=== PATIENT | male | born 1960 | race Caucasian/White ===

== ENCOUNTER 2018-11-06 15:22 | Inpatient (IN) | payer MEDICAID ==
[~2018-11-06] VITALS: Ht 188 cm; Wt 106.6 kg
--- NOTE | ~2018-11-06 | TEE ---
PATIENT:ZENOBIA TREJO MEDICAL RECORD: [id number] LOCATION:[place] [address] AGE OF PATIENT: 58 ADMISSION DATE: 11/06/18 SEX: M REFERRING PHYSICIAN: INTERPRETING PHYSICIAN: BLAINE BAUGH MD TRANSESOPHAGEAL ECHOCARDIOGRAM Date: 11/08/18 VIN CHARGE INDICATIONS: PREMEDICATIONS: PATIENT'S RESPONSE PROCEDURE DOPPLER MEASUREMENTS: LVIT LA PA 119 RA LVOT 113 RVOT 101 Asc. Ao 146 AV Gradient Peak 8.49 AV Mean 4.31 AV Area 2.9 MV Gradient Peak 4.23 MV Mean 1.96 MV Area INTERPRETATION: Doppler: 2-D: COLOR FLOW DOPPLER NORMAL SALINE STUDY: MISCELLANOUS: DIAGNOSIS: PLAN: Javascript Front End Developer:1 Dr. Baugh Hydrant Setter: Socorro MUJICA COMMENTS: DATE OF SERVICE: 11/12/2018 PROCEDURE: Attempted transesophageal echo. IV conscious sedation was per anesthesia. Transesophageal echo was attempted. The probe would pass to the proximal esophagus and then the probe would go no further. Most likely, there is esophageal stricture. Anesthesia tried as well and could not pass the probe. This would have to be done under general anesthesia if transesophageal echo is desired. TRANSESOPHAGEAL ECHOCARDIOGRAM REPORT [id number] ZENOBIA TREJO TRANSINT:[id number] Voice Confirmation ID: [id number] DOCUMENT ID: [id number] BLAINE BAUGH MD CC: [id number] DICTATION DATE: 11/12/18 1202 DOLL MAKER: 11/12/[address] [facility] [address] [place] [address]
--- NOTE | ~2018-11-06 | CN ---
PATIENT NAME:ZENOBIA TREJO MEDICAL RECORD: [id number] : 64 LOCATION:[facility] D.1210 ADMIT DATE: 11/06/18 ACCOUNT: [id number] CONSULTING PHYSICIAN: BLAINE FERNANDEZ MD REFERRING PHYSICIAN: ALENA ADORNO MD DATE OF CONSULTATION: 11/11/2018 CARDIOLOGY CONSULT DIAGNOSES: 1. Endocarditis. 2. Pancreatitis. 3. ETOH abuse. 4. Hypertension. 5. Tachycardia. 6. GERD. HISTORY: This is a gentleman who presented to the hospital with pancreatitis, withdrawal, and ETOH symptoms. 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 PHYSICAL EXAMINATION: GENERAL APPEARANCE: Well-nourished, well-developed, appears stated age. Level of distress, comfortable. PSYCHIATRIC: Mental status, alert, normal affect. Orientation, oriented to time, place and person. EYES: Lids and conjunctiva, noninjected. No discharge, no pallor. ENT: Lips, teeth, gums, normal dentition. Oropharynx, no cyanosis, no pallor. NECK: Carotid arteries, bilateral normal upstroke, no bruits, no thrills. JUGULAR VEINS: No jugular venous pressure or distention. CERVICAL LYMPH NODES: Nontender, nonenlarged. THYROID: Not enlarged. Nontender. No nodules. LUNGS: Respiratory effort, unlabored. CHEST: Normal curvature. No thoracic deformity. No chest wall tenderness. Percussion, resonant. Auscultation, clear. No wheezes, no rales, no rhonchi. CARDIOVASCULAR: Precordial exam, nondisplaced. No heaves or pericardial thrills. Rate and rhythm, regular. Heart sounds, normal S1, normal S2. No S3, no gallop, no rub. Systolic murmur, not heard. Diastolic murmur, not heard. EXTREMITIES: No cyanosis, no edema. Peripheral pulses, full and equal in all extremities, except as noted. No bruits appreciated. ABDOMEN: Soft, nondistended. Normal aorta. No bruit. Nontender. No masses. Liver, nontender, no hepatomegaly. Spleen, nontender, no splenomegaly. MUSCULOSKELETAL: No joint tenderness. No joint swelling. No erythema. NEUROLOGICAL: Normal gait, normal strength, normal tone. SKIN: Warm and dry. OVERALL IMPRESSION: Abnormal echo. We will proceed with transesophageal echo. TRANSINT:[id number] Voice Confirmation ID: [id number] DOCUMENT ID: [id number] CONSULT REPORT [id number] ZENOBIA TREJO JEFFREY MD CC: [id number] DICTATION DATE: 11/11/18 1009 MILK OF LIME SLAKER: 11/11/18 1332 ADM IN [facility] [address] [place] [id number]
--- NOTE | ~2018-11-06 | HEMODYNAMI ---
PATIENT:ZENOBIA TREJO MEDICAL RECORD: [id number] : 64 LOCATION:[address] ADMISSION DATE: 11/06/18 Generatedon:11/12/201812:14 Patient name: ZENOBIA TREJO Patient #: [id number] SSN: : 1960 Date of study: 11/12/2018 Page: Of Hemodynamic Procedure Report Patient Data Patient Demographics Procedure consent was obtained First Name: ZENOBIA Gender: Male Last Name: MAYA : 1960 Patient #: [id number] Age: 58 year(s) Race: Additional ID: [id number] Contact details [address]: [address] [place] [address] State: [place] City: [place] Zip code: [address] Past Medical History Allergies: No known allergies Admission Admission Data Admission Date: 11/06/2018 Admission Time: 18:21 Room #: [facility] Procedure Procedure Types Cath Procedure Diagnostic Procedure VIN Procedure Description Procedure Date Procedure Date: 11/12/2018 Procedure Start Time: 11:48 Procedure End Time: 12:08 Procedure Staff Name Function Anand Baugh MD Performing Physician Malcolm Leon RT Monitor Oracio Wong RN Nurse Procedure Medications Medication Administration Route Dosage Oxygen NC 6 l/min 0.9% NaCl I.V. 100 ml/hr Refer to Anesthesia Notes for Sedation Medications Hemodynamics Rest Heart Rate: 0 (bpm) Snapshots Pre Cath Intra NCS Post Cath Vital Signs Time Heart Resp SPO2 etCO2 NIBP (mmHg) Rhythm Pain Sedation Rate (ipm) (%) (mmHg) Status Level (bpm) 11:33:42 90 16 68 0 125/72(92) NSR 0 (11) 10(A) , No pain 11:37:54 86 16 97 0 118/76(93) NSR 0 (11) 10(A) , No pain 11:42:06 84 16 96 0 125/74(95) NSR 0 (11) 10(A) , No pain 11:46:14 91 17 95 0 122/85(102) NSR 0 (11) 10(A) , No pain 11:50:26 84 14 96 0 114/69(88) NSR 0 (11) 10(A) , No pain 11:55:25 87 25 92 0 Measuring NSR 0 (11) 10(A) , No pain 11:56:32 93 29 91 0 117/73(94) NSR 0 (11) 10(A) , No pain 12:00:44 91 18 92 0 122/75(91) NSR 0 (11) 10(A) , No pain 12:04:58 82 18 90 0 108/66(81) NSR 0 (11) 10(A) , No pain 12:08:21 85 19 89 0 115/69(92) NSR 0 (11) 10(A) , No pain 12:12:35 89 16 89 0 117/73(98) NSR 0 (11) 10(A) , No pain Medications Time Medication Route Dose Verified Delivered Reason Notes Effectiven ess by by 11:47:16 Oxygen NC 6 Anand Narayanan Per l/min Lupis Wong RN physician 11:47:24 0.9% NaCl I.V. 100 Anand Narayanan Per ml/hr Lupis Wong RN physician 11:47:29 Refer to Anand Narayanan Anesthesia Lupis Wong RN Notes for Sedation Medications Procedure Log Time Note 11:00:06 Informed consent obtained and on chart 11:00:11 Diagnostic Cath Status : Elective 11:02:46 Time tracking: Regular hours (M-F 7:00 - 5:00) 11:02:52 Plan of Care:Hemodynamics will remain stable., Cardiac rhythm will remain stable., Comfort level will be maintained., Respiratory function will remain adequate., Patient/ family verbilizes understanding of procedure., Procedure tolerated without complication., Recovers from procedure without complications.. 11:31:13 Patient received from Other to CCL 3 Alert and oriented. Tansferred to table in Supine position. 11:32:32 Warm blankets applied, and renetta hugger turned on for patient comfort. 11:32:33 Correct patient and procedure confirmed by team. 11:32:35 ECG and BP/O2 sat monitors applied to patient. 11:32:36 Vital chart was started 11:32:54 Baseline sample Acquired. 11:32:58 Rhythm: sinus rhythm 11:33:00 Full Disclosure recording started 11:35:59 H&P Date Dictated: 11/07/2018 Within 30 days and on chart.. 11:36:33 Pre-op teaching completed and patient verbalized understanding. 11:36:36 Family in patients room. 11:37:00 Patient NPO since Midnight. 11:37:10 Patient allergic to No known allergies 11:37:14 Patient diabetic? No. 11:37:19 Previous problem with sedation/anesthesia? No ? 11:37:21 Snore? Yes 11:37:23 Sleep apnea? No 11:37:24 Deviated septum? No 11:37:25 Opens mouth fully? Yes 11:37:27 Sticks out tongue? Yes 11:37:29 Airway obstruction? No ? 11:38:20 Dentures? Yes PARTIAL IN 11:38:33 IV patent on arrival in right forearm with 0.9% NaCl at O. 11:38:39 Alarms reviewed by Inga cK 11:39:49 Baseline sample Acquired. 11:42:47 ECHO IS PRESENT 11:43:12 FELIPE OTT WITH ANESTHESIA IS PRESENT 11:44:06 Physician arrived 11:44:07 --------ALL STOP TIME OUT------ 11:44:08 Final Timeout: patient, procedure, and site verified with staff and physician. All members of the team are in agreement. 11:44:42 Fire Safety Assessment: C--Open oxygen or nitrous oxide is being used. 11:44:47 Physical assessment completed. ASA score P 2 - A patient with mild systemic disease as per Anand Baugh MD. 11:44:53 Sedation plan: IV Moderate Sedation Medication:Propofol 11:47:16 Oxygen 6 l/min NC was administered by Oracio Wong RN; Per physician; 11:47:24 0.9% NaCl 100 ml/hr I.V. was administered by Oracio Wong RN; Per physician; 11:47:29 Refer to Anesthesia Notes for Sedation Medications was administered by Oracio Wong RN; ; 11:48:31 Procedure started. 11:50:23 VIN started. 11:59:39 UNABLE TO ADVANCE VIN PROBE , PROCEDURE ABORTED 12:00:14 Procedure ended.(Physican Out) 12:08:58 Procedure ended. 12:08:58 Full Disclosure recording stopped 12:13:51 End room use (Document Last) 12:14:35 Vital chart was stopped Signature Audit [place] Stage Time Signature Unsigned Intra-Procedure 11/12/2018 Malcolm Leon 12:14:20 PM RT(R) (CV) Signatures Monitor : Malcolm Leon RT Signature : Date : Time : [place] [id number] [place] [address]
[~2018-11-06 15:22] MED LIST: AMBIEN10 MG PO; HYDROCODONE-APA1 TAB PO; PEPCID20 MG PO; PRILOSEC20 MG PO; VALTREX500 MG PO
[2018-11-06 15:45] LABS: BASOPHILS 0.1 % (0-2); EOSINOPHILS 0.1 % (0-7); HEMATOCRIT 44.2 % (42.0-54.0); HEMOGLOBIN 15.7 g/dL (13.5-17.5); IMMATURE GRANULOCYTES 0.4 % (0-5); LYMPHOCYTES 8.1 % (15-50); MCH 33.4 pg (26.0-34.0); MCHC 35.5 g/dL (31.0-37.0); MEAN PLATELET VOLUME 9.5 fL (7.4-10.4); MONOCYTES 6.5 % (2-11); NEUTROPHILS 84.8 % (40-80); RDW 12.4 % (11.5-14.5); WBC 19.7 10x3/uL (4.8-10.8)
[2018-11-06 15:47] LABS: PLATELET COUNT 225 10x3/uL (130-400)
[2018-11-06 16:01] LABS: ALBUMIN 3.8 g/dL (3.4-5.0); BILIRUBIN - TOTAL 0.61 mg/dL (0.2-1.3); CARBON DIOXIDE 23.5 mmol/L (21.0-32.0); CREATININE - SERUM 1.1 mg/dL (0.6-1.3); POTASSIUM - SERUM 3.5 mmol/L (3.5-5.1); PROTEIN - SERUM 8.3 g/dL (6.4-8.2)
[2018-11-06 18:15] LABS: APPEARANCE CLEAR (CLEAR); BILIRUBIN NEGATIVE (NEGATIVE); COLOR YELLOW (YELLOW); GLUCOSE NEGATIVE (NEGATIVE); KETONE NEGATIVE (NEGATIVE); NITRITE NEGATIVE (NEGATIVE); PROTEIN NEGATIVE (NEGATIVE); SPECIFIC GRAVITY 1.015 (1.005-1.020); UROBILINOGEN NORMAL (NORMAL)
--- NOTE | 2018-11-06 19:15 | NUR ---
REPORT CALLED TO PT'S NURSE ON THE FLOOR BY LAURA CASTRO.
--- NOTE | 2018-11-06 19:50 | NUR ---
PT ARRIVED ON UNIT VIA WHEELCHAIR WITH MOTHER AND STAFF MEMBER. PT DENIES NEEDS OR PAIN AT THIS TIME. WILL CONTINUE TO MONITOR
--- NOTE | 2018-11-06 19:50 | NUR ---
PT ARRIVED ON UNIT VIA WHEELCHAIR WITH . PT DENIES NEEDS OR PAIN AT THIS TIME. WILL CONTINUE TO MONITOR.
[2018-11-06 20:00] VITALS: BP 155/96
[2018-11-07] VITALS: BP 124/73
--- NOTE | 2018-11-07 00:35 | NUR ---
PT TEMP WAS 103.1. CALLED [facility]. [facility] ORDERED BLOOD CULT X2, CHEST XRAY, UA, AND CHANGED MERREM FROM Q12H TO Q8H. TYLENOL WAS ALSO ORDER 650 Q6PRN FOR FEVER. WILL CONTINUE TO MONITOR.
--- NOTE | 2018-11-07 01:37 | NUR ---
MERREM NOT IN PYXIS. HOUSE SUP IS GETTING MED. WILL ADMINISTER WHEN AVAILABLE
--- NOTE | 2018-11-07 02:31 | NUR ---
TEMP IS NOW 99.3
[2018-11-07 04:30] VITALS: BP 125/75
[2018-11-07 05:15] VITALS: BP 155/96; BMI 30.2
[2018-11-07 07:12] LABS: BASOPHILS 0.1 % (0-2); EOSINOPHILS 0 % (0-7); HEMOGLOBIN 14.3 g/dL (13.5-17.5); IMMATURE GRANULOCYTES 0.2 % (0-5); LYMPHOCYTES 5.6 % (15-50); MCH 32.9 pg (26.0-34.0); MCHC 34.9 g/dL (31.0-37.0); MCV 94.3 fL (80.0-100.0); MEAN PLATELET VOLUME 9.9 fL (7.4-10.4); MONOCYTES 3.6 % (2-11); NEUTROPHILS 90.5 % (40-80); RBC 4.35 10x6/uL (4.20-6.10); RDW 12.6 % (11.5-14.5)
--- NOTE | 2018-11-07 07:20 | NUR ---
PT RESTING IN BED, EYES OPEN. C/O PAIN, PT GIVEN MORPHINE FOR PAIN. NO S/S OF ACUTE DISTRESS NOTED. PT NPO D/T PANCREATITIS. PT ALERT AND ORIENTED. UP AD JERMAINE. IV TO RIGHT WRIST, NS INFUSING @ 200ML/HR. SITE PATENT WITHOUT REDNESS OR SWELLING. POTASSIUM 3.1, GIVEN POTASSIUM TO COVER. PT DENIES ANYTHING FURTHER AT THIS TIME. CALL LIGHT IN REACH. FAMILY AT BEDSIDE. WILL CONTINUE TO MONITOR.
[2018-11-07 07:37] LABS: ALBUMIN 3.1 g/dL (3.4-5.0); ANION GAP 18.4 mmol/L (8-16); BILIRUBIN - TOTAL 1.45 mg/dL (0.2-1.3); CALCIUM 7.9 mg/dL (8.5-10.1); CARBON DIOXIDE 20.7 mmol/L (21.0-32.0); POTASSIUM - SERUM 3.1 mmol/L (3.5-5.1); PROTEIN - SERUM 6.8 g/dL (6.4-8.2)
[2018-11-07 07:38] LABS: PLATELET COUNT 148 10x3/uL (130-400); WBC 12.4 10x3/uL (4.8-10.8)
[2018-11-07 07:54] LABS: CREATININE - SERUM 1.4 mg/dL (0.6-1.3)
[2018-11-07 08:22] LABS: APPEARANCE CLEAR (CLEAR); COLOR YELLOW (YELLOW); SPECIFIC GRAVITY 1.015 (1.005-1.020)
[2018-11-07 08:23] LABS: NITRITE NEGATIVE (NEGATIVE); PROTEIN NEGATIVE (NEGATIVE)
[2018-11-07 08:24] LABS: BILIRUBIN NEGATIVE (NEGATIVE); GLUCOSE 100 mg/dL (NEGATIVE); KETONE NEGATIVE (NEGATIVE); UROBILINOGEN NORMAL (NORMAL)
[2018-11-07 08:25] LABS: BACTERIA FEW /hpf (NONE SEEN); EPITHELIAL CELLS NSEEN /hpf (0-5); RED CELLS - URINE 0-5 /hpf (0-5); WHITE CELLS - URINE 0-5 /hpf (0-5)
[2018-11-07 08:55] VITALS: BP 130/84
[2018-11-07 10:36] LABS: UDS - AMPHET NEGATIVE QUAL (NEGATIVE); UDS - BARB NEGATIVE QUAL (NEGATIVE); UDS - BENZO NEGATIVE QUAL (NEGATIVE); UDS - COCAINE NEGATIVE QUAL (NEGATIVE); UDS - OPIATE POSITIVE QUAL (NEGATIVE); UDS - PCP NEGATIVE QUAL (NEGATIVE); UDS - THC NEGATIVE QUAL (NEGATIVE)
[2018-11-07 11:41] VITALS: BP 116/57
[2018-11-07 14:13] VITALS: Ht 188 cm; Wt 106.6 kg
--- NOTE | 2018-11-07 19:00 | NUR ---
PT ALERT AND ORIENTED WHEN ENTERING THE ROOM. PT MOTHER AT BEDSIDE. PT PRESENTS WITH ABDOMINAL DISTENSION. STATES THIS IS "NOT NORMAL" RATES PAIN 04/23. STATES "I KNOW I CANT HAVE MY PAIN MEDICINE UNTIL AFTER 8:15." PT STATES PAIN RADIATES TO EITHER SIDE OF THE ABDOMEN. PT HAS RIGHT HAND IV THAT IS INFUSING NS AT 50/ML AN HOUR. CALL LIGHT IN REACH.
--- NOTE | 2018-11-07 19:19 | NUR ---
PT RESTING IN BED. NO C/O PAIN. NO S/S OF ACUTE DISTRESS NOTED. PT DENIES ANYTHING FURTHER AT THIS TIME. WILL CONTINUE TO MONITOR.
--- NOTE | 2018-11-07 19:32 | NUR ---
PT MOTHER CAME TO DESK AND STATED THAT SHE WILL BE LEAVING SOON AND ASKED THAT THIS NURSE GIVE PT PAIN MEDICINE EARLY. EXPLAINED TO PT AND TO MOTHER THAT I CAN NOT GIVE MEDS EARLY AND PT HAS TO ASK FOR PRN MEDICINE WHEN THEYRE NEEDED. PT AND MOTHER VERBALIZED UNDERSTANDING.
[2018-11-07 20:22] VITALS: BP 128/83
--- NOTE | 2018-11-07 20:30 | NUR ---
ASSESSED PT VITAL SIGNS. PT ASKED FOR PAIN MEDICINE. ADMINISTERED TO PT AND TOLERATED WELL WITH OTHER HS MEDICATIONS. RATED PAIN "HEAVY 9". PT STATED HE PLANS TO GO TO SLEEP NOW. CALL LIGHT IN REACH.
[2018-11-08] VITALS (7 sets, daily range): BP systolic 106–140; BP diastolic 62–84
--- NOTE | 2018-11-08 02:13 | NUR ---
I have reviewed this patient and I concur with the Shift Assessment completed by the Licensed Practical Nurse today this shift.
[2018-11-08 06:30] LABS: BASOPHILS 0.1 % (0-2); EOSINOPHILS 0 % (0-7); HEMATOCRIT 38.7 % (42.0-54.0); HEMOGLOBIN 13.4 g/dL (13.5-17.5); MCH 32.7 pg (26.0-34.0); MCHC 34.6 g/dL (31.0-37.0); MCV 94.4 fL (80.0-100.0); MEAN PLATELET VOLUME 10.2 fL (7.4-10.4); MONOCYTES 4.3 % (2-11); NEUTROPHILS 89.6 % (40-80); RDW 12.8 % (11.5-14.5); WBC 12.2 10x3/uL (4.8-10.8)
[2018-11-08 06:42] LABS: PLATELET COUNT 114 10x3/uL (130-400)
[2018-11-08 06:54] LABS: CREATININE - SERUM 1.2 mg/dL (0.6-1.3)
[2018-11-08 06:55] LABS: ALBUMIN 2.5 g/dL (3.4-5.0); ANION GAP 14.8 mmol/L (8-16); BILIRUBIN - TOTAL 3.77 mg/dL (0.2-1.3); CALCIUM 8.2 mg/dL (8.5-10.1); CARBON DIOXIDE 24.1 mmol/L (21.0-32.0); POTASSIUM - SERUM 3.9 mmol/L (3.5-5.1); PROTEIN - SERUM 6.8 g/dL (6.4-8.2)
--- NOTE | 2018-11-08 07:40 | NUR ---
ASSESSMENT COMPLETE. IV TO R HAND WITH REDNESS AND TENDERNESS NOTED. IV REMOVED. CATHETER TIP INTACT. IV RESITED TO R FA WITH 20 GAUGE X 1 ATTEMPT. PROCALAMINE INFUSING AT 75 CC/HR VIA PUMP. SCD'S IN USE TO BILAT LEGS. MOTHER AT BEDSIDE. DENIES ANY NEEDS AT THIS TIME.
--- NOTE | 2018-11-08 08:53 | NUR ---
DILAUDID GIVEN SLOW IVP FOR ABDOMINAL PAIN.
--- NOTE | 2018-11-08 13:01 | NUR ---
DILAUDID GIVEN SLOW IVP FOR COMPLAINT OF ABDOMINAL PAIN.
--- NOTE | 2018-11-08 17:11 | NUR ---
DILAUDID GIVEN SLOW IVP FOR ABDOMINAL PAIN. MOTHER AT BEDSIDE. DENIES ANY FURTHER NEEDS AT THIS TIME.
--- NOTE | 2018-11-08 22:55 | NUR ---
RECIEVED UP IN BED WITH EYES CLOSED. EASILY AROUSES WITH VERBAL STIMULI. C/O ABD PAIN. REPORTED PRESSURE. NOCO GIVEN AND EFFECTIVE. REQUESTED HYDRMORPHONE LATER. MED GIVEN AND EFFECTIVE. RESTING IN BED WITH EYES CLOSED AT THIS TIME AND MOTHER AT BEDSIDE. IV TO RIGHT FA WITH NS AT 50CC/HR AND PROCALAMINE AT 75CC/HR.
[2018-11-09 05:00] VITALS: BP 127/72
[2018-11-09 07:34] LABS: BASOPHILS 0.1 % (0-2); EOSINOPHILS 0.3 % (0-7); HEMATOCRIT 33.3 % (42.0-54.0); HEMOGLOBIN 11.5 g/dL (13.5-17.5); IMMATURE GRANULOCYTES 0.4 % (0-5); LYMPHOCYTES 8.5 % (15-50); MCH 32.2 pg (26.0-34.0); MCHC 34.5 g/dL (31.0-37.0); MCV 93.3 fL (80.0-100.0); MEAN PLATELET VOLUME 10.5 fL (7.4-10.4); MONOCYTES 5.9 % (2-11); NEUTROPHILS 84.8 % (40-80); PLATELET COUNT 101 10x3/uL (130-400); RBC 3.57 10x6/uL (4.20-6.10); RDW 12.5 % (11.5-14.5)
[2018-11-09 07:39] LABS: WBC 7.7 10x3/uL (4.8-10.8)
--- NOTE | 2018-11-09 07:45 | NUR ---
ASSESSMENT COMPLETE. IV TO R FA PATENT. PROCALAMINE INFUSING AT 75 CC/HR AND NS INFUSING AT 50 CC/HR VIA PUMP. SCD'S IN USE TO BILAT LEGS. NPO EXCEPT ICE CHIPS. FAMILY AT BEDSIDE.
--- NOTE | 2018-11-09 07:47 | NUR ---
RESTING QUIETLY WITH EYES CLOSED. RESP EVEN,NONLABORED. MOTHER AT BEDSIDE.
[2018-11-09 07:57] LABS: ALBUMIN 2.2 g/dL (3.4-5.0); ALKALINE PHOSPHATASE 61 U/L (46-116); ALT (SGPT) 88 U/L (10-68); BILIRUBIN - TOTAL 8.63 mg/dL (0.2-1.3); CALC OSMOLALITY 274 mosm/kg (275-300); CARBON DIOXIDE 23.7 mmol/L (21.0-32.0); CHLORIDE - SERUM 99 mmol/L (98-107); CREATININE - SERUM 0.9 mg/dL (0.6-1.3); GLUCOSE 242 mg/dL (74-106); LIPASE 261 U/L (73-393); POTASSIUM - SERUM 3.8 mmol/L (3.5-5.1); PROTEIN - SERUM 6.3 g/dL (6.4-8.2); SODIUM 132 mmol/L (136-145); UREA NITROGEN 19 mg/dL (7-18); eGFR NON AFRICAN AMERICAN > 90 mL/min (90-120)
[2018-11-09 07:58] LABS: AMYLASE - SERUM 20 U/L (25-115)
[2018-11-09 08:00] VITALS: BP 123/73
--- NOTE | 2018-11-09 10:30 | NUR ---
MRI OF ABDOMEN COMPLETED.
--- NOTE | 2018-11-09 12:15 | NUR ---
NOTIFIED BY FORM WORKER THAT O2 SAT WOULDN'T COME ABOVE 88% WHILE OBTAINING VITAL SIGNS. O2 SAT 88% ON RA. O2 2L NC APPLIED. O2 SAT SAT 89%. O2 INCREASED TO 3L NC. O2 SAT 91%. ENCOURAGED TO BREATH THROUGH NOSE. FAMILY AT BEDSIDE.
[2018-11-09 12:16] VITALS: BP 134/82
--- NOTE | 2018-11-09 15:03 | EC ---
PATIENT:ZENOBIA TREJO DATE OF SERVICE: 11/06/18 SEX: M MEDICAL RECORD: [id number] DATE OF : [birth year] LOCATION:[address] AGE OF PATIENT: 58 ADMISSION DATE: 11/06/18 REFERRING PHYSICIAN: INTERPRETING PHYSICIAN: BLAINE BAUGH MD ECHOCARDIOGRAM REPORT ECHO CHARGES 4 ECHO COMPLETE Date: 11/08/18 CLINICAL DIAGNOSIS: ASSESS FOR VEGATATION/ FEVER AND POSITIVIE BLOOD CULTURES ECHOCARDIOGRAPHIC MEASUREMENTS (adult normal given) AC root (d.<3.7cm) 3.3 cm LV Septum d (<1.2 cm> 1.3 cm Valve Excursion 1.5 cm LV Septum (systole) 1.6 cm Left Atria (s.<4.0cm> 3.4 cm LVPW d(<1.2cm) 1.4 cm RV (d.<2.3cm) 3.4 cm LVPW (sytole) 1.8 cm LV diastole(<5.6CM) 6.7 cm MV E-F(>70mm/sec) cm LV systole 5.4 cm LVOT Diameter 2.2 cm MV exc.(>10mm) 1.3 cm Est.ejection fraction (50-75%) % DOPPLER: LVIT cm/sec A 92.0 cm/sec E 80.0 cm/sec LA cm/sec RVSP 21 mmHg LVOT 113 cm/sec AOP1/2T m/s Asc. Ao 146 cm/sec RVOT 101 cm/sec RA cm/sec PA 119 cm/sec AV Gradient Peak 8.49 mmHg AV Mean 4.31 mmHg AV Area 2.9 cm MV Gradient Peak 4.23 mmHg MV Mean 1.96 mmHg MV Area cm COMMENTS: Risk Consulting Treasury Director: Socorro MUJICA Grinding Room Supervisor: Ashwini Baugh TAPE# PACS Pericardial Effusion N DATE OF SERVICE: 11/08/2018 FINDINGS: 1. Left ventricular chamber size is within normal limits. Left ventricular systolic function is normal. Overall ejection fraction estimated at 55%. 2. Left atrium, right atrium, and right ventricular chamber sizes are within normal limits. 3. 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 The mitral valve as well has a lesion compatible with endocarditis. The remaining valvular structures have normal structure and ECHOCARDIOGRAM REPORT [id number] ZENOBIA TREJO motion. 4. Doppler interrogation only reveals trace tricuspid regurgitation. No other valvular insufficiency or stenosis. 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 TRANSINT:[id number] Voice Confirmation ID: [id number] DOCUMENT ID: [id number] BLAINE BAUGH MD at 1503 CC: [id number] DICTATION DATE: 11/09/18904 PROFESSIONAL ORGANIZER: 11/09/18 1124 ADM IN [place] [id number] [place] [id number]
[2018-11-09 16:00] VITALS: BP 136/75
--- NOTE | 2018-11-09 17:58 | NUR ---
DILAUDID GIVEN SLOW IVP FOR C/O OF ABDOMINAL PAIN.
[2018-11-09 21:14] VITALS: BP 135/83
[2018-11-10] VITALS: BP 128/81
--- NOTE | 2018-11-10 03:22 | NUR ---
I have reviewed this patient and I concur with the Shift Assessment completed by the Licensed Practical Nurse today this shift.
[2018-11-10 04:00] VITALS: BP 138/86
[2018-11-10 07:28] LABS: BASOPHILS 0.2 % (0-2); EOSINOPHILS 0.8 % (0-7); HEMATOCRIT 31.7 % (42.0-54.0); IMMATURE GRANULOCYTES 0.3 % (0-5); LYMPHOCYTES 10.2 % (15-50); MCH 32.3 pg (26.0-34.0); MCHC 34.7 g/dL (31.0-37.0); MEAN PLATELET VOLUME 9.8 fL (7.4-10.4); NEUTROPHILS 80.5 % (40-80); PLATELET COUNT 101 10x3/uL (130-400); RBC 3.41 10x6/uL (4.20-6.10); RDW 12.5 % (11.5-14.5); WBC 6.6 10x3/uL (4.8-10.8)
[2018-11-10 07:52] LABS: ALKALINE PHOSPHATASE 80 U/L (46-116); ALT (SGPT) 91 U/L (10-68); AMYLASE - SERUM 16 U/L (25-115); BILIRUBIN - DIRECT 7.28 mg/dL (0.00-0.30); BILIRUBIN - TOTAL 9.18 mg/dL (0.2-1.3); CALC OSMOLALITY 272 mosm/kg (275-300); CALCIUM 8.1 mg/dL (8.5-10.1); CARBON DIOXIDE 23.1 mmol/L (21.0-32.0); CHLORIDE - SERUM 99 mmol/L (98-107); CREATININE - SERUM 0.9 mg/dL (0.6-1.3); GLUCOSE 231 mg/dL (74-106); LIPASE 205 U/L (73-393); POTASSIUM - SERUM 3.6 mmol/L (3.5-5.1); PROTEIN - SERUM 6.4 g/dL (6.4-8.2); SODIUM 132 mmol/L (136-145); UREA NITROGEN 15 mg/dL (7-18); eGFR NON AFRICAN AMERICAN > 90 mL/min (90-120)
[2018-11-10 07:53] VITALS: BP 129/82
--- NOTE | 2018-11-10 08:15 | NUR ---
PT AOX4 RESP EVEN AND NONLABORED PT DENIES NEEDS AT THIS TIME IV TO RIGHT FOREARM PATENT AND INTACT AT THIS TIME SRX2 BED AT LOWEST SETTING CALL LIGHT WITHIN REACH WILL CONTINUE TO MONITOR
--- NOTE | 2018-11-10 11:21 | NUR ---
Nutrition follow up: Procalamine continues at 75mL/hour Started on clear liquids-noted pt is tolerating clear liquid RD following
[2018-11-10 11:59] VITALS: BP 129/73
[2018-11-10 16:06] VITALS: BP 130/73
--- NOTE | 2018-11-10 19:29 | NUR ---
PT RESTING QUIETLY. SITTING UP IN BED. CALL LIGHT IN REACH. NO SIGNS OF DISTRESS OR PAIN. BED IN LOW SIDE RAILS X2. RESP EVEN AND UNLABORED. O2 ON 3.5L VIA NC. WILL CONTINUE TO MONITOR.
[2018-11-10 20:14] VITALS: BP 131/70
--- NOTE | 2018-11-11 02:00 | NUR ---
PT RESTING QUIETLY. EYES CLOSED. MOM IN ROOM IN RECLINER. RESP EVEN AND UNLABORED. NO SIGNS OF DISTRESS OR PAIN.
--- NOTE | 2018-11-11 02:06 | NUR ---
I have reviewed this patient and I concur with the Shift Assessment completed by the Licensed Practical Nurse today this shift.
[2018-11-11 05:17] VITALS: BP 129/79
--- NOTE | 2018-11-11 06:19 | NUR ---
PROCAL NOT IN PYXIS AND CALLED PHARMACY NO ONE ANSWERED. WILL RETRY IN A LITTLE WHILE.
[2018-11-11 06:46] LABS: BASOPHILS 0.3 % (0-2); EOSINOPHILS 0.7 % (0-7); HEMATOCRIT 30.9 % (42.0-54.0); HEMOGLOBIN 10.5 g/dL (13.5-17.5); IMMATURE GRANULOCYTES 0.7 % (0-5); LYMPHOCYTES 12.6 % (15-50); MCH 32.1 pg (26.0-34.0); MCV 94.5 fL (80.0-100.0); MEAN PLATELET VOLUME 10.2 fL (7.4-10.4); MONOCYTES 8.9 % (2-11); NEUTROPHILS 76.8 % (40-80); RBC 3.27 10x6/uL (4.20-6.10); RDW 12.7 % (11.5-14.5); WBC 7.3 10x3/uL (4.8-10.8)
[2018-11-11 06:49] LABS: PLATELET COUNT 143 10x3/uL (130-400)
[2018-11-11 07:10] LABS: ALBUMIN 1.9 g/dL (3.4-5.0); ALKALINE PHOSPHATASE 77 U/L (46-116); AMYLASE - SERUM 14 U/L (25-115); BILIRUBIN - TOTAL 3.73 mg/dL (0.2-1.3); CALC OSMOLALITY 273 mosm/kg (275-300); CARBON DIOXIDE 21.4 mmol/L (21.0-32.0); CHLORIDE - SERUM 99 mmol/L (98-107); GLUCOSE 241 mg/dL (74-106); LIPASE 175 U/L (73-393); POTASSIUM - SERUM 3.6 mmol/L (3.5-5.1); PROTEIN - SERUM 6.5 g/dL (6.4-8.2); SODIUM 132 mmol/L (136-145); UREA NITROGEN 16 mg/dL (7-18); eGFR NON AFRICAN AMERICAN 82 mL/min (90-120)
[2018-11-11 07:15] LABS: ALT (SGPT) 66 U/L (10-68)
[2018-11-11 07:39] VITALS: BP 129/80
--- NOTE | 2018-11-11 08:05 | NUR ---
PT AOX4 RESP EVEN AND NONLABORED PT DENIES NEEDS AT THIS TIME IV TO RIGHT FOREARM PATENT AND INTACT AT THIS TIME SRX2 BED AT LOWEST SETTING CALL LIGHT WITHIN REACH AT THIS TIME
[2018-11-11 11:36] VITALS: BP 128/72
--- NOTE | 2018-11-11 19:31 | NUR ---
INTRODUCED SELF TO PATIENT, PATIENT HAD MOTHER AT BEDSIDE. RESP EVEN AND UNLABORED. NO NEEDS AT THIS TIME.
[2018-11-11 20:00] VITALS: BP 113/37; BP 137/73
[2018-11-12 00:10] VITALS: BP 110/62
[2018-11-12 04:00] VITALS: BP 127/73
--- NOTE | 2018-11-12 05:47 | NUR ---
TYLENOL GIVEN AT 0430. TEMP DOWN TO 98.9 FROM 100.4
[2018-11-12 07:34] LABS: ALKALINE PHOSPHATASE 78 U/L (46-116); ALT (SGPT) 52 U/L (10-68); AMYLASE - SERUM 15 U/L (25-115); BILIRUBIN - TOTAL 2.45 mg/dL (0.2-1.3); CALC OSMOLALITY 272 mosm/kg (275-300); CALCIUM 7.9 mg/dL (8.5-10.1); CARBON DIOXIDE 24.3 mmol/L (21.0-32.0); CHLORIDE - SERUM 97 mmol/L (98-107); GLUCOSE 262 mg/dL (74-106); LIPASE 175 U/L (73-393); POTASSIUM - SERUM 3.7 mmol/L (3.5-5.1); PROTEIN - SERUM 6.7 g/dL (6.4-8.2); SODIUM 131 mmol/L (136-145); UREA NITROGEN 14 mg/dL (7-18); eGFR NON AFRICAN AMERICAN 82 mL/min (90-120)
[2018-11-12 07:41] LABS: BASOPHILS 1.1 % (0-2); EOSINOPHILS 1.1 % (0-7); HEMATOCRIT 31.3 % (42.0-54.0); HEMOGLOBIN 10.5 g/dL (13.5-17.5); IMMATURE GRANULOCYTES 0.5 % (0-5); MCH 31.8 pg (26.0-34.0); MCHC 33.5 g/dL (31.0-37.0); MCV 94.8 fL (80.0-100.0); MEAN PLATELET VOLUME 10.4 fL (7.4-10.4); MONOCYTES 7.1 % (2-11); NEUTROPHILS 69.2 % (40-80); RDW 12.9 % (11.5-14.5); WBC 6.2 10x3/uL (4.8-10.8)
[2018-11-12 07:46] LABS: PLATELET COUNT 185 10x3/uL (130-400)
--- NOTE | 2018-11-12 08:00 | NUR ---
PATIENT IS ALERT/ORIENT. MOTHER AT BEDSIDE. VOICES NO NEEDS AT THIS TIME. WILL CONTINUE WITH PLAN OF CARE
[2018-11-12 08:42] VITALS: BP 118/65
--- NOTE | 2018-11-12 09:53 | NUR ---
TROUGH WAS DRAWN INCORRECTLY. DOSE WAS HUNG AT 0400, TROUGH DRAWN AT 0630. LEVEL WAS ONLY 21, SINCE THIS IS MORE A PEAK THAN A TROUGH WILL INCREASE THE PATIENTS DOSE TO 1.5 GRAM Q 12H(~15MG/KG). WILL REDRAW A LEVEL AFTER 4 DOSES
--- NOTE | 2018-11-12 10:24 | NUR ---
DR FERNANDEZ CALLED IN REGARDS TO VIN. TRANESOPHGEAL ENCHOCAROTIOGRAPHY. DR FERNANDEZ STATED THAT PATIENT IS TO STAY NPO FOR PROCEEDURE. CONSENTS SIGNED FOR PROCEEDURE
--- NOTE | 2018-11-12 11:33 | NUR ---
PATIENT TAKEN DOWN TO CAR REPAIR SUPERVISOR BY STAFF FOR PROCEEDURE
--- NOTE | 2018-11-12 12:24 | NUR ---
FERMENTING CELLARS RECEIVER CALLED TO GIVE REPORT TO THIS NURSE. STATED THEY WERE NOT ABLE TO SCOPE PATIENT. STATED THAT DR FERNANDEZ WOULD BE DOWN TO TALK WITH FAMILY AND POSSIBLE TO PATIENT TO SURGERY.
--- NOTE | 2018-11-12 12:30 | NUR ---
V/S T 98.4, B/P 120/68, R 16, P 99 PO 94%
--- NOTE | 2018-11-12 12:59 | NUR ---
THIS NURSE CALLED TELEVISION AGENT IN REGARDS TO PARITAL THAT FAMILY SAID IS NOT IN MOUTH. FAMILY STATED THAT IT WAS IN HIS MOUTH WHEN HE WENT TO TELEVISION AGENT. EVELYN FROM TELEVISION AGENT TO COME AND TALK WITH FAMILY
[2018-11-12 17:19] VITALS: BP 140/76
--- NOTE | 2018-11-12 17:25 | NUR ---
PRN TYLENOL GIVEN FOR TEMP OF 102.0
--- NOTE | 2018-11-12 18:05 | NUR ---
TEMP RETAKEN 101.4
--- NOTE | 2018-11-12 18:24 | NUR ---
AGREE WITH LPNS ASSESSMENT.
--- NOTE | 2018-11-12 20:47 | NUR ---
THE PATIENT WAS LYING IN BED AND TALKING TO FAMILY WHEN STAFF ENTERED HIS ROOM. BED IS IN THE LOW POSITION WITH SIDERAILS X2 AND CALL LIGHT WITHIN REACH. THE PATIENT WAS EDUCATED ON, AND DEMONSTRATED APPROPRIATE USE OF A CALL LIGHT. THE PATIENT APPEARS COMFORTABLE WITH NO QUESTIONS OR CONCERNS AT THIS TIME.
[2018-11-12 21:02] VITALS: BP 117/67
[2018-11-13] VITALS: BP 135/79; BP 97/59
--- NOTE | 2018-11-13 02:44 | NUR ---
THE PATIENT APPEARS TO BE SLEEPING COMFORTABLY. BED IS IN THE LOW POSITION WITH SIDERAILS X2 AND CALL LIGHT WITHIN REACH.
[2018-11-13 03:08] LABS: HEPATITIS C ANTIBODY <0.1 S/CO RAT (0.0-0.9)
[2018-11-13 04:00] VITALS: BP 138/73
--- NOTE | 2018-11-13 07:30 | NUR ---
PT AAOX4 RESP EVEN AND NONLABORED, NO SIGNS OF DISTRESS NOTED MOM AT BEDSIDE, CL IN REACH
[2018-11-13 07:54] VITALS: BP 135/73
--- NOTE | 2018-11-13 10:12 | NUR ---
Nutrition Follow Up Reviewed chart and available labs and spoke with pt Remains on Procalamine Diet advanced to [facility] Pt reports eating a few bites and tolerating diet well Pt has no nutrition related questions at this time Will follow up
[2018-11-13 12:23] VITALS: BP 125/71
[2018-11-13 14:28] LABS: BILIRUBIN - DIRECT 1.25 mg/dL (0.00-0.30); BILIRUBIN - INDIRECT 0.39 mg/dL (0.00-1.00); BILIRUBIN - TOTAL 1.64 mg/dL (0.2-1.3)
[2018-11-13 17:09] LABS: ANA REFLEX - DIRECT Negative (Negative)
--- NOTE | 2018-11-13 19:46 | NUR ---
THE PATIENT WAS LYING IN BED AND TALKING TO FAMILY WHEN STAFF ENTERED HIS ROOM. BE DIS IN THE LOW POSITION WITH SIDERAILS X2 AND CALL LIGHT WITHIN REACH. THE PATIENT WAS EDUCATED ON THE NEED TO CALL STAFF FOR ANY ASSISTANCE NEEDED. THE PATIENT DEMONSTRATES UNDERSTANDING VIA TEACHBACK METHOD. THE PATIENT APPEARS COMFORTABLE WITH NO QUESTIONS OR CONCERNS AT THIS TIME.
[2018-11-13 20:00] VITALS: BP 122/73
[2018-11-14] VITALS: BP 117/70
--- NOTE | 2018-11-14 02:18 | NUR ---
THE PATIENT APPEARS TO BE SLEEPING. BED IS IN THE LOW POSITION WITH SIDERAILS X2 AND CALL LIGHT WITHIN REACH.
[2018-11-14 04:30] VITALS: BP 113/70
--- NOTE | 2018-11-14 08:15 | NUR ---
WENT INTO PATIENT'S ROOM. PATIENT ON FLOOR. LAURA GARCIA AND MICHAEL BOATENG BOTH PRESENT ATTEMPTING TO GET PATIENT UP. PATIENT'S MOTHER STATED, "HE HAD THOSE SOCKS ON BUT HIS LEGS JUST WENT APART." I ASKED IF PATIENT WAS TO BE GETTING UP BY HIMSELF I WAS TOLD YES, HE IS SUPPOSED TO BE GOING HOME TODAY. I WAS TOLD IN REPORT THAT PATIENT IS UP AD JERMAINE WITH FAMILY. PATIENT HAS NO LEG STRENGTH AT ALL AND IS UNABLE TO GET UP OR WALK ON OWN. REHAB EVAL OR PT CONSULT SHOULD BE DONE BEFORE DISCHARGE.
--- NOTE | 2018-11-14 08:30 | NUR ---
PT WAS GOING TO GET IN THE SHOWER AND ACCORDING TO PT'S MOTHER, HIS FEET WERE SLIDING UNDER HIM, SO SHE HELPED PT TO THE FLOOR, TOOK TWO NURSES AND OPERATIONAL COMMUNICATION CHIEF TO GET PT OFF FLOOR. OPERATIONAL COMMUNICATION CHIEF THINKS SHE HURT HER SHOULDER TRYING TO GET PT OFF FLOOR.
[2018-11-14 09:25] VITALS: BP 109/70
[2018-11-14 12:46] VITALS: BP 109/67
[2018-11-14 14:12] LABS: MITOCHONDRIAL ANTIBODY <20.0 Units (0.0-20.0); SMOOTH MUSCLE ABS (ACTIN) 11 Units (0-19)
--- NOTE | 2018-11-14 15:50 | NUR ---
AGREE WITH NANOTECHNOLOGY ENGINEERING TECHNOLOGIST'S ASSESMENT. PT RESTING COMFORTABLY IN BED, FAMILY AT BEDSIDE, NAD NOTED.
--- NOTE | 2018-11-14 15:56 | NUR ---
Rehab Prescreening Consult recieved and the chart has been reviewed. He is [place] Medicaid which does not cover inpatient rehab. Thank you for the referral. Carmelita Tamayo RN Clinical Liaison, Rehab
[2018-11-14 16:23] VITALS: BP 118/65
[2018-11-14 19:00] VITALS: BP 122/71
--- NOTE | 2018-11-14 19:39 | NUR ---
PT SITTING UP IN BED. CALL LIGHT IN REACH. PT DENIES NEEDS OR PAIN AT THIS TIME. BED IN LOW. SIDE RAILS X2. RESP EVEN AND UNLABORED. BED ALARM ON. YELLOW GOWN ON. NONSKID SOCKS ON. SISTER AND MOM AT BEDSIDE. WILL CONTINUE TO MONITOR.
[2018-11-15 00:34] VITALS: BP 127/70
--- NOTE | 2018-11-15 00:59 | NUR ---
PT SITTING UP IN BED. CALL LIGHT IN REACH. MOM IN ROOM. BED ALARM ON. PT DOES SEEM MORE CONFUSED TONIGHT THEN PREVIOUS NIGHTS. TOILETED PT TWICE BUT HAS NOT URINATED EVEN THOUGH HE STATES HE PEED ALOT. PT IS VERY WEAK WITH HIS LEGS. WILL CONTINUE TO MONITOR.
--- NOTE | 2018-11-15 02:16 | NUR ---
I have reviewed this patient and I concur with the Shift Assessment completed by the Licensed Practical Nurse today this shift.
[2018-11-15 04:38] VITALS: BP 113/68
--- NOTE | 2018-11-15 06:24 | NUR ---
PT DROPPED CUP OF WATER ON BED. ENTIRE BED CHANGED. NEW CLOTHES PUT ON PT. CALL LIGHT IN REACH.
--- NOTE | 2018-11-15 07:20 | NUR ---
RESTING QUIETLY IN BED WITH EYES CLOSED. RESP EVEN,NONLABORED. MOTHER AT BEDSIDE.
--- NOTE | 2018-11-15 07:45 | NUR ---
ASSESSMENT COMPLETE. NO IV ACCESS. NIK MAT IN USE. ABDOMEN DISTENDED. MOTHER AT BEDSIDE.
[2018-11-15 08:47] LABS: CALC OSMOLALITY 282 mosm/kg (275-300); CALCIUM 8.2 mg/dL (8.5-10.1); CARBON DIOXIDE 28.1 mmol/L (21.0-32.0); CHLORIDE - SERUM 101 mmol/L (98-107); GLUCOSE 316 mg/dL (74-106); SODIUM 136 mmol/L (136-145); UREA NITROGEN 11 mg/dL (7-18); eGFR NON AFRICAN AMERICAN 82 mL/min (90-120)
--- NOTE | 2018-11-15 10:00 | NUR ---
RIGHT PICC LINE PLACED BY CRYSTAL MARTE RN.
[2018-11-15 12:24] VITALS: BP 123/67
--- NOTE | 2018-11-15 17:29 | MORECARE ---
CASE MANAGEMENT DISCHARGE SUMMARY PATIENT: ZENOBIA TREJO UNIT: [id number] ADM DATE: 11/06/18 AGE: 58 : 64 SEX: M ROOM/BED: D.1210 AUTHOR: ROBERT WEST PHYSICIAN: REFERRING PHYSICIAN: ALENA ADORNO MD DATE OF SERVICE: 11/15/18 Discharge Plan Patient Name: ZENOBIA TREJO Facility: [facility]:[place] : 1960 Planned Disposition: Inpatient Rehab Anticipated Discharge Date: 11/16/18 Discharge Date: Expected LOS: 10 Initial Reviewer: [email or web address] Initial Review Date: 11/15/2018 Generated: 11/15/18 6:29 pm Comments DCP- Discharge Planning Updated by [email or web address]: Michelle Xiong on 11/15/18 4:[address] After obtaining verbal consent, CM met with patient and mother about discharge planning / needs. Patient is in agreement to go to rehab. CM confirmed that [facility] will accept Medicaid. CM spoke with Ameya about referral and faxed records as requested. Awaiting determination. CM will continue to follow and assist as needed with discharge planning / needs. External Providers External Provider: [facility] Next Contact Date: Service Request Date: Service Type: Resolution: Reviewer: Comments: Patient Name: ZENOBIA TREJO Page [phone] at 1729 All edits/amendments must be made on the electronic document DICTATION DATE: 11/15/181727 CRUISE COORDINATOR: ROBERTO 11/15/181727 RPT#: [id number] DC DATE: STATUS: ADM IN [facility] [address] [place] [address] END OF REPORT
--- NOTE | 2018-11-15 18:20 | NUR ---
RESTING QUIETLY IN BED. NIK MAT IN USE.
--- NOTE | 2018-11-15 20:06 | NUR ---
MOTHER AT BEDSIDE, CALL LIGHT IN REACH.
[2018-11-15 20:57] VITALS: BP 122/65
--- NOTE | 2018-11-15 22:45 | NUR ---
I have reviewed this patient and I concur with the Shift Assessment completed by the Licensed Practical Nurse today this shift.
[2018-11-16 00:14] VITALS: BP 124/75
--- NOTE | 2018-11-16 02:29 | NUR ---
REST QUIETLY IN BED, RESP EVEN, NO DISTRESS, CALL LIGHT IN REACH.
--- NOTE | 2018-11-16 05:02 | NUR ---
REFUSED 4AM VITAL SIGNS, CALL LIGHT IN REACH.
[2018-11-16 06:42] LABS: BASOPHILS 0.4 % (0-2); EOSINOPHILS 1.1 % (0-7); HEMOGLOBIN 10.4 g/dL (13.5-17.5); IMMATURE GRANULOCYTES 0.2 % (0-5); LYMPHOCYTES 20.5 % (15-50); MCHC 33.5 g/dL (31.0-37.0); MCV 95.4 fL (80.0-100.0); MEAN PLATELET VOLUME 9.7 fL (7.4-10.4); NEUTROPHILS 70.8 % (40-80); RBC 3.25 10x6/uL (4.20-6.10); RDW 13.1 % (11.5-14.5); WBC 5.6 10x3/uL (4.8-10.8)
[2018-11-16 06:53] LABS: PLATELET COUNT 326 10x3/uL (130-400)
[2018-11-16 06:58] LABS: ALBUMIN 2.1 g/dL (3.4-5.0); ALKALINE PHOSPHATASE 75 U/L (46-116); ALT (SGPT) 45 U/L (10-68); BILIRUBIN - TOTAL 1.06 mg/dL (0.2-1.3); CALC OSMOLALITY 280 mosm/kg (275-300); CALCIUM 8.2 mg/dL (8.5-10.1); CARBON DIOXIDE 25.4 mmol/L (21.0-32.0); CHLORIDE - SERUM 102 mmol/L (98-107); CREATININE - SERUM 0.8 mg/dL (0.6-1.3); GLUCOSE 291 mg/dL (74-106); PROTEIN - SERUM 6.8 g/dL (6.4-8.2); SODIUM 136 mmol/L (136-145); eGFR NON AFRICAN AMERICAN > 90 mL/min (90-120)
[2018-11-16 07:01] LABS: UREA NITROGEN 8 mg/dL (7-18)
[2018-11-16 07:04] VITALS: BP 100/60
--- NOTE | 2018-11-16 07:30 | NUR ---
PT SITTING ON SIDE OF BED, COMPLAINS OF BACK HURTING. PRN NORCO WILL BE GIVEN WITH AM MEDS. PT MOM AT BEDSIDE. SHIFT ASSESSMENT PERFORMED. VSS AND WNL. WILL CONT TO FOLLOW PLAN OF CARE
--- NOTE | 2018-11-16 10:34 | NUR ---
PHYSICAL THERAPY HERE WITH PT, PT IS UP ON WALKER AND WALKED IN CABAN WITH GAIT BELT
[2018-11-16 11:43] VITALS: BP 109/62
[2018-11-16] MEDS ORDERED: ROCEPHIN 1 GM/D51 G1 IV (12:31)
[2018-11-16] MEDS ORDERED: LOPRESSOR25 MG PO (12:32)
[2018-11-16] MEDS ORDERED: LIBRIUM25 MG PO (12:32)
[2018-11-16] MEDS ORDERED: VANCOMYCIN 1.5 GM/NS IV (12:32)
[2018-11-16] MEDS ORDERED: FLORAJEN3 CAPS460 MG PO (12:32)
[2018-11-16] MEDS ORDERED: PROTONIX40 MG PO (12:33)
--- NOTE | 2018-11-16 15:45 | MORECARE ---
CASE MANAGEMENT DISCHARGE SUMMARY PATIENT: ZENOBIA TREJO UNIT: [id number] ADM DATE: 11/06/18 AGE: 58 : 64 SEX: M ROOM/BED: D.1210 AUTHOR: ROBERT WEST PHYSICIAN: REFERRING PHYSICIAN: ALENA ADORNO MD DATE OF SERVICE: 11/16/18 Discharge Plan Patient Name: ZENOBIA TREJO Facility: [facility]:[place] : 1960 Planned Disposition: Inpatient Rehab Anticipated Discharge Date: 11/16/18 Discharge Date: Expected LOS: 10 Initial Reviewer: [email or web address] Initial Review Date: 11/15/2018 Generated: 11/16/18 4:45 pm Comments DCP- Discharge Planning Updated by [email or web address]: Michelle Xiong on 11/15/18 4:[address] After obtaining verbal consent, CM met with patient and mother about discharge planning / needs. Patient is in agreement to go to rehab. CM confirmed that [facility] will accept Medicaid. CM spoke with Ameya about referral and faxed records as requested. Awaiting determination. CM will continue to follow and assist as needed with discharge planning / needs. External Providers External Provider: [facility] Next Contact Date: Service Request Date: Service Type: Resolution: Reviewer: Comments: Last DP export: 11/15/18 4:29 pm Patient Name: ZENOBIA TREJO Page [phone] at 1545 All edits/amendments must be made on the electronic document DICTATION DATE: 11/16/181543 COMPOSITE ASSEMBLER: ROBERTO 11/16/18 1544 RPT#: [id number] DC DATE: STATUS: ADM IN [facility] [address] [place] [address] END OF REPORT
--- NOTE | 2018-11-16 17:44 | MORECARE ---
CASE MANAGEMENT DISCHARGE SUMMARY PATIENT: ZENBOIA TREJO UNIT: [id number] ADM DATE: 11/06/18 AGE: 58 : 64 SEX: M ROOM/BED: D.1210 AUTHOR: ROBERT WEST PHYSICIAN: REFERRING PHYSICIAN: ALENA ADORNO MD DATE OF SERVICE: 11/16/18 Discharge Plan Patient Name: ZENOBIA TREJO Facility: [facility]:[place] : 1960 Planned Disposition: Inpatient Rehab Anticipated Discharge Date: 11/16/18 Discharge Date: Expected LOS: 10 Initial Reviewer: [email or web address] Initial Review Date: 11/15/2018 Generated: 11/16/18 6:44 pm Comments DCP- Discharge Planning Updated by [email or web address]: Michelle Xiong on 11/15/18 4:[address] After obtaining verbal consent, CM met with patient and mother about discharge planning / needs. Patient is in agreement to go to rehab. CM confirmed that [facility] will accept Medicaid. CM spoke with Ameya about referral and faxed records as requested. Awaiting determination. CM will continue to follow and assist as needed with discharge planning / needs. Last DP export: 11/16/18 2:45 pm Patient Name: ZENOBIA TREJO Page [phone] at 1744 All edits/amendments must be made on the electronic document DICTATION DATE: 11/16/181742 PROPERTY CUSTODIAN: ROBERTO 11/16/181742 RPT#: [id number] DC DATE: STATUS: ADM IN [facility] [address] [place] [address] END OF REPORT
--- NOTE | 2018-11-16 17:53 | MORECARE ---
CASE MANAGEMENT DISCHARGE SUMMARY PATIENT: ZENOBIA TREJO UNIT: [id number] ADM DATE: 11/06/18 AGE: 58 : 64 SEX: M ROOM/BED: D.1210 AUTHOR: BRETT,DOC PHYSICIAN: REFERRING PHYSICIAN: ALENA ADORNO MD DATE OF SERVICE: 11/16/18 Discharge Plan Patient Name: ZENOBIA TREJO Facility: [facility]:[place] : 1960 Planned Disposition: Inpatient Rehab Anticipated Discharge Date: 11/16/18 Discharge Date: Expected LOS: 10 Initial Reviewer: [email or web address] Initial Review Date: 11/15/2018 Generated: 11/16/18 6:53 pm Comments DCP- Discharge Planning Updated by [id number]: Michelle Xiong on 11/16/18 4:[address] Late entry for 10:05 CM received call from [facility] at [facility] Facility has declined admission. CM placed call to patient's mother to discuss home health services. Was informed that patient's mother is at ER and would call CM when she is available. Late entry for 16:10 CM met with patient's mother about discharge plans. Mother selected [facility] and [facility] mother and sisters will all be staying with patent at this address to assist with his needs. Mother and sister are both willing to learn how to do home IV Antibiotics. CM called and spoke with Shabnam with [facility] about referral. Faxed records as requested. CM called and spoke with Nancy at [facility] about referral. Faxed records as requested. CM notified that patient's expense for IV Abx will be $6.00 / month. Infusion company will deliver antibiotics to hospital around 18:00 today. [facility] will manage IV's tonight and this weekend. [facility] will admit patient Monday. CM confirmed this with Nancy at [facility]. Notified mother and nurse. Both verbalized understanding. Mother verbalized satisfaction with discharge plans. CM will continue to follow and assist as needed with discharge planning. DCP- Discharge Planning Updated by [id number]: Michelle Xiong on 11/15/18 4:[address] After obtaining verbal consent, CM met with patient and mother about discharge planning / needs. Patient is in agreement to go to rehab. CM confirmed that [facility] will accept Medicaid. CM spoke with Ameya about referral and faxed records as requested. Awaiting determination. CM will continue to follow and assist as needed with discharge planning / needs. DCPIA - Discharge Planning Initial Assessment Updated by [email or web address]: Michelle Xiong on 11/16/18 5:45 pm * Is the patient Alert and Oriented? No * How many steps to enter\exit or inside your home? RAMP * PCP Dr Moy Hugo * Pharmacy [facility] * Preadmission Environment Home Alone * ADLs Independent * Equipment None * List name and contact numbers for known caregivers / representatives who currently or will assist patient after discharge: Randa Carrasco, mother, * Verbal permission to speak to the caregivers and representatives has been obtained from the patient. N/A * Community resources currently utilized None * Additional services required to return to the preadmission environment? Yes * Can the patient safely return to the preadmission environment? No * Has this patient been hospitalized within the prior 30 days at any hospital? No Coverage Notice Reviewer: [id number] - Michelle Xiong Notice Issued Date-Time: 11/16/2018 16:10 Notice Type: Patient Choice Letter Notice Delivered To: Family Member Relationship to Patient: Mother Real Estate Management Specialist Name: Juju Carrasco Delivery Method: HAND - Hand Delivered Courtney Days: Prior Verbal Notification: Recipient Understood Notice: Yes Recipient Signature: Yes Med Rec Note Co-signed by Attending: Coverage Notice Comment: [facility] Last DP export: 11/16/18 4:44 pm Patient Name: ZENOBIA TREJO Page [phone] at 1753 All edits/amendments must be made on the electronic document DICTATION DATE: 11/16/181751 ROUTE SALES PERSON: ROBERTO 11/16/181751 RPT#: [id number] DC DATE: STATUS: ADM IN [facility] [address] [place] [address] END OF REPORT
--- NOTE | 2018-11-16 21:03 | NUR ---
OT NOTE: PT COMPLETED SIT TO STAND WITH CGA. PT COMPLETED SIT BALANCE WTH SPV. PT COMPLETED BUE AROM EXS. PT COMPLETED SIMPLE GROOMING TASK UPRIGHT IN CHAIR WITH SET UP. THANK YOU, CHRISTINE GUAMAN
[2018-11-17 20:06] LABS: AEROBE ID Final report (()); RESULT 1 Enterococcus avium (())
== END 2018-11-16 19:12 | disposition home health service (06) | DRG 288 ==
LOC: D.ER 15:22 → D.EDHOLD 18:21 → D.M3 18:21
PROVIDERS: Family Medicine; Internal Medicine Gastroenterology; ADMIT Internal Medicine Nephrology; ATTEND Internal Medicine Nephrology
PROC: 05HY33Z Insertion of Infusion Device into Upper Vein, Percutaneous Approach (ICD-10-PCS; principal; 2018-11-15)
DX: I33.0 Acute and subacute infective endocarditis (principal); K85.20 Alcohol induced acute pancreatitis without necrosis or infection; J96.01 Acute respiratory failure with hypoxia; J69.0 Pneumonitis due to inhalation of food and vomit; N17.9 Acute kidney failure, unspecified; F17.213 Nicotine dependence, cigarettes, with withdrawal; E87.6 Hypokalemia; I10 Essential (primary) hypertension; K21.9 Gastro-esophageal reflux disease without esophagitis; F10.10 Alcohol abuse, uncomplicated; B95.2 Enterococcus as the cause of diseases classified elsewhere; B96.1 Klebsiella pneumoniae [K. pneumoniae] as the cause of diseases classified elsewhere

== ENCOUNTER → 2018-11-21 10:27 | Outpatient (CLI) | payer MEDICAID ==
[2018-11-07 14:13] VITALS: BMI 30.1
[~2018-11-21 10:27] MED LIST changes: +FLORAJEN3 CAPS460 MG PO; +LIBRIUM25 MG PO; +LOPRESSOR25 MG PO; +NORVASC10 MG PO; +PROTONIX40 MG PO; +ROCEPHIN 1 GM/D51 G1 IV; +VANCOMYCIN 1.5 GM/NS IV
[2018-11-21 11:48] LABS: CREATININE - SERUM 1.8 mg/dL (0.6-1.3); VANCOMYCIN - TROUGH 19.6 ug/mL (10.0-20.0)
== END | disposition home or self-care (01) ==
LOC: D.LABREF 10:27
PROVIDERS: ATTEND Student in an Organized Health Care Education/Training Program
DX: I38 Endocarditis, valve unspecified (principal)

== ENCOUNTER → 2018-11-26 11:48 | Outpatient (CLI) | payer MEDICAID ==
[2018-11-07 14:13] VITALS: BMI 30.1
[2018-11-26 16:42] LABS: CREATININE - SERUM 5.8 mg/dL (0.6-1.3)
[2018-11-26 17:08] LABS: VANCOMYCIN - TROUGH 82.6 ug/mL (10.0-20.0)
== END | disposition home or self-care (01) ==
LOC: D.LABREF 11:48
PROVIDERS: ATTEND Emergency Medicine
DX: I38 Endocarditis, valve unspecified (principal)

== ENCOUNTER 2018-11-26 18:51 | Inpatient (IN) | payer MEDICAID ==
[~2018-11-26] VITALS: Ht 188 cm; Wt 94.7 kg
[~2018-11-26 18:51] MED LIST changes: -NORVASC10 MG PO
[2018-11-26 22:34] LABS: BASOPHILS 0.3 % (0-2); EOSINOPHILS 0.6 % (0-7); HEMATOCRIT 29.6 % (42.0-54.0); HEMOGLOBIN 9.9 g/dL (13.5-17.5); IMMATURE GRANULOCYTES 0.1 % (0-5); LYMPHOCYTES 14.3 % (15-50); MCH 30.5 pg (26.0-34.0); MCHC 33.4 g/dL (31.0-37.0); MCV 91.1 fL (80.0-100.0); MEAN PLATELET VOLUME 9.3 fL (7.4-10.4); MONOCYTES 10.7 % (2-11); PLATELET COUNT 286 10x3/uL (130-400); RBC 3.25 10x6/uL (4.20-6.10); RDW 13.6 % (11.5-14.5)
[2018-11-26 22:40] LABS: ALBUMIN 2.5 g/dL (3.4-5.0); ANION GAP 18.1 mmol/L (8-16); BILIRUBIN - TOTAL 0.56 mg/dL (0.2-1.3); CALCIUM 8.3 mg/dL (8.5-10.1); CARBON DIOXIDE 22.1 mmol/L (21.0-32.0); CREATININE - SERUM 6.2 mg/dL (0.6-1.3); POTASSIUM - SERUM 5.2 mmol/L (3.5-5.1); PROTEIN - SERUM 7.6 g/dL (6.4-8.2)
[2018-11-27] VITALS (8 sets, daily range): BP systolic 84–122; BP diastolic 47–68; BMI 29.8
--- NOTE | 2018-11-27 03:10 | NUR ---
RECEIVED FROM ER VIA WC. AMBULATED WITH ASSISTANCE TO THE BED. ALERT/ORIENTED X4. HAS RT UA PICC WITH NS INFUSING STARTED IN ER AT 999ML/HR. DENIES PAIN. REQUESTED TEMP TURNED UP IN THE ROOM AND A WARM BLANKET. HIS IS PRESENT WITH HIM. AMBULATES WITH WALKER AND PARTIAL ASSISTANCE. ORIENTED TO ROOM AND THE CALL LIGHT. STATED HE WANTS TO GO TO SLEEP.
--- NOTE | 2018-11-27 03:26 | NUR ---
ADMIN THE D5 1/2NS WITH 100MEQ NA BICARB PER ORDER. CALLED RENAL: GAGE OTT APN TO CLARIFY ORDER PER ANNE'S INSTRUCTION. STATED TO GO AHEAD AND GIVE ORDER AND WILL ASSESS TOMORROW.
[2018-11-27] MEDS ORDERED: NORVASC10 MG PO (04:02)
--- NOTE | 2018-11-27 07:30 | NUR ---
RECEIVED PT IN BED AAOX4 RESP UNLABORED SKIN W/D DENIEA ANY NEEDS OR DISCOMFORT AT THIS TIME NAD NOTED MOTHER AT BEDSIDE
[2018-11-27 09:53] LABS: BASOPHILS 0.4 % (0-2); EOSINOPHILS 0.8 % (0-7); HEMATOCRIT 29.2 % (42.0-54.0); HEMOGLOBIN 9.8 g/dL (13.5-17.5); IMMATURE GRANULOCYTES 0.2 % (0-5); LYMPHOCYTES 14.7 % (15-50); MCH 30.5 pg (26.0-34.0); MCHC 33.6 g/dL (31.0-37.0); MEAN PLATELET VOLUME 9.3 fL (7.4-10.4); MONOCYTES 12.9 % (2-11); PLATELET COUNT 269 10x3/uL (130-400); RBC 3.21 10x6/uL (4.20-6.10); RDW 13.6 % (11.5-14.5); WBC 5.3 10x3/uL (4.8-10.8)
[2018-11-27 10:32] LABS: ANION GAP 14.9 mmol/L (8-16); POTASSIUM - SERUM 4.9 mmol/L (3.5-5.1)
[2018-11-27 10:51] LABS: VANCOMYCIN - RANDOM 64.5 ug/mL (10.0-20.0)
[2018-11-27 12:49] LABS: APPEARANCE CLEAR (CLEAR); BILIRUBIN NEGATIVE (NEGATIVE); COLOR STRAW (YELLOW); GLUCOSE 50 mg/dL (NEGATIVE); KETONE NEGATIVE (NEGATIVE); NITRITE NEGATIVE (NEGATIVE); PROTEIN NEGATIVE (NEGATIVE); UROBILINOGEN NORMAL (NORMAL)
--- NOTE | 2018-11-27 19:45 | NUR ---
ATTEMPTED TO DRAW BLOOD CLX FROM RIGHT ARM PICC. BOTH LINES FLUSHED WELL HOWEVER WASNT ABLE TO GET ANY BLOOD RETURN. WILL HAVE SECOND NURSE TRY.
--- NOTE | 2018-11-27 20:01 | NUR ---
CHARGE NURSE AT BED SIDE TO ATTEMPT LINE DRAW. JUST BEFORE, BOTH LINES FLUSH, BUT NEITHER WILL DRAW BACK BLOOD.
--- NOTE | 2018-11-27 20:04 | NUR ---
PAGE OUT TO DR JORGE TO NOTIFY THAT PICC LINE WILL NOT DRAW BACK.
[2018-11-28] VITALS (7 sets, daily range): BP systolic 86–128; BP diastolic 45–76; Ht 188 cm; Wt 94.7 kg
--- NOTE | 2018-11-28 00:24 | NUR ---
RESTING WITH EYES CLOSED, RESPERATIONS EVEN, NO S/S DISTRESS NOTED.
[2018-11-28 07:04] LABS: BASOPHILS 0.2 % (0-2); EOSINOPHILS 0.9 % (0-7); HEMATOCRIT 29.7 % (42.0-54.0); HEMOGLOBIN 10.1 g/dL (13.5-17.5); IMMATURE GRANULOCYTES 0.2 % (0-5); LYMPHOCYTES 10.7 % (15-50); MCV 91.1 fL (80.0-100.0); MEAN PLATELET VOLUME 9.4 fL (7.4-10.4); MONOCYTES 10.3 % (2-11); NEUTROPHILS 77.7 % (40-80); PLATELET COUNT 282 10x3/uL (130-400); RBC 3.26 10x6/uL (4.20-6.10); RDW 13.7 % (11.5-14.5); WBC 6.4 10x3/uL (4.8-10.8)
[2018-11-28 07:24] LABS: ANION GAP 16.8 mmol/L (8-16); CALCIUM 8.4 mg/dL (8.5-10.1); CARBON DIOXIDE 24.2 mmol/L (21.0-32.0)
--- NOTE | 2018-11-28 08:17 | NUR ---
ASSESSMENT DONE. DENIES NEEDS.
--- NOTE | 2018-11-28 17:22 | NUR ---
BLADDER SCAN SHOWES 4CC. WITHOUT CHANGES OR DISTRESS NOTED AT THIS TIME. DENIES NEEDS.
--- NOTE | 2018-11-28 20:34 | NUR ---
HS MEDS GIVEN WITH FRESH ICE WATER. NORCO 1 TAB GIVEN AT PT REQUEST FOR C/O PAIN. NO OTHER NEEDS EXPRESSED AT THIS TIME.
--- NOTE | 2018-11-29 03:11 | NUR ---
RESTING WITH EYES CLOSED, RESPERATIONS EVEN, NO S/S DISTRESS NOTED.
--- NOTE | 2018-11-29 03:37 | NUR ---
NORCO 1 TAB GIVEN AT PT REQUEST FOR C/O PAIN, RATES PAIN AT AN 8 ON PAIN SCALE.
--- NOTE | 2018-11-29 04:13 | NUR ---
I have reviewed this patient and I concur with the Shift Assessment completed by the Licensed Practical Nurse today this shift.
[2018-11-29 05:02] VITALS: BP 82/46
[2018-11-29 05:03] LABS: BASOPHILS 0.4 % (0-2); HEMATOCRIT 29.3 % (42.0-54.0); HEMOGLOBIN 9.8 g/dL (13.5-17.5); IMMATURE GRANULOCYTES 0.4 % (0-5); MCH 30.5 pg (26.0-34.0); MCHC 33.4 g/dL (31.0-37.0); MCV 91.3 fL (80.0-100.0); MEAN PLATELET VOLUME 9.5 fL (7.4-10.4); MONOCYTES 11.3 % (2-11); NEUTROPHILS 70.9 % (40-80); PLATELET COUNT 264 10x3/uL (130-400); RBC 3.21 10x6/uL (4.20-6.10); RDW 13.8 % (11.5-14.5); WBC 5.4 10x3/uL (4.8-10.8)
[2018-11-29 05:38] LABS: ANION GAP 18.3 mmol/L (8-16); CALCIUM 8.6 mg/dL (8.5-10.1); CARBON DIOXIDE 22.3 mmol/L (21.0-32.0); CREATININE - SERUM 6.1 mg/dL (0.6-1.3); POTASSIUM - SERUM 4.6 mmol/L (3.5-5.1); VANCOMYCIN - RANDOM 42.1 ug/mL (10.0-20.0)
--- NOTE | 2018-11-29 07:25 | NUR ---
ASSESSMENT DONE. DENIES NEEDS.
[2018-11-29 09:39] VITALS: BP 90/49
[2018-11-29 11:45] VITALS: BP 93/51
[2018-11-29 16:48] VITALS: BP 127/65
--- NOTE | 2018-11-29 19:21 | NUR ---
PT RESTING IN BED. NO S/S OF DISTRESS. DENIES ANY NEEDS. NAME AND DATE PLACED ON BOARD. [facility]
--- NOTE | 2018-11-29 20:53 | NUR ---
PT RESTING IN BED. AAO, DENIES ANY NEEDS. NO S/S OF DISTRESS. ROCEPHIN STARTED. PT VERBALIZED UNDERSTANDING. NORISHMENT PROVIDED. OTIS CPOC
[2018-11-29 21:14] VITALS: BP 94/52
--- NOTE | 2018-11-29 22:37 | NUR ---
NORCO GIVEN FOR LOWER BACK PAIN. DENIES ANY OTHER NEEDS. WILL CPOC
--- NOTE | 2018-11-30 01:50 | NUR ---
NORCO GIVEN FOR LOWER BACK PAIN
--- NOTE | 2018-11-30 02:22 | NUR ---
PT FAMILY MEMBER WORRIED ABOUT TEMP. CHECKED TEMP AND IT IS 98.3
[2018-11-30 03:53] VITALS: BP 98/54
[2018-11-30 05:45] LABS: BASOPHILS 0.2 % (0-2); EOSINOPHILS 4.1 % (0-7); HEMATOCRIT 30.5 % (42.0-54.0); HEMOGLOBIN 10.1 g/dL (13.5-17.5); IMMATURE GRANULOCYTES 0.2 % (0-5); LYMPHOCYTES 22.8 % (15-50); MCH 30.5 pg (26.0-34.0); MCHC 33.1 g/dL (31.0-37.0); MCV 92.1 fL (80.0-100.0); MEAN PLATELET VOLUME 9.7 fL (7.4-10.4); MONOCYTES 10.1 % (2-11); NEUTROPHILS 62.6 % (40-80); PLATELET COUNT 252 10x3/uL (130-400); RBC 3.31 10x6/uL (4.20-6.10); RDW 13.9 % (11.5-14.5); WBC 4.2 10x3/uL (4.8-10.8)
[2018-11-30 06:05] LABS: ANION GAP 16.8 mmol/L (8-16); CALCIUM 8.4 mg/dL (8.5-10.1); CREATININE - SERUM 5.7 mg/dL (0.6-1.3); POTASSIUM - SERUM 4.8 mmol/L (3.5-5.1)
--- NOTE | 2018-11-30 07:40 | NUR ---
ASSESSMENT DONE. DENIES NEEDS.
[2018-11-30 08:49] VITALS: BP 92/47
[2018-11-30 12:35] VITALS: BP 93/57
--- NOTE | 2018-11-30 13:17 | NUR ---
Nutrition Follow Up: Chart reviewed Diet: Renal ADA PO Intake: 38% meal avg BM: 11/26/18 Meds and labs reviewed Rec consider liberalizing diet to encourage po intake. Rec consider an appetite stimulant. RD following.
[2018-11-30 16:16] VITALS: BP 91/53
--- NOTE | 2018-11-30 17:58 | NUR ---
WITHOUT CHANGES OR DISTRESS NOTED AT THIS TIME. DENIES NEEDS.
--- NOTE | 2018-11-30 21:31 | NUR ---
INITIAL ROUNDS COMPLETED AT 1909 HRS. PT REQUESTING A PAIN PILL. NORCO 10/325 PO GIVEN AT 1920 HRS. ASSESSMENT COMPLETED AT 2039 HRS. VSS. IV TO [facility] PICC WITH NS AT 30CC/HR. IV PATENT. LUNGS DIMINISHED N BASES BILAT. PATEL. ALERT AND ORIENTED TO PERSON, PLACE AND TIME. PT CURENTLY RESTING WITH EYES CLOSED. RESP EVEN AND REGULAR. SR UP X2, CALL LIGHT WITHIN REACH.
--- NOTE | 2018-12-01 00:55 | NUR ---
NORCO 10/325 PO GIVEN FOR C/O CHRONIC BACK PAIN. SR PER CM HR 87. CALL LIGHT WITHIN REACH.
[2018-12-01 00:56] VITALS: BP 106/57
--- NOTE | 2018-12-01 02:32 | NUR ---
PT RESTING WITH EYES CLOSED. RESP EVEN AND REGULAR. SR UP X2, CALL LIGHT WITHIN REACH.
[2018-12-01 04:00] VITALS: BP 93/50
--- NOTE | 2018-12-01 04:18 | NUR ---
PT WATCHNG TV. NO DISTRESS NOTED. CALL LIGHT WITHIN REACH.
[2018-12-01 05:07] LABS: BASOPHILS 0.5 % (0-2); EOSINOPHILS 3.1 % (0-7); HEMATOCRIT 30.8 % (42.0-54.0); HEMOGLOBIN 10.2 g/dL (13.5-17.5); IMMATURE GRANULOCYTES 0.2 % (0-5); LYMPHOCYTES 20.9 % (15-50); MCH 30.4 pg (26.0-34.0); MCHC 33.1 g/dL (31.0-37.0); MCV 91.7 fL (80.0-100.0); MEAN PLATELET VOLUME 9.3 fL (7.4-10.4); MONOCYTES 10.7 % (2-11); NEUTROPHILS 64.6 % (40-80); PLATELET COUNT 225 10x3/uL (130-400); RBC 3.36 10x6/uL (4.20-6.10); WBC 4.2 10x3/uL (4.8-10.8)
[2018-12-01 05:29] LABS: ANION GAP 15.8 mmol/L (8-16); CALCIUM 8.2 mg/dL (8.5-10.1); CARBON DIOXIDE 24.7 mmol/L (21.0-32.0); CREATININE - SERUM 5.1 mg/dL (0.6-1.3); POTASSIUM - SERUM 4.5 mmol/L (3.5-5.1); VANCOMYCIN - RANDOM 29.9 ug/mL (10.0-20.0)
--- NOTE | 2018-12-01 06:13 | NUR ---
VSS THROUGOUT NIGHT. SR BRUNILDA. PT STATES PO NORCO KEEPS HIS PAIN IN CHECK. NEEDS MET; WILL CONTINUE TO MONITOR.
--- NOTE | 2018-12-01 07:00 | NUR ---
RECEIVED REPORT. ASSUMED CARE OF PATIENT. RESTING IN BED WITH EYES CLOSED. RESP EVEN AND UNLABORED. NO DISTRESS. PATIENT EASILY AROUSED. DENIES NEEDS. CALL LIGHT WITHIN REACH.
[2018-12-01 09:12] VITALS: BP 94/54
--- NOTE | 2018-12-01 09:27 | NUR ---
MEDCATED FOR PAIN AT THIS TIME. PEPCID ADMINISTERED FOR INDIGESTION. TUMS ADMINISTERED FOR INSTANT RELIEF AT THIS TIME. QUESTIONED PATIENT ABOUT LIBRIUM AND PATIENT STATES HE NEVER GETS TREMORS FROM ALCOHOL WITHDRAWL AND HAS NEVER HAD TO USE IT BUT THEY GAVE IT TO HIM ANYWAY. NO DISTRESS. RESTING IN BED AT THIS TIME
--- NOTE | 2018-12-01 11:24 | NUR ---
RESTING IN BED, NO DISTRESS, IV FLUIDS INFUSING ORDERED. CALL LIGHT WITHIN REACH.
--- NOTE | 2018-12-01 12:15 | NUR ---
PATIENT OFF UNIT IN WHEELCHAIR WITH HIS MOM. PATIENT IN NO DISTRESS UPON LEAVING UNIT.
[2018-12-01 12:54] VITALS: BP 97/60
--- NOTE | 2018-12-01 13:18 | NUR ---
TELEMETRY REMOVED. PATIENT PICC LINE WRAPPED. PATIENT IN SHOWER AT THIS TIME.
--- NOTE | 2018-12-01 13:19 | NUR ---
WHILE WRAPPING PATIENTS ARM TO GET INT THE SHOWER, THIS STAFF MIDWIFE SMELLED CIGERETTE SMOKE ON HIM. PATIENT DENIES GOING OUTSIDE TO SMOKE. PATIENT HAS NICOTINE PATCH ON RIGHT DELTOID. PATIENT STATES THAT HIS MOM SMOKES. PATIENTS MOM STATES SHE WILL NOT LET HIM SMOKE.
--- NOTE | 2018-12-01 13:50 | NUR ---
SHOWER COMPLETED AND BACK IN BED. PATIENT MEDICATED FOR PAIN AT THIS TIME. NO DISTRESS. CALL LIGHT WITHIN REACH.
--- NOTE | 2018-12-01 15:30 | NUR ---
PATIENT WITH EYES CLOSED. NO VISITORS AT BEDSIDE. RESP EVEN AND UNLABORED. NO DISTRESS. CALL LIGHT WITHIN REACH.
[2018-12-01 17:23] VITALS: BP 100/61
--- NOTE | 2018-12-01 18:02 | NUR ---
MEDICATED FOR PAIN AT THIS TIME. NO DISTRESS.
[2018-12-01 20:00] VITALS: BP 109/67
--- NOTE | 2018-12-01 20:05 | NUR ---
INITIAL ROUNDS COMPLETED AT 1910 HRS. NO DISTRESS NOTED. ASSESSMENT COMPLETED AT 2005 HRS. SR PER CM HR 74. LUNGS DIMINISHED IN BASES BILAT. HEART TONES S1S2. PICC LINE TO UPPER R ARM WITH NS AT 30CC/HR. REINFORCED TO PT TO MEASURE URINE. PT STATED HE FORGETS TO DO THAT. CALL LIGHT WITHIN REACH.
--- NOTE | 2018-12-01 21:54 | NUR ---
PT RESTING WITH EYES CLOSED. RESP EVEN AND REGULAR. CALL LIGHT WITHIN REACH.
--- NOTE | 2018-12-01 23:26 | NUR ---
TYLENOL 500MG PO GIVEN FOR TEMP 101. NORCO 10/325 PO GIVEN FOR C/O CHRONIC BACK PAIN. CALL LIGHT WITHIN REACH.
[2018-12-02] VITALS: BP 115/69
--- NOTE | 2018-12-02 00:15 | NUR ---
PT RESTING WITH EYES CLOSED. RESP EVEN AND REGULAR. SR UP X2, CALL LIGHT WITHIN REACH.
--- NOTE | 2018-12-02 02:14 | NUR ---
PT AWAKE; DENIES ANY DISCOMFORT. CALL LIGHT WITHIN REACH.
--- NOTE | 2018-12-02 03:55 | NUR ---
PT RESTING WITH EYES CLOSED. RESP EVEN AND REGULAR. SR UP X2, CALL LIGHT WITHIN REACH.
[2018-12-02 04:00] VITALS: BP 101/62
--- NOTE | 2018-12-02 06:15 | NUR ---
AFEBRILE THIS AM. SR PER CM. PT RESTED WELL DURING SHIDT. NEEDS MET; WILL CONTINUE TO MONITOR.
[2018-12-02 06:38] LABS: CALCIUM 8.7 mg/dL (8.5-10.1); CARBON DIOXIDE 25.7 mmol/L (21.0-32.0); CREATININE - SERUM 4.4 mg/dL (0.6-1.3); POTASSIUM - SERUM 4.7 mmol/L (3.5-5.1); VANCOMYCIN - RANDOM 24.8 ug/mL (10.0-20.0)
--- NOTE | 2018-12-02 07:00 | NUR ---
RECIEVED REPORT. ASSUMED CARE OF PATIENT. RESTING WITH EYES CLOSED. SINUS RHYTHM ON TELEMETRY. CALL LIGHT WITHIN REACH. IV FLUIDS INFUSING AT KVO TO RIGHT UPPER ARM PICC. NO DISTRESS.
[2018-12-02 07:15] LABS: BASOPHILS 0.2 % (0-2); EOSINOPHILS 3.4 % (0-7); HEMATOCRIT 30.9 % (42.0-54.0); HEMOGLOBIN 10.2 g/dL (13.5-17.5); IMMATURE GRANULOCYTES 0.2 % (0-5); LYMPHOCYTES 19.6 % (15-50); MCH 30.4 pg (26.0-34.0); MCV 92.2 fL (80.0-100.0); MEAN PLATELET VOLUME 9.5 fL (7.4-10.4); NEUTROPHILS 68.6 % (40-80); PLATELET COUNT 248 10x3/uL (130-400); RBC 3.35 10x6/uL (4.20-6.10); RDW 14.1 % (11.5-14.5); WBC 4.7 10x3/uL (4.8-10.8)
[2018-12-02 08:14] VITALS: BP 100/60
--- NOTE | 2018-12-02 11:16 | NUR ---
MEDICATED FOR PAIN. PATIENT SLEEPING MORE TODAY BUT COMPLAINS HE IS STILL IN PAIN. NO DISTRESS. CALL LIGHT WITHIN REACH.
[2018-12-02 12:08] VITALS: BP 103/46
--- NOTE | 2018-12-02 14:02 | MORECARE ---
CASE MANAGEMENT DISCHARGE SUMMARY PATIENT: ZENOBIA TREJO UNIT: [id number] ADM DATE: 11/27/18 AGE: 58 : 64 SEX: M ROOM/BED: D.2123 AUTHOR: ROBERT WEST PHYSICIAN: REFERRING PHYSICIAN: ALENA ADORNO MD DATE OF SERVICE: 12/02/18 Discharge Plan Patient Name: ZENOBIA TREJO Facility: [facility]:[place] : 1960 Planned Disposition: Home Anticipated Discharge Date: 12/04/18 Discharge Date: Expected LOS: 7 Initial Reviewer: [email or web address] Initial Review Date: 12/02/2018 Generated: 12/02/18 3:02 pm DCPIA - Discharge Planning Initial Assessment Updated by [id number]: Heather Cotton on 12/02/18 2:00 pm * Is the patient Alert and Oriented? Yes * How many steps to enter\exit or inside your home? * PCP DR. SAN * Pharmacy [facility] [address] * Preadmission Environment Home with Family * ADLs Independent * Equipment Bedside Commode Cane Shower Chair Walker Wheelchair * List name and contact numbers for known caregivers / representatives who currently or will assist patient after discharge: ROBBY (SISTER) [phone] KEYANA (MOM) [phone] * Verbal permission to speak to the caregivers and representatives has been obtained from the patient. Yes * Community resources currently utilized None * Additional services required to return to the preadmission environment? Yes * Can the patient safely return to the preadmission environment? Yes * Has this patient been hospitalized within the prior 30 days at any hospital? No Coverage Notice Reviewer: [id number] - Heather Cotton Notice Issued Date-Time: 12/02/2018 12:10 Notice Type: Patient Choice Letter Notice Delivered To: Patient Relationship to Patient: Job Developer Name: Delivery Method: HAND - Hand Delivered Courtney Days: Prior Verbal Notification: Recipient Understood Notice: Yes Recipient Signature: Yes Med Rec Note Co-signed by Attending: Coverage Notice Comment: PATIENT REFUSED HH FORM SIGNED Patient Name: ZENOBIA TREJO Page [phone] at 1402 All edits/amendments must be made on the electronic document DICTATION DATE: 12/02/181401 WELDING MACHINE SETTER: ROBERTO 12/02/181401 RPT#: [id number] DC DATE: STATUS: ADM IN [facility] [address] [place] [address] END OF REPORT
--- NOTE | 2018-12-02 14:03 | NUR ---
NEW TUBING HUNG AT THIS TIME WITH NEW IV FLUIDS. NO DISTRESS. PATEINT CONTINUES TO ASK FOR AN UPDATE ON HIS CONDITION AND CONTINUES TO SAY NOBODY TELLS HIM ANYTHING. THIS HAND MOLDER REVIEWED AGAIN WITH HIM WHAT WAS TOLD TO HIM THIS MORNING AFTER QUESTIONING HIM OF WHAT HE DOES NOT REMEMBER THAT WE DISCUSSED THIS AM. CALL LIGHT PLACED WITHIN REACH. NO DISTRESS.
--- NOTE | 2018-12-02 14:10 | MORECARE ---
CASE MANAGEMENT DISCHARGE SUMMARY PATIENT: ZENOBIA TREJO UNIT: [id number] ADM DATE: 11/27/18 AGE: 58 : 64 SEX: M ROOM/BED: D.2123 AUTHOR: ROBERT WEST PHYSICIAN: REFERRING PHYSICIAN: ALENA ADORNO MD DATE OF SERVICE: 12/02/18 Discharge Plan Patient Name: ZENOBIA TREJO Facility: [facility]:[place] : 1960 Planned Disposition: Home Anticipated Discharge Date: 12/04/18 Discharge Date: Expected LOS: 7 Initial Reviewer: [email or web address] Initial Review Date: 12/02/2018 Generated: 12/02/18 3:10 pm Comments DCP- Discharge Planning Updated by [email or web address]: Heather Cotton on 12/02/18 1:[address] Patient Name: ZENOBIA TREJO Admission Status: ER Accout number: [id number] Admission Date: 11-27-2018 : 1960 Admission Diagnosis:ACUTE KIDNEY FAILURE, UNSPECIFIED Attending: ALENA ADORNO Current LOS: 5 Anticipated DC Date: 12-04-2018 Planned Disposition: Home Primary Insurance: [place]ICAID [place] Discharge Planning Comments: CM MET WITH PATIENT REGARDING D/C NEEDS AND PLANS. PATIENT STATED HE LIVES ALONE BUT HIS MOM AND SISTER WILL BE STAYING WITH HIM FOR A FEW WEEKS AT DISCHARGE. PATIENTS FAMILY WILL DRIVE HIM HOME. PATIENT STATED THERE IS ONE STEP TO ENTER HOME AND NO STAIRS INSIDE. PATIENT IS INDEPENDENT WITH HIS CARE AND HAS A WALKER, WHEELCHAIR, SHOWER CHAIR, BS COMMODE AND CANE AT HOME IF NEEDED. PATIENTS PCP IS DR. SAN AND PHARMACY IS [facility] [address] PATIENT REFUSED THE NEED OF HOME HEALTH AND FORM WAS SIGNED. CM WILL CONTINUE TO FOLLOW PATIENT WITH D/C NEEDS AND PLANS. PCP DR. MENA CROUCH AL [facility] [address] (PHARMACY) Gas Shovel Operator: Heather Cotton DCPIA - Discharge Planning Initial Assessment Updated by [email or web address]: Heather Cotton on 12/02/18 2:00 pm * Is the patient Alert and Oriented? Yes * How many steps to enter\exit or inside your home? * PCP DR. SAN * [facility] [address] * Preadmission Environment Home with Family * ADLs Independent * Equipment Bedside Commode Cane Shower Chair Walker Wheelchair * List name and contact numbers for known caregivers / representatives who currently or will assist patient after discharge: ROBBY (SISTER) [phone] KEYANA (MOM) [phone] * Verbal permission to speak to the caregivers and representatives has been obtained from the patient. Yes * Community resources currently utilized None * Additional services required to return to the preadmission environment? Yes * Can the patient safely return to the preadmission environment? Yes * Has this patient been hospitalized within the prior 30 days at any hospital? No Coverage Notice Reviewer: [email or web address] Mary Cotton Notice Issued Date-Time: 12/02/2018 12:10 Notice Type: Patient Choice Letter Notice Delivered To: Patient Relationship to Patient: Union Laborer Name: Delivery Method: HAND - Hand Delivered Courtney Days: Prior Verbal Notification: Recipient Understood Notice: Yes Recipient Signature: Yes Med Rec Note Co-signed by Attending: Coverage Notice Comment: PATIENT REFUSED HH FORM SIGNED Last DP export: 12/02/18 1:02 p Patient Name: ZENOBIA TREJO Page [phone] at 1410 All edits/amendments must be made on the electronic document DICTATION DATE: 12/02/181408 MINE ENGINEER: ROBERTO 12/02/181408 RPT#: [id number] DC DATE: STATUS: ADM IN [facility] [address] [place] [address] END OF REPORT
[2018-12-02 15:49] VITALS: BP 119/63
--- NOTE | 2018-12-02 16:08 | NUR ---
MEDICATED FOR PAIN AT THIS TIME. NO DISTRESS.
--- NOTE | 2018-12-02 16:38 | NUR ---
PATIENTS MOM AT BEDSIDE. CALL LIGHT WITHIN REACH. NO DISTRESS.
--- NOTE | 2018-12-02 17:50 | NUR ---
PATIENT OOB TO WHEELCHAIR. PATIENTS MOM PUSHING HIM AROUND HOSPITAL. NO DISTRESS UPON LEAVING UNIT.
[2018-12-02 20:01] VITALS: BP 104/64
--- NOTE | 2018-12-02 20:04 | NUR ---
INITAIL ROUNDS COMPLETED AT 191 HRS. PT RESTING WITH EYES CLOSED. RESP EVEN AND REGULAR. ASSESSMENT COMPLETED AT 194 HRS. VSS. SR PER CM HR 81. PICC TO UPPER R ARM WITH NS AT 30CC/HR. IV PATENT. LUNGS DIMINISHED IN BASES BILAT. SR UP X2, CALL LIGHT WITHIN REACH.
--- NOTE | 2018-12-02 21:29 | NUR ---
NORCO 10/325 PO GIVEN AT 2030 HRS WITH PM MEDS. PT CURRENTLY RESTING WITH EYES CLOSED. RESP EVEN AND REGULAR. SR UP X2, CALL LIGHT WITHIN REACH.
--- NOTE | 2018-12-02 23:44 | NUR ---
PT WATCHING TV; NO DISTRESS NOTED. CALL LIGHT WITHIN REACH.
[2018-12-03 00:30] VITALS: BP 92/50
--- NOTE | 2018-12-03 01:54 | NUR ---
PT RESTING WITH EYES CLOSED. RESP EVEN AND REGULAR. SR UP X2, CALL LIGHT WITHIN REACH.
[2018-12-03 03:48] VITALS: BP 103/61
--- NOTE | 2018-12-03 04:07 | NUR ---
PT RESTING WITH EYES CLOSED. RESP EVEN AND REGULAR. SR UP X2, CALL LIGHT WITHIN REACH.
[2018-12-03 05:57] LABS: HEMOGLOBIN 10.5 g/dL (13.5-17.5); LYMPHOCYTES 17.9 % (15-50); MCH 31.3 pg (26.0-34.0); MCHC 33.9 g/dL (31.0-37.0); MCV 92.3 fL (80.0-100.0); MEAN PLATELET VOLUME 8.8 fL (7.4-10.4); NEUTROPHILS 71.5 % (40-80); PLATELET COUNT 237 10x3/uL (130-400); RBC 3.36 10x6/uL (4.20-6.10); RDW 14.1 % (11.5-14.5); WBC 5.8 10x3/uL (4.8-10.8)
[2018-12-03 06:07] LABS: ANION GAP 13.8 mmol/L (8-16); CALCIUM 8.7 mg/dL (8.5-10.1); CARBON DIOXIDE 26.7 mmol/L (21.0-32.0); CREATININE - SERUM 4.4 mg/dL (0.6-1.3); POTASSIUM - SERUM 4.5 mmol/L (3.5-5.1)
--- NOTE | 2018-12-03 06:37 | NUR ---
VSS THROUGHOUT NIGHT. SR PER CM. PT STATES NORCO CONTROLS CHRONIC BACK PAIN. NEEDS MET; WILL CONTINUE TO MONITOR.
[2018-12-03 08:00] VITALS: BP 93/52
--- NOTE | 2018-12-03 08:10 | NUR ---
ASSESSMENT DONE. DENIES NEEDS.
--- NOTE | 2018-12-03 08:40 | NUR ---
I have reviewed this patient and I concur with the Shift Assessment completed by the Licensed Practical Nurse today this shift.
[2018-12-03 12:00] VITALS: BP 98/56
--- NOTE | 2018-12-03 13:07 | MORECARE ---
CASE MANAGEMENT DISCHARGE SUMMARY PATIENT: ZENOBIA TREJO UNIT: [id number] ADM DATE: 11/27/18 AGE: 58 : 64 SEX: M ROOM/BED: D.2123 AUTHOR: ROBERT WEST PHYSICIAN: REFERRING PHYSICIAN: ALENA ADORNO MD DATE OF SERVICE: 12/03/18 Discharge Plan Patient Name: ZENOBIA TREJO Facility: [facility]:[place] : 1960 Planned Disposition: Home Anticipated Discharge Date: 12/04/18 Discharge Date: Expected LOS: 7 Initial Reviewer: [id number] Initial Review Date: 12/02/2018 Generated: 12/03/18 2:07 pm Comments DCP- Discharge Planning Updated by [id number]: Heather Cotton on 12/02/18 1:[address] Patient Name: ZENOBIA TREJO Admission Status: ER Accout number: [id number] Admission Date: 11-27-2018 : 1960 Admission Diagnosis:ACUTE KIDNEY FAILURE, UNSPECIFIED Attending: ALENA ADORNO Current LOS: 5 Anticipated DC Date: 12-04-2018 Planned Disposition: Home Primary Insurance: MEDICAID [place] Discharge Planning Comments: CM MET WITH PATIENT REGARDING D/C NEEDS AND PLANS. PATIENT STATED HE LIVES ALONE BUT HIS MOM AND SISTER WILL BE STAYING WITH HIM FOR A FEW WEEKS AT DISCHARGE. PATIENTS FAMILY WILL DRIVE HIM HOME. PATIENT STATED THERE IS ONE STEP TO ENTER HOME AND NO STAIRS INSIDE. PATIENT IS INDEPENDENT WITH HIS CARE AND HAS A WALKER, WHEELCHAIR, SHOWER CHAIR, BS COMMODE AND CANE AT HOME IF NEEDED. PATIENTS PCP IS DR. SAN AND PHARMACY IS [employer] [address] PATIENT REFUSED THE NEED OF HOME HEALTH AND FORM WAS SIGNED. CM WILL CONTINUE TO FOLLOW PATIENT WITH D/C NEEDS AND PLANS. PCP DR. MENA CROUCH [facility] [employer] [address] (PHARMACY) Crime Scene Specialist: Heather Cotton DCPIA - Discharge Planning Initial Assessment Updated by [id number]: Heather Cotton on 12/02/18 2:00 pm * Is the patient Alert and Oriented? Yes * How many steps to enter\exit or inside your home? * PCP DR. SAN * [facility] [address] * Preadmission Environment Home with Family * ADLs Independent * Equipment Bedside Commode Cane Shower Chair Walker Wheelchair * List name and contact numbers for known caregivers / representatives who currently or will assist patient after discharge: ROBBY (SISTER) [phone] KEYANA (MOM) [phone] * Verbal permission to speak to the caregivers and representatives has been obtained from the patient. Yes * Community resources currently utilized None * Additional services required to return to the preadmission environment? Yes * Can the patient safely return to the preadmission environment? Yes * Has this patient been hospitalized within the prior 30 days at any hospital? No Coverage Notice Reviewer: [id number] Mary Cotton Notice Issued Date-Time: 12/02/2018 12:10 Notice Type: Patient Choice Letter Notice Delivered To: Patient Relationship to Patient: Electronic Gluing Machine Operator Name: Delivery Method: HAND - Hand Delivered Courtney Days: Prior Verbal Notification: Recipient Understood Notice: Yes Recipient Signature: Yes Med Rec Note Co-signed by Attending: Coverage Notice Comment: PATIENT REFUSED HH FORM SIGNED Reviewer: [id number] Mary Wall Notice Issued Date-Time: 12/03/2018 13:01 Notice Type: Patient Choice Letter Notice Delivered To: Patient Relationship to Patient: Electronic Gluing Machine Operator Name: Delivery Method: HAND - Hand Delivered Courtney Days: Prior Verbal Notification: Recipient Understood Notice: Yes Recipient Signature: Yes Med Rec Note Co-signed by Attending: Coverage Notice Comment: [facility] Last DP export: 12/02/18 1:10 p Patient Name: ZENOBIA TREJO Page [id number] at 1307 All edits/amendments must be made on the electronic document DICTATION DATE: 12/03/18 1306 NET SQL DEVELOPER: ROBERTO 12/03/18 1306 RPT#: [id number] DC DATE: STATUS: ADM IN [facility] [address] [place] [address] END OF REPORT
--- NOTE | 2018-12-03 13:17 | MORECARE ---
CASE MANAGEMENT DISCHARGE SUMMARY PATIENT: ZENOBIA TREJO UNIT: [id number] ADM DATE: 11/27/18 AGE: 58 : 64 SEX: M ROOM/BED: D.2123 AUTHOR: ROBERT WEST PHYSICIAN: REFERRING PHYSICIAN: ALENA ADORNO MD DATE OF SERVICE: 12/03/18 Discharge Plan Patient Name: ZENOBIA TREJO Facility: [facility]:[place] : 1960 Planned Disposition: Home Anticipated Discharge Date: 12/04/18 Discharge Date: Expected LOS: 7 Initial Reviewer: [id number] Initial Review Date: 12/02/2018 Generated: 12/03/18 2:17 pm Comments DCP- Discharge Planning Updated by [id number]: Heather Cotton on 12/02/18 1:[address] Patient Name: ZENOBIA TREJO Admission Status: ER Accout number: [id number] Admission Date: 11-27-2018 : 1960 Admission Diagnosis:ACUTE KIDNEY FAILURE, UNSPECIFIED Attending: ALENA ADORNO Current LOS: 5 Anticipated DC Date: 12-04-2018 Planned Disposition: Home Primary Insurance: MEDICAID [place] Discharge Planning Comments: CM MET WITH PATIENT REGARDING D/C NEEDS AND PLANS. PATIENT STATED HE LIVES ALONE BUT HIS MOM AND SISTER WILL BE STAYING WITH HIM FOR A FEW WEEKS AT DISCHARGE. PATIENTS FAMILY WILL DRIVE HIM HOME. PATIENT STATED THERE IS ONE STEP TO ENTER HOME AND NO STAIRS INSIDE. PATIENT IS INDEPENDENT WITH HIS CARE AND HAS A WALKER, WHEELCHAIR, SHOWER CHAIR, BS COMMODE AND CANE AT HOME IF NEEDED. PATIENTS PCP IS DR. SAN AND PHARMACY IS [employer] [address] PATIENT REFUSED THE NEED OF HOME HEALTH AND FORM WAS SIGNED. CM WILL CONTINUE TO FOLLOW PATIENT WITH D/C NEEDS AND PLANS. PCP DR. MENA CROUCH [address] [facility] [facility] [address] (PHARMACY) Roofer Assistant: Heather Cotton DCPIA - Discharge Planning Initial Assessment Updated by [id number]: Heather Cotton on 12/02/18 2:00 pm * Is the patient Alert and Oriented? Yes * How many steps to enter\exit or inside your home? * PCP DR. SAN * [facility] [address] * Preadmission Environment Home with Family * ADLs Independent * Equipment Bedside Commode Cane Shower Chair Walker Wheelchair * List name and contact numbers for known caregivers / representatives who currently or will assist patient after discharge: ROBBY (SISTER) [phone] KEYANA (MOM) [phone] * Verbal permission to speak to the caregivers and representatives has been obtained from the patient. Yes * Community resources currently utilized None * Additional services required to return to the preadmission environment? Yes * Can the patient safely return to the preadmission environment? Yes * Has this patient been hospitalized within the prior 30 days at any hospital? No External Providers External Provider: [facility] Next Contact Date: Service Request Date: Service Type: Resolution: Reviewer: Comments: Coverage Notice Reviewer: [id number] Mary Cotton Notice Issued Date-Time: 12/02/2018 12:10 Notice Type: Patient Choice Letter Notice Delivered To: Patient Relationship to Patient: Patternmaker Plaster Name: Delivery Method: HAND - Hand Delivered Courtney Days: Prior Verbal Notification: Recipient Understood Notice: Yes Recipient Signature: Yes Med Rec Note Co-signed by Attending: Coverage Notice Comment: PATIENT REFUSED HH FORM SIGNED Reviewer: [id number] Mary Wall Notice Issued Date-Time: 12/03/2018 13:01 Notice Type: Patient Choice Letter Notice Delivered To: Patient Relationship to Patient: Patternmaker Plaster Name: Delivery Method: HAND - Hand Delivered Courtney Days: Prior Verbal Notification: Recipient Understood Notice: Yes Recipient Signature: Yes Med Rec Note Co-signed by Attending: Coverage Notice Comment: [facility] Last DP export: 12/03/18 12:07 p Patient Name: ZENOBIA TREJO Page 10684 at 1317 All edits/amendments must be made on the electronic document DICTATION DATE: 12/03/18 1317 MODERN LANGUAGES PROFESSOR: ROBERTO 12/03/187 RPT#: [id number] DC DATE: STATUS: ADM IN [facility] [address] [place] [address] END OF REPORT
--- NOTE | 2018-12-03 14:10 | MORECARE ---
CASE MANAGEMENT DISCHARGE SUMMARY PATIENT: ZENOBIA TREJO UNIT: [id number] ADM DATE: 11/27/18 AGE: 58 : 64 SEX: M ROOM/BED: D.2123 AUTHOR: ROBERT WEST PHYSICIAN: REFERRING PHYSICIAN: ALENA ADORNO MD DATE OF SERVICE: 12/03/18 Discharge Plan Patient Name: ZENOBIA TREJO Facility: [facility]:[place] : 1960 Planned Disposition: Home Hlth Svc w Plan Readm Anticipated Discharge Date: 12/04/18 Discharge Date: Expected LOS: 7 Initial Reviewer: [id number] Initial Review Date: 12/02/2018 Generated: 12/03/18 3:10 pm Comments DCP- Discharge Planning Updated by [id number]: Lela Wall on 12/03/18 1:[address] Patient Name: ZENOBIA TREJO Admission Status: ER Accout number: [id number] Admission Date: 11-27-2018 : 1960 Admission Diagnosis:ACUTE KIDNEY FAILURE, UNSPECIFIED Attending: ALENA ADORNO Current LOS: 6 Anticipated DC Date: 12-04-2018 Planned Disposition: Home Hlth Svc w Plan Readm Primary Insurance: MEDICAID [place] Discharge Planning Comments: PATIENT WILL RESUME CARE WITH [facility]. CM FAXED DOCUMENTS TO BOTH PROVIDERS AND SPOKE WITH THEM. THEY WILL BOTH RESUME HIS CARE STARTING TOMORROW. [facility] PHONE NUMBER IS [phone] AND [facility] IS [phone]. Unemployment Specialist: Lela Wall DCP- Discharge Planning Updated by [id number]: Heather Cotton on 12/02/18 1:[address] Patient Name: ZENOBIA TREJO Admission Status: ER Accout number: [id number] Admission Date: 11-27-2018 : 1960 Admission Diagnosis:ACUTE KIDNEY FAILURE, UNSPECIFIED Attending: ALENA ADORNO Current LOS: 5 Anticipated DC Date: 12-04-2018 Planned Disposition: Home Primary Insurance: MEDICAID [place] Discharge Planning Comments: CM MET WITH PATIENT REGARDING D/C NEEDS AND PLANS. PATIENT STATED HE LIVES ALONE BUT HIS MOM AND SISTER WILL BE STAYING WITH HIM FOR A FEW WEEKS AT DISCHARGE. PATIENTS FAMILY WILL DRIVE HIM HOME. PATIENT STATED THERE IS ONE STEP TO ENTER HOME AND NO STAIRS INSIDE. PATIENT IS INDEPENDENT WITH HIS CARE AND HAS A WALKER, WHEELCHAIR, SHOWER CHAIR, BS COMMODE AND CANE AT HOME IF NEEDED. PATIENTS PCP IS DR. SAN AND PHARMACY IS [facility] [address]. PATIENT REFUSED THE NEED OF HOME HEALTH AND FORM WAS SIGNED. CM WILL CONTINUE TO FOLLOW PATIENT WITH D/C NEEDS AND PLANS. PCP DR. MENA CROUCH [facility] [address] (PHARMACY) Unemployment Specialist: Heather Cotton DCPIA - Discharge Planning Initial Assessment Updated by [id number]: Heather Cotton on 12/02/18 2:00 pm * Is the patient Alert and Oriented? Yes * How many steps to enter\exit or inside your home? * PCP DR. SAN * Pharmacy [facility] [employer] ON [address] * Preadmission Environment Home with Family * ADLs Independent * Equipment Bedside Commode Cane Shower Chair Walker Wheelchair * List name and contact numbers for known caregivers / representatives who currently or will assist patient after discharge: ROBBY (SISTER) [phone] KEYANA (MOM) [phone] * Verbal permission to speak to the caregivers and representatives has been obtained from the patient. Yes * Community resources currently utilized None * Additional services required to return to the preadmission environment? Yes * Can the patient safely return to the preadmission environment? Yes * Has this patient been hospitalized within the prior 30 days at any hospital? No Coverage Notice Reviewer: [id number] - Heather Cotton Notice Issued Date-Time: 12/02/2018 12:10 Notice Type: Patient Choice Letter Notice Delivered To: Patient Relationship to Patient: Grave Digger Name: Delivery Method: HAND - Hand Delivered Courtney Days: Prior Verbal Notification: Recipient Understood Notice: Yes Recipient Signature: Yes Med Rec Note Co-signed by Attending: Coverage Notice Comment: PATIENT REFUSED HH FORM SIGNED Reviewer: [id number] Mary Wall Notice Issued Date-Time: 12/03/2018 13:01 Notice Type: Patient Choice Letter Notice Delivered To: Patient Relationship to Patient: Grave Digger Name: Delivery Method: HAND - Hand Delivered Courtney Days: Prior Verbal Notification: Recipient Understood Notice: Yes Recipient Signature: Yes Med Rec Note Co-signed by Attending: Coverage Notice Comment: [facility] Last DP export: 12/03/18 12:17 p Patient Name: ZENOBIA TREJO Page [id number] at 1410 All edits/amendments must be made on the electronic document DICTATION DATE: 12/03/181409 ARTIST BLACKSMITH: ROBERTO 12/03/181409 RPT#: [id number] DC DATE: STATUS: ADM IN [facility] [address] [place] [address] END OF REPORT
--- NOTE | 2018-12-03 15:02 | MORECARE ---
CASE MANAGEMENT DISCHARGE SUMMARY PATIENT: ZENOBIA TREJO UNIT: [id number] ADM DATE: 11/27/18 AGE: 58 : 64 SEX: M ROOM/BED: D.2123 AUTHOR: ROBERT WEST PHYSICIAN: REFERRING PHYSICIAN: ALENA ADORNO MD DATE OF SERVICE: 12/03/18 Discharge Plan Patient Name: ZENOBIA TREJO Facility: [facility]:[place] : 1960 Planned Disposition: Home Hlth Svc w Plan Readm Anticipated Discharge Date: 12/04/18 Discharge Date: Expected LOS: 7 Initial Reviewer: [id number] Initial Review Date: 12/02/2018 Generated: 12/03/18 4:01 pm Comments DCP- Discharge Planning Updated by [email or web address]: Lela Wall on 12/03/18 1:[address] Patient Name: ZENOBIA TREJO Admission Status: ER Accout number: [id number] Admission Date: 11-27-2018 : 1960 Admission Diagnosis:ACUTE KIDNEY FAILURE, UNSPECIFIED Attending: ALENA ADORNO Current LOS: 6 Anticipated DC Date: 12-04-2018 Planned Disposition: Home Hlth Svc w Plan Readm Primary Insurance: MEDICAID [place] Discharge Planning Comments: PATIENT WILL RESUME CARE WITH [facility]. CM FAXED DOCUMENTS TO BOTH PROVIDERS AND SPOKE WITH THEM. THEY WILL BOTH RESUME HIS CARE STARTING TOMORROW. [facility] PHONE NUMBER IS [phone] AND [facility] IS [phone]. Nursery School Teacher: Lela Wall Appended by Lela Wall on 12/03/2018 14:54 CDT: [facility] [place] [facility] KEEPING PATIENT ANOTHER DAY DUE TO CR LEVEL. CM TO NOTIFY EXTERNAL PROVIDERS. DCP- Discharge Planning Updated by [email or web address]: Heather Cotton on 12/02/18 1:[address] Patient Name: ZENOBIA TREJO Admission Status: ER Accout number: [id number] Admission Date: 11-27-2018 : 1960 Admission Diagnosis:ACUTE KIDNEY FAILURE, UNSPECIFIED Attending: ALENA ADORNO Current LOS: 5 Anticipated DC Date: 12-04-2018 Planned Disposition: Home Primary Insurance: MEDICAID [place] Discharge Planning Comments: CM MET WITH PATIENT REGARDING D/C NEEDS AND PLANS. PATIENT STATED HE LIVES ALONE BUT HIS MOM AND SISTER WILL BE STAYING WITH HIM FOR A FEW WEEKS AT DISCHARGE. PATIENTS FAMILY WILL DRIVE HIM HOME. PATIENT STATED THERE IS ONE STEP TO ENTER HOME AND NO STAIRS INSIDE. PATIENT IS INDEPENDENT WITH HIS CARE AND HAS A WALKER, WHEELCHAIR, SHOWER CHAIR, BS COMMODE AND CANE AT HOME IF NEEDED. PATIENTS PCP IS DR. SAN AND PHARMACY IS [facility] ON [address] PATIENT REFUSED THE NEED OF HOME HEALTH AND FORM WAS SIGNED. CM WILL CONTINUE TO FOLLOW PATIENT WITH D/C NEEDS AND PLANS. PCP DR. MENA CROUCH MD [employer] [facility] ON [address] (PHARMACY) Nursery School Teacher: Heather NULL - Discharge Planning Initial Assessment Updated by [id number]: Heather Cotton on 12/02/18 2:00 pm * Is the patient Alert and Oriented? Yes * How many steps to enter\exit or inside your home? * PCP DR. SAN * Pharmacy [facility] ON [address] * Preadmission Environment Home with Family * ADLs Independent * Equipment Bedside Commode Cane Shower Chair Walker Wheelchair * List name and contact numbers for known caregivers / representatives who currently or will assist patient after discharge: ROBBY (SISTER) [phone] KEYANA (MOM) [phone] * Verbal permission to speak to the caregivers and representatives has been obtained from the patient. Yes * Community resources currently utilized None * Additional services required to return to the preadmission environment? Yes * Can the patient safely return to the preadmission environment? Yes * Has this patient been hospitalized within the prior 30 days at any hospital? No Coverage Notice Reviewer: [id number] Mary Cotton Notice Issued Date-Time: 12/02/2018 12:10 Notice Type: Patient Choice Letter Notice Delivered To: Patient Relationship to Patient: Bread Racker Name: Delivery Method: HAND - Hand Delivered Courtney Days: Prior Verbal Notification: Recipient Understood Notice: Yes Recipient Signature: Yes Med Rec Note Co-signed by Attending: Coverage Notice Comment: PATIENT REFUSED HH FORM SIGNED Reviewer: [id number] Mary Wall Notice Issued Date-Time: 12/03/2018 13:01 Notice Type: Patient Choice Letter Notice Delivered To: Patient Relationship to Patient: Bread Racker Name: Delivery Method: HAND - Hand Delivered Courtney Days: Prior Verbal Notification: Recipient Understood Notice: Yes Recipient Signature: Yes Med Rec Note Co-signed by Attending: Coverage Notice Comment: [facility] COLIN Last DP export: 12/03/18 1:10 p Patient Name: ZENOBIA TREJO Page [id number] at 1502 All edits/amendments must be made on the electronic document DICTATION DATE: 12/03/18 150 SOAPING DEPARTMENT SUPERVISOR: ROBERTO 12/03/18 1501 RPT#: [id number] DC DATE: STATUS: ADM IN [facility] [address] [place] [address] END OF REPORT
--- NOTE | 2018-12-03 16:39 | NUR ---
WITHOUT CHANGES OR DISTRESS NOTED AT THIS TIME. DENIES NEEDS.
--- NOTE | 2018-12-03 19:16 | NUR ---
RECIEVED LAYING IN BED WITH HOB ELEVATED AND TV ON. ALERT AND ORIENTED X4. UP AD JERMAINE TO B/R. PICC LINE TO LEFT UPPER ARM. TELEMETRY IN PLACE. DENIES ANY NEEDS AT THIS TIME.
[2018-12-03 20:00] VITALS: BP 102/56
[2018-12-04] VITALS: BP 98/57
[2018-12-04 04:00] VITALS: BP 100/51
[2018-12-04 05:40] LABS: BASOPHILS 0.2 % (0-2); EOSINOPHILS 2.4 % (0-7); HEMATOCRIT 28.6 % (42.0-54.0); HEMOGLOBIN 9.6 g/dL (13.5-17.5); IMMATURE GRANULOCYTES 0.2 % (0-5); LYMPHOCYTES 11.7 % (15-50); MCH 30.7 pg (26.0-34.0); MCHC 33.6 g/dL (31.0-37.0); MCV 91.4 fL (80.0-100.0); MEAN PLATELET VOLUME 9.3 fL (7.4-10.4); MONOCYTES 8.6 % (2-11); NEUTROPHILS 76.9 % (40-80); PLATELET COUNT 232 10x3/uL (130-400); RBC 3.13 10x6/uL (4.20-6.10); RDW 14.3 % (11.5-14.5); WBC 6.6 10x3/uL (4.8-10.8)
[2018-12-04 06:07] LABS: ANION GAP 15.5 mmol/L (8-16); CALCIUM 8.7 mg/dL (8.5-10.1); CARBON DIOXIDE 25.8 mmol/L (21.0-32.0); CREATININE - SERUM 3.7 mg/dL (0.6-1.3); POTASSIUM - SERUM 4.3 mmol/L (3.5-5.1)
--- NOTE | 2018-12-04 07:25 | NUR ---
ASSESSMENT DONE. DENIES NEEDS
[2018-12-04 08:57] VITALS: BP 99/45
[2018-12-04 11:59] VITALS: BP 99/57
--- NOTE | 2018-12-04 12:46 | NUR ---
I have reviewed this patient and I concur with the Shift Assessment completed by the Licensed Practical Nurse today this shift.
--- NOTE | 2018-12-04 13:06 | NUR ---
Nutrition Follow Up: Pt is no a Renal ADA diet with 25% average po intake Pt reports excellent appetite and that family is bringin in foods from outside the hospital. Pt hopes to d/c today Reviewed chart and labs RD following
--- NOTE | 2018-12-04 16:02 | MORECARE ---
CASE MANAGEMENT DISCHARGE SUMMARY PATIENT: ZENOBIA TREJO UNIT: [id number] ADM DATE: 11/27/18 AGE: 58 : 64 SEX: M ROOM/BED: D.2123 AUTHOR: ROBERT WEST PHYSICIAN: REFERRING PHYSICIAN: ALENA ADORNO MD DATE OF SERVICE: 12/04/18 Discharge Plan Patient Name: ZENOBIA TREJO Facility: [facility]:[place] : 1960 Planned Disposition: Home Hlth Svc w Plan Readm Anticipated Discharge Date: 12/04/18 Discharge Date: Expected LOS: 7 Initial Reviewer: [id number] Initial Review Date: 12/02/2018 Generated: 12/04/18 5:02 pm Comments DCP- Discharge Planning Updated by [id number]: Lela Wall on 12/04/18 2:[address] Patient Name: ZENOBIA TREJO Admission Status: ER Accout number: [id number] Admission Date: 11-27-2018 : 1960 Admission Diagnosis:ACUTE KIDNEY FAILURE, UNSPECIFIED Attending: ALENA ADORNO Current LOS: 7 Anticipated DC Date: 12-04-2018 Planned Disposition: Home Hlth Svc w Plan Readm Primary Insurance: MEDICAID [place] Discharge Planning Comments: [facility] BOTH NOTIFIED PATIENT DC'D TODAY INSTEAD OF YESTERDAY. DC DOCS SENT TO BOTH PLACES. CM TO FOLLOW AND ASSIST NEEDED. Kayak Maker: Lela Wall DCP- Discharge Planning Updated by [id number]: Lela Wall on 12/03/18 1:[address] Patient Name: ZENOBIA TREJO Admission Status: ER Accout number: [id number] Admission Date: 11-27-2018 : 1960 Admission Diagnosis:ACUTE KIDNEY FAILURE, UNSPECIFIED Attending: ALENA ADORNO Current LOS: 6 Anticipated DC Date: 12-04-2018 Planned Disposition: Home Hlth Svc w Plan Readm Primary Insurance: MEDICAID [place] Discharge Planning Comments: PATIENT WILL RESUME CARE WITH [facility]. CM FAXED DOCUMENTS TO BOTH PROVIDERS AND SPOKE WITH THEM. THEY WILL BOTH RESUME HIS CARE STARTING TOMORROW. [facility] PHONE NUMBER IS [phone] AND [facility] IS [phone]. Kayak Maker: Lela Wall Appended by Lela Wall on 12/03/2018 14:54 CDT: [facility] [place] [facility] KEEPING PATIENT ANOTHER DAY DUE TO CR LEVEL. CM TO NOTIFY EXTERNAL PROVIDERS. DCP- Discharge Planning Updated by [id number]: Heather Cotton on 12/02/18 1:[address] Patient Name: ZENOBIA TREJO Admission Status: ER Accout number: [id number] Admission Date: 11-27-2018 : 1960 Admission Diagnosis:ACUTE KIDNEY FAILURE, UNSPECIFIED Attending: ALENA ADORNO Current LOS: 5 Anticipated DC Date: 12-04-2018 Planned Disposition: Home Primary Insurance: MEDICAID [place] Discharge Planning Comments: CM MET WITH PATIENT REGARDING D/C NEEDS AND PLANS. PATIENT STATED HE LIVES ALONE BUT HIS MOM AND SISTER WILL BE STAYING WITH HIM FOR A FEW WEEKS AT DISCHARGE. PATIENTS FAMILY WILL DRIVE HIM HOME. PATIENT STATED THERE IS ONE STEP TO ENTER HOME AND NO STAIRS INSIDE. PATIENT IS INDEPENDENT WITH HIS CARE AND HAS A WALKER, WHEELCHAIR, SHOWER CHAIR, BS COMMODE AND CANE AT HOME IF NEEDED. PATIENTS PCP IS DR. SAN AND PHARMACY IS [facility] [address] PATIENT REFUSED THE NEED OF HOME HEALTH AND FORM WAS SIGNED. CM WILL CONTINUE TO FOLLOW PATIENT WITH D/C NEEDS AND PLANS. PCP DR. MENA CROUCH [employer] [facility] [address] (PHARMACY) Kayak Maker: Heather Cotton DCPIA - Discharge Planning Initial Assessment Updated by [id number]: Heather Cotton on 12/02/18 2:00 pm * Is the patient Alert and Oriented? Yes * How many steps to enter\exit or inside your home? * PCP DR. SAN * Pharmacy [facility] [address] * Preadmission Environment Home with Family * ADLs Independent * Equipment Bedside Commode Cane Shower Chair Walker Wheelchair * List name and contact numbers for known caregivers / representatives who currently or will assist patient after discharge: ROBBY (SISTER) [phone] KEYANA (MOM) [phone] * Verbal permission to speak to the caregivers and representatives has been obtained from the patient. Yes * Community resources currently utilized None * Additional services required to return to the preadmission environment? Yes * Can the patient safely return to the preadmission environment? Yes * Has this patient been hospitalized within the prior 30 days at any hospital? No Coverage Notice Reviewer: [id number] Mary Cotton Notice Issued Date-Time: 12/02/2018 12:10 Notice Type: Patient Choice Letter Notice Delivered To: Patient Relationship to Patient: Mixer Machine Feeder Name: Delivery Method: HAND - Hand Delivered Courtney Days: Prior Verbal Notification: Recipient Understood Notice: Yes Recipient Signature: Yes Med Rec Note Co-signed by Attending: Coverage Notice Comment: PATIENT REFUSED HH FORM SIGNED Reviewer: [id number] Mary Wall Notice Issued Date-Time: 12/03/2018 13:01 Notice Type: Patient Choice Letter Notice Delivered To: Patient Relationship to Patient: Mixer Machine Feeder Name: Delivery Method: HAND - Hand Delivered Courtney Days: Prior Verbal Notification: Recipient Understood Notice: Yes Recipient Signature: Yes Med Rec Note Co-signed by Attending: Coverage Notice Comment: [facility] Last DP export: 12/03/18 2:01 p Patient Name: ZENOBIA TREJO Page [id number] at 1602 All edits/amendments must be made on the electronic document DICTATION DATE: 12/04/18 160 SUPERVISOR COIL WINDING: ROBERTO 12/04/18 160 RPT#: [id number] DC DATE: STATUS: ADM IN [facility] [address] [place] [address] END OF REPORT
[2018-12-04 16:11] VITALS: BP 105/65
--- NOTE | 2018-12-04 16:15 | NUR ---
DC GIVEN TO PT
--- NOTE | 2018-12-04 16:34 | NUR ---
DC HOME PER PERSONAL CAR
--- NOTE | 2018-12-05 08:37 | MORECARE ---
CASE MANAGEMENT DISCHARGE SUMMARY PATIENT: ZENOBIA TREJO UNIT: [id number] ADM DATE: 11/27/18 AGE: 58 : 64 SEX: M ROOM/BED: D.2123 AUTHOR: ROBERT WEST PHYSICIAN: REFERRING PHYSICIAN: ALENA ADORNO MD DATE OF SERVICE: 12/05/18 Discharge Plan Patient Name: ZENOBIA TREJO Facility: [facility]:[place] : 1960 Planned Disposition: Home with Home Health and Infusion Serv Anticipated Discharge Date: 12/04/18 Discharge Date: 12/04/2018 Expected LOS: 7 Initial Reviewer: [email or web address] Initial Review Date: 12/02/2018 Generated: 12/05/18 9:37 am Comments DCP- Discharge Planning Updated by [id number]: Lela Wall on 12/04/18 2:[address] Patient Name: ZENOBIA TREJO Admission Status: ER Accout number: [id number] Admission Date: 11-27-2018 : 1960 Admission Diagnosis:ACUTE KIDNEY FAILURE, UNSPECIFIED Attending: ALEAN ADORNO Current LOS: 7 Anticipated DC Date: 12-04-2018 Planned Disposition: Home Hlth Svc w Plan Readm Primary Insurance: MEDICAID [place] Discharge Planning Comments: [facility] BOTH NOTIFIED PATIENT DC'D TODAY INSTEAD OF YESTERDAY. DC DOCS SENT TO BOTH PLACES. CM TO FOLLOW AND ASSIST NEEDED. Casing Puller: Lela Wall DCP- Discharge Planning Updated by [email or web address]: Lela Wall on 12/03/18 1:[address] Patient Name: ZENOBIA TREJO Admission Status: ER Accout number: [id number] Admission Date: 11-27-2018 : 1960 Admission Diagnosis:ACUTE KIDNEY FAILURE, UNSPECIFIED Attending: ALENA ADORNO Current LOS: 6 Anticipated DC Date: 12-04-2018 Planned Disposition: Home Hlth Svc w Plan Readm Primary Insurance: MEDICAID [place] Discharge Planning Comments: PATIENT WILL RESUME CARE WITH [facility]. CM FAXED DOCUMENTS TO BOTH PROVIDERS AND SPOKE WITH THEM. THEY WILL BOTH RESUME HIS CARE STARTING TOMORROW. [facility] PHONE NUMBER IS [phone] AND [facility] PEREZ IS [phone]. Casing Puller: Lelawillard Wall Appended by Lela Wall on 12/03/2018 14:54 CDT: MCKAY MOTAN STATES KEEPING PATIENT ANOTHER DAY DUE TO CR LEVEL. CM TO NOTIFY EXTERNAL PROVIDERS. DCP- Discharge Planning Updated by [id number]: Heather Cotton on 12/02/18 1:[address] Patient Name: ZENOBIA TREJO Admission Status: ER Accout number: [id number] Admission Date: 11-27-2018 : 1960 Admission Diagnosis:ACUTE KIDNEY FAILURE, UNSPECIFIED Attending: ALENA ADORNO Current LOS: 5 Anticipated DC Date: 12-04-2018 Planned Disposition: Home Primary Insurance: MEDICAID [place] Discharge Planning Comments: CM MET WITH PATIENT REGARDING D/C NEEDS AND PLANS. PATIENT STATED HE LIVES ALONE BUT HIS MOM AND SISTER WILL BE STAYING WITH HIM FOR A FEW WEEKS AT DISCHARGE. PATIENTS FAMILY WILL DRIVE HIM HOME. PATIENT STATED THERE IS ONE STEP TO ENTER HOME AND NO STAIRS INSIDE. PATIENT IS INDEPENDENT WITH HIS CARE AND HAS A WALKER, WHEELCHAIR, SHOWER CHAIR, BS COMMODE AND CANE AT HOME IF NEEDED. PATIENTS PCP IS DR. SAN AND PHARMACY IS [facility] ON [address] PATIENT REFUSED THE NEED OF HOME HEALTH AND FORM WAS SIGNED. CM WILL CONTINUE TO FOLLOW PATIENT WITH D/C NEEDS AND PLANS. PCP DR. MENA CROUCH MA [facility] ON [address] (PHARMACY) Casing Puller: Heather Cotton DCPIA - Discharge Planning Initial Assessment Updated by [email or web address]: Heather Cotton on 12/02/18 2:00 pm * Is the patient Alert and Oriented? Yes * How many steps to enter\exit or inside your home? * PCP DR. SAN * Pharmacy [facility] [address] * Preadmission Environment Home with Family * ADLs Independent * Equipment Bedside Commode Cane Shower Chair Walker Wheelchair * List name and contact numbers for known caregivers / representatives who currently or will assist patient after discharge: ROBBY (SISTER) [phone] KEYANA (MOM) [phone] * Verbal permission to speak to the caregivers and representatives has been obtained from the patient. Yes * Community resources currently utilized None * Additional services required to return to the preadmission environment? Yes * Can the patient safely return to the preadmission environment? Yes * Has this patient been hospitalized within the prior 30 days at any hospital? No Coverage Notice Reviewer: [id number] Mary Cotton Notice Issued Date-Time: 12/02/2018 12:10 Notice Type: Patient Choice Letter Notice Delivered To: Patient Relationship to Patient: Internal Medicine Specialist Name: Delivery Method: HAND - Hand Delivered Courtney Days: Prior Verbal Notification: Recipient Understood Notice: Yes Recipient Signature: Yes Med Rec Note Co-signed by Attending: Coverage Notice Comment: PATIENT REFUSED HH FORM SIGNED Reviewer: [id number] Mary Wall Notice Issued Date-Time: 12/03/2018 13:01 Notice Type: Patient Choice Letter Notice Delivered To: Patient Relationship to Patient: Internal Medicine Specialist Name: Delivery Method: HAND - Hand Delivered Courtney Days: Prior Verbal Notification: Recipient Understood Notice: Yes Recipient Signature: Yes Med Rec Note Co-signed by Attending: Coverage Notice Comment: [facility] Last DP export: 12/04/18 3:02 p Patient Name: ZENOBIA TREJO Page [id number] at 0837 All edits/amendments must be made on the electronic document DICTATION DATE: 12/05/18 0837 POLITICAL ANTHROPOLOGIST: ROBERTO 12/05/18 0837 RPT#: [id number] DC DATE:12/04/18 STATUS: DIS IN [facility] [address] [place] [address] END OF REPORT
== END 2018-12-04 16:34 | disposition home health service (06) | DRG 289 ==
LOC: D.ER 18:51 → D.M2 11-27 01:41
PROVIDERS: Family Medicine; Internal Medicine Nephrology; Student in an Organized Health Care Education/Training Program; ADMIT Internal Medicine Nephrology; ATTEND Internal Medicine Nephrology
DX: I33.0 Acute and subacute infective endocarditis (principal); N17.9 Acute kidney failure, unspecified; E87.5 Hyperkalemia; B95.2 Enterococcus as the cause of diseases classified elsewhere; B96.1 Klebsiella pneumoniae [K. pneumoniae] as the cause of diseases classified elsewhere; I10 Essential (primary) hypertension; K21.9 Gastro-esophageal reflux disease without esophagitis; E87.6 Hypokalemia; D64.9 Anemia, unspecified; F17.210 Nicotine dependence, cigarettes, uncomplicated; T36.8X5A Adverse effect of other systemic antibiotics, initial encounter

== ENCOUNTER → 2018-12-06 12:08 | Outpatient (CLI) | payer MEDICAID ==
[2018-11-28 13:07] VITALS: BMI 29.0
[~2018-12-06 12:08] MED LIST changes: +NORVASC10 MG PO
[2018-12-06 13:04] LABS: ANION GAP 13.9 mmol/L (8-16); CALCIUM 9.2 mg/dL (8.5-10.1); CARBON DIOXIDE 25.7 mmol/L (21.0-32.0); CREATININE - SERUM 3.1 mg/dL (0.6-1.3); POTASSIUM - SERUM 4.6 mmol/L (3.5-5.1)
== END | disposition home or self-care (01) ==
LOC: D.LABREF 12:08
PROVIDERS: ATTEND Emergency Medicine
DX: I38 Endocarditis, valve unspecified (principal)

== ENCOUNTER → 2018-12-10 15:25 | Outpatient (CLI) | payer MEDICAID ==
[2018-11-28 13:07] VITALS: BMI 29.0
[2018-12-10 16:38] LABS: BASOPHILS 0.5 % (0-2); EOSINOPHILS 1.4 % (0-7); HEMATOCRIT 31.1 % (42.0-54.0); HEMOGLOBIN 10.6 g/dL (13.5-17.5); IMMATURE GRANULOCYTES 0.2 % (0-5); LYMPHOCYTES 16.6 % (15-50); MCH 30.7 pg (26.0-34.0); MCHC 34.1 g/dL (31.0-37.0); MCV 90.1 fL (80.0-100.0); MEAN PLATELET VOLUME 9.4 fL (7.4-10.4); MONOCYTES 7.8 % (2-11); NEUTROPHILS 73.5 % (40-80); PLATELET COUNT 258 10x3/uL (130-400); RBC 3.45 10x6/uL (4.20-6.10); RDW 14.4 % (11.5-14.5); WBC 6.3 10x3/uL (4.8-10.8)
[2018-12-10 16:52] LABS: ANION GAP 15.9 mmol/L (8-16); CALCIUM 8.8 mg/dL (8.5-10.1); CREATININE - SERUM 2.3 mg/dL (0.6-1.3); POTASSIUM - SERUM 3.9 mmol/L (3.5-5.1)
== END | disposition home or self-care (01) ==
LOC: D.LABREF 15:25
PROVIDERS: ATTEND Student in an Organized Health Care Education/Training Program
DX: I38 Endocarditis, valve unspecified (principal)

== ENCOUNTER → 2018-12-17 14:05 | Outpatient (CLI) | payer MEDICAID ==
[2018-11-28 13:07] VITALS: BMI 29.0
[2018-12-17 14:39] LABS: BASOPHILS 0.3 % (0-2); EOSINOPHILS 2.6 % (0-7); HEMATOCRIT 30.8 % (42.0-54.0); HEMOGLOBIN 10.2 g/dL (13.5-17.5); LYMPHOCYTES 31.8 % (15-50); MCH 29.9 pg (26.0-34.0); MCHC 33.1 g/dL (31.0-37.0); MCV 90.3 fL (80.0-100.0); MEAN PLATELET VOLUME 9.9 fL (7.4-10.4); MONOCYTES 16.3 % (2-11); RBC 3.41 10x6/uL (4.20-6.10); RDW 15.3 % (11.5-14.5); WBC 3.5 10x3/uL (4.8-10.8)
[2018-12-17 14:43] LABS: PLATELET COUNT 165 10x3/uL (130-400)
[2018-12-17 15:02] LABS: ANION GAP 15.5 mmol/L (8-16); CALCIUM 7.9 mg/dL (8.5-10.1); CARBON DIOXIDE 24.6 mmol/L (21.0-32.0); CREATININE - SERUM 1.7 mg/dL (0.6-1.3); POTASSIUM - SERUM 4.1 mmol/L (3.5-5.1)
== END | disposition home or self-care (01) ==
LOC: D.LABREF 14:05
PROVIDERS: ATTEND Student in an Organized Health Care Education/Training Program
DX: I38 Endocarditis, valve unspecified (principal)

== ENCOUNTER → 2019-01-04 09:19 | Outpatient (CLI) | payer MEDICAID ==
[2018-11-28 13:07] VITALS: BMI 29.0
== END | disposition home or self-care (01) ==
LOC: D.ECHO 09:00
PROVIDERS: ATTEND Student in an Organized Health Care Education/Training Program
DX: I33.0 Acute and subacute infective endocarditis (principal)

== ENCOUNTER 2019-03-11 18:54 | Inpatient (IN) | payer MEDICAID ==
[~2019-03-11] VITALS: Ht 188 cm; Wt 82.1 kg
[2019-03-11] MEDS ORDERED: OMEPRAZOLE40 MG PO (18:58)
[2019-03-11] MEDS ORDERED: ALTACE10 MG PO (18:59)
[2019-03-11 19:25] VITALS: BP 122/83
[2019-03-11 19:43] LABS: BASOPHILS 0.4 % (0-2); EOSINOPHILS 0.6 % (0-7); HEMOGLOBIN 12.6 g/dL (13.5-17.5); IMMATURE GRANULOCYTES 0.4 % (0-5); LYMPHOCYTES 26.9 % (15-50); MCH 29.6 pg (26.0-34.0); MCV 82.2 fL (80.0-100.0); MEAN PLATELET VOLUME 11.3 fL (7.4-10.4); MONOCYTES 9.6 % (2-11); NEUTROPHILS 62.1 % (40-80); PLATELET COUNT 104 10x3/uL (130-400); RBC 4.26 10x6/uL (4.20-6.10); RDW 13.9 % (11.5-14.5); WBC 5.1 10x3/uL (4.8-10.8)
[2019-03-11 19:45] LABS: KETONE - SERUM NEGATIVE (NEGATIVE)
--- NOTE | 2019-03-11 20:00 | NUR ---
URINE SPECIMEN TAKEN TO LAB
[2019-03-11 20:03] LABS: ALBUMIN 3.7 g/dL (3.4-5.0); ALKALINE PHOSPHATASE 145 U/L (46-116); ALT (SGPT) 15 U/L (10-68); AMYLASE - SERUM 22 U/L (25-115); BILIRUBIN - TOTAL 0.31 mg/dL (0.2-1.3); CALCIUM 9.2 mg/dL (8.5-10.1); CARBON DIOXIDE 18.8 mmol/L (21.0-32.0); CHLORIDE - SERUM 88 mmol/L (98-107); CKMB 0.5 U/L (0.0-3.6); CREATINE KINASE 20 UL (21-232); CREATININE - SERUM 1.4 mg/dL (0.6-1.3); LIPASE 227 U/L (73-393); MAGNESIUM - SERUM 1.6 mg/dL (1.8-2.4); POTASSIUM - SERUM 3.8 mmol/L (3.5-5.1); PROTEIN - SERUM 7.4 g/dL (6.4-8.2); SODIUM 125 mmol/L (136-145); TROPONIN-I < 0.017 ng/mL (0.000-0.060); UREA NITROGEN 20 mg/dL (7-18); eGFR NON AFRICAN AMERICAN 55 mL/min (90-120)
[2019-03-11 20:04] LABS: CALC OSMOLALITY 286 mosm/kg (275-300); GLUCOSE 682 mg/dL (74-106)
--- NOTE | 2019-03-11 20:24 | NUR ---
FSBS 589
[2019-03-11 20:31] LABS: APPEARANCE CLEAR (CLEAR); BILIRUBIN NEGATIVE (NEGATIVE); COLOR STRAW (YELLOW); GLUCOSE 500 mg/dL (NEGATIVE); KETONE MODERATE mg/dL (NEGATIVE); NITRITE NEGATIVE (NEGATIVE); PROTEIN NEGATIVE (NEGATIVE); UROBILINOGEN NORMAL (NORMAL)
[2019-03-11 21:44] VITALS: BP 106/58
--- NOTE | 2019-03-11 23:24 | NUR ---
BELINDA RETURNED CALL, REPORTED BS AT 2229 WAS 525 AND 20 UNITS REGULAR INSULIN WAS GIVEN PER INTERMEDIATE SS ORDERED, ORDER RECIEVED TO RECHECK AT 0100 AND IF GOING UP CAN CALL HER BACK, OTHERWISE RECHECK AND TREAT SCHEDULED
[2019-03-11 23:28] VITALS: BP 106/58; BMI 23.3
[2019-03-12 01:11] VITALS: BP 96/44
[2019-03-12 05:09] LABS: BASOPHILS 0.6 % (0-2); HEMATOCRIT 32.1 % (42.0-54.0); HEMOGLOBIN 11.5 g/dL (13.5-17.5); LYMPHOCYTES 39.6 % (15-50); MCH 29.3 pg (26.0-34.0); MCHC 35.8 g/dL (31.0-37.0); MCV 81.7 fL (80.0-100.0); MONOCYTES 8.5 % (2-11); NEUTROPHILS 49.3 % (40-80); PLATELET COUNT 101 10x3/uL (130-400); RBC 3.93 10x6/uL (4.20-6.10); RDW 13.6 % (11.5-14.5)
[2019-03-12 05:15] LABS: % SATURATION 18 % (15-55); IRON 33 ug/dl (35-150); TOTAL IRON BIND CAPACITY 182 ug/dl (260-445); UNSAT IRON BIND CAPACITY 149 ug/dl (150-375)
[2019-03-12 05:19] LABS: WBC 3.5 10x3/uL (4.8-10.8)
[2019-03-12 05:42] LABS: ALBUMIN 3.1 g/dL (3.4-5.0); BILIRUBIN - TOTAL 0.22 mg/dL (0.2-1.3); CALCIUM 8.7 mg/dL (8.5-10.1); CREATININE - SERUM 1.1 mg/dL (0.6-1.3); MAGNESIUM - SERUM 1.6 mg/dL (1.8-2.4); PROTEIN - SERUM 6.2 g/dL (6.4-8.2)
[2019-03-12 06:12] LABS: CARBON DIOXIDE 26.1 mmol/L (21.0-32.0); POTASSIUM - SERUM 3.1 mmol/L (3.5-5.1)
[2019-03-12 06:23] VITALS: BP 101/60
--- NOTE | 2019-03-12 07:51 | NUR ---
PT IS RESTING IN BED WITH EYES OPEN. RESPIRATIONS ARE EVEN AND UNLABORED. PT DENIES PRESENCE OF PAIN. PT C/O FREQUEST URINATION AND THIRST. PT EDUCATED ON S/S OF DIABETES. PT VERBALIZES UNDERSTANDING. PT DENIES PRESENCE OF PAIN/N/V AT THIS TIME. FRESH ICE WATER GIVEN TO PT. PT DENIES FURTHER NEEDS. AT THIS TIME. BED IS IN THE LOWEST POSITION. CALL LIGHT AND BEDSIDE TABLE ARE WITHIN REACH. SIDE RAILS X 2. WILL CONT TO MONITOR.
[2019-03-12 08:56] VITALS: BP 107/54
--- NOTE | 2019-03-12 11:30 | NUR ---
PT GIVEN WRITTEN EDUCATION PERTAINING TO DIABETES, DIABETIC DIET AND MANAGEMENT OF DIABETES. PT IS THANKFUL FOR EDUCATION. PT DENIES FURTHER QUESTIONS/CONCERNS AT THIS TIME. WILL INFORM UNIVERSITY COUNSELOR OF NEED FOR DIABETIC DIET EDUCATION.
[2019-03-12 12:03] VITALS: BP 105/56
--- NOTE | 2019-03-12 12:44 | NUR ---
PT MAKES STATEMENT TO "GO OUTSIDE". PT QUESTIONED ON INTENT TO SMOKE. PT REPORTS THAT HE WILL SMOKE A CIGARETTE WHILE OUTSIDE. PT EDUCATED ON HOSPITAL POLICY FOR SMOKING AND NICOTINE PATCH THAT WAS APPLIED THIS AM. PT VERBALIZES UNDERSTANDING AND REMOVES NICOTINE PATCH AT THIS TIME.
[2019-03-12 12:58] VITALS: Ht 188 cm; Wt 82.1 kg
[2019-03-12 16:36] VITALS: BP 108/55
--- NOTE | 2019-03-12 18:50 | NUR ---
UPON ENTERING PT ROOM. PT MOTHER IS AT BEDSIDE. PT WITH JULIO CHICKEN. I/O SHEET SHOWS PT CONSUMED 100% OF DINNER TRAY. FOOD SEEN IS FRIED CHICKEN, RICE AND A BISCUIT. PT EDUCATED ON APPROPRIATE DIABETIC DIET. PT REMINDED TO REVIEW EDUCATION HANDOUTS FOR DIABETIC DIET. PT AND PT MOTHER VERBALIZE UNDERSTANDING.
--- NOTE | 2019-03-12 19:45 | NUR ---
RECEIVED PT. PT BEING PUSHED VIA WC BY HIS MOM. DENIES NEEDS AT THIS TIME. NO C.O OF PAIN OR DISCOMFORT. NO S/S OF DISTRESS NOTED AT THIS TIME. WILL CPOC.
--- NOTE | 2019-03-12 22:00 | NUR ---
PT BLOOD SUGAR 409. MULTIPLE SNACKS, CARTONS OF MILK, AND SWEET TEA NOTED ON BEDSIDE TABLE. EDUCATED PT ON THE IMPORTANCE OF NO CARBS OR SUGAR TO HELP WITH MAINTAINING A LOWER BLODD SUGAR. PT REMAINS PASSIVE AND UNINTERESTED WITH DIABETIC EDUCATION. WILL CPOC.
[2019-03-12 22:12] VITALS: BP 114/61
[2019-03-13 01:00] VITALS: BP 120/66
[2019-03-13 06:26] LABS: BASOPHILS 0.6 % (0-2); EOSINOPHILS 1.9 % (0-7); HEMOGLOBIN 11.7 g/dL (13.5-17.5); IMMATURE GRANULOCYTES 0.3 % (0-5); LYMPHOCYTES 41.2 % (15-50); MCH 29.5 pg (26.0-34.0); MCHC 35.5 g/dL (31.0-37.0); MCV 83.1 fL (80.0-100.0); MEAN PLATELET VOLUME 10.8 fL (7.4-10.4); MONOCYTES 11.6 % (2-11); NEUTROPHILS 44.4 % (40-80); PLATELET COUNT 82 10x3/uL (130-400); RBC 3.97 10x6/uL (4.20-6.10); WBC 3.2 10x3/uL (4.8-10.8)
[2019-03-13 06:35] VITALS: BP 110/57
[2019-03-13 06:44] LABS: ALKALINE PHOSPHATASE 105 U/L (46-116); ALT (SGPT) 9 U/L (10-68); BILIRUBIN - TOTAL 0.23 mg/dL (0.2-1.3); CALC OSMOLALITY 287 mosm/kg (275-300); CALCIUM 8.8 mg/dL (8.5-10.1); CARBON DIOXIDE 25.3 mmol/L (21.0-32.0); CHLORIDE - SERUM 105 mmol/L (98-107); GLUCOSE 253 mg/dL (74-106); POTASSIUM - SERUM 3.3 mmol/L (3.5-5.1); PROTEIN - SERUM 6.2 g/dL (6.4-8.2); SODIUM 139 mmol/L (136-145); UREA NITROGEN 15 mg/dL (7-18); eGFR NON AFRICAN AMERICAN 82 mL/min (90-120)
--- NOTE | 2019-03-13 07:28 | NUR ---
PT IS RESTING IN BED WITH EYES CLOSED. RESPIRATIONS ARE EVEN AND UNLABORED. PT IS EASILY AROUSED WITH VERBAL STIMULATION. PT AAO X 4. PT REMINDED OF NEED FOR STOOL SAMPLE. PT VERBALIZES UNDERSTANDING AND DENIES URGE TO DEFECATE AT THIS TIME. PT TO NOTIFY NURSE WHEN SAMPLE IS PROVIDED. PT DENIES PRESENCE OF PAIN AT THIS TIME. PT DENIES PRESENCE OF N/V. PT REFSUES SCDS. PT DENIES FURTHER NEEDS. BED IS IN THE LOWEST POSITION. CALL LIGHT AND BEDSIDE TABLE ARE WITHIN REACH. SIDE RAILS X 2. WILL CONT TO MONITOR.
[2019-03-13 09:11] VITALS: BP 105/64
[2019-03-13 09:15] LABS: PLATELET ESTIMATE DECREASED
[2019-03-13 09:16] LABS: HYPOCHROMASIA OCC; ROULEAUX OCC
[2019-03-13 12:25] VITALS: BP 110/67
[2019-03-13 16:40] VITALS: BP 136/70
--- NOTE | 2019-03-13 20:45 | NUR ---
AWAKE,ALERT.COMPLAINTS OF BACK PAIN. MORPHINE 4MG GIVEN IV PER ORDERS. IV INFSUING TO RFA WITHOUT REDNESS OR EDEMA NOTED. CL IN REACH
[2019-03-13 22:05] VITALS: BP 118/65
[2019-03-14 01:22] VITALS: BP 109/62
--- NOTE | 2019-03-14 03:31 | NUR ---
I have reviewed this patient and I concur with the Shift Assessment completed by the Licensed Practical Nurse today this shift.
[2019-03-14 05:20] LABS: BASOPHILS 0.3 % (0-2); EOSINOPHILS 1.8 % (0-7); HEMATOCRIT 34.5 % (42.0-54.0); LYMPHOCYTES 43.7 % (15-50); MCH 29.2 pg (26.0-34.0); MCHC 34.8 g/dL (31.0-37.0); MCV 83.9 fL (80.0-100.0); MEAN PLATELET VOLUME 10.2 fL (7.4-10.4); MONOCYTES 7.1 % (2-11); NEUTROPHILS 47.1 % (40-80); PLATELET COUNT 82 10x3/uL (130-400); RBC 4.11 10x6/uL (4.20-6.10); RDW 14.2 % (11.5-14.5); WBC 3.8 10x3/uL (4.8-10.8)
[2019-03-14 05:42] LABS: ALBUMIN 2.9 g/dL (3.4-5.0); ANION GAP 14.9 mmol/L (8-16); BILIRUBIN - TOTAL 0.29 mg/dL (0.2-1.3); CALCIUM 8.7 mg/dL (8.5-10.1); CREATININE - SERUM 1.1 mg/dL (0.6-1.3); MAGNESIUM - SERUM 1.6 mg/dL (1.8-2.4); POTASSIUM - SERUM 3.9 mmol/L (3.5-5.1); PROTEIN - SERUM 6.1 g/dL (6.4-8.2)
[2019-03-14 05:49] VITALS: BP 100/55
[2019-03-14 08:59] VITALS: BP 98/53
[2019-03-14] MEDS ORDERED: HUMULIN R100 U/ML SC (11:21)
[2019-03-14] MEDS ORDERED: LANTUS SOL100 UNIT/1 SC (11:21)
--- NOTE | 2019-03-14 12:32 | NUR ---
PATIENT EDUCATED ON HOW TO DO A FINGERSTICK AT THIS TIME. DEMONSTRATED BACK WITH NO PROBLEMS OR QUESTIONS. ALSO EDUCATED PATIENT ON HOW TO DRAW INSULIN UP FROM AN INSULIN VIAL WITH AN INSULIN SYRINGE. PATIENT GAVE ON INSULIN INJECTION AT THIS TIME. EXPLAINED INJECTION SITES TO PATIENT. VERBALIZED UNDERSTANDING. NO QUESTIONS AT THIS TIME. EXPLAINED HOW TO USE LANTUS PEN. NO QUESTIONS ON THAT AT THIS TIME WELL. AWAITING DC PAPERS FOR DC. CALL LIGHT WITHIN REACH.
--- NOTE | 2019-03-14 12:36 | MORECARE ---
CASE MANAGEMENT DISCHARGE SUMMARY PATIENT: ZENOBIA TREJO UNIT: [id number] ADM DATE: 03/11/19 AGE: 59 : 64 SEX: M ROOM/BED: D.2225 AUTHOR: BRETT,DOC PHYSICIAN: REFERRING PHYSICIAN: ALENA ADORNO MD DATE OF SERVICE: 03/14/19 Discharge Plan Patient Name: ZENOBIA TREJO Facility: [facility]:[place] : 1960 Planned Disposition: Home Health Service Anticipated Discharge Date: Discharge Date: Expected LOS: Initial Reviewer: [email or web address] Initial Review Date: 03/11/2019 Generated: 03/14/19 1:36 pm Comments DCP- Discharge Planning Updated by [email or web address]: Lesly Dumont on 03/14/19 11:[address] Patient Name: ZENOBIA TREJO Admission Status: ER Accout number: [id number] Admission Date: 03-11-2019 : 1960 Admission Diagnosis: Attending: ALENA ADORNO Current LOS: 3 Anticipated DC Date: Planned Disposition: Home Health Service Primary Insurance: MEDICAID [place] Discharge Planning Comments: CM met with patient to complete initial dc planning assessment. CM educated patient on the CM role and verbal consent given by patient to complete assessment. Patient lives at home with his mother where he is independent with his care. At discharge patient plans to return home and feels this is a safe discharge. His mom with be his delivery route driver home. CM discussed availability of home health, rehab services, and medical equipment. He will need home health for diabetic education. He is waiting to talk to his mom to see what company he would like to use, then CM will send referral. He was given a script for a glucometer. Patient denied known discharge needs at this time. CM will continue to follow and will assist as needed with dc plans/needs. Geospatial Information Scientist: Lesly Dumont DCPIA - Discharge Planning Initial Assessment Updated by [email or web address]: Lesly Dumont on 03/14/19 12:32 pm * Is the patient Alert and Oriented? Yes * How many steps to enter\exit or inside your home? * PCP MENA * Pharmacy [facility] * Preadmission Environment Home with Family * ADLs Independent * Equipment None * List name and contact numbers for known caregivers / representatives who currently or will assist patient after discharge: KEYANA [phone] * Verbal permission to speak to the caregivers and representatives has been obtained from the patient. N/A * Additional services required to return to the preadmission environment? Yes * Can the patient safely return to the preadmission environment? Yes * Has this patient been hospitalized within the prior 30 days at any hospital? No Patient Name: ZENOBIA TREJO Page [phone] at 1236 All edits/amendments must be made on the electronic document DICTATION DATE: 03/14/19 1236 MARKETING BUSINESS ANALYST: ROBERTO 03/14/19 1236 RPT#: [id number] DC DATE: STATUS: ADM IN [facility] [address] [place] [address] END OF REPORT
[2019-03-14 13:25] VITALS: BP 109/56
--- NOTE | 2019-03-14 14:31 | MORECARE ---
CASE MANAGEMENT DISCHARGE SUMMARY PATIENT: ZENOBIA TREJO UNIT: [id number] ADM DATE: 03/11/19 AGE: 59 : 64 SEX: M ROOM/BED: D.2225 AUTHOR: ROBERT WEST PHYSICIAN: REFERRING PHYSICIAN: ALENA ADORNO MD DATE OF SERVICE: 03/14/19 Discharge Plan Patient Name: ZENOBIA TREJO Facility: [facility]:[place] : 1960 Planned Disposition: Home Health Service Anticipated Discharge Date: Discharge Date: Expected LOS: Initial Reviewer: [email or web address] Initial Review Date: 03/11/2019 Generated: 03/14/19 3:30 pm Comments DCP- Discharge Planning Updated by [email or web address]: Lesly Dumont on 03/14/19 1:[address] PATIENT HAS CHOOSEN [facility], MARK SIGNED AND PLACED IN CHART. RAY WITH [facility] NOTIFIED DCP- Discharge Planning Updated by [email or web address]: Lesly Dumont on 03/14/19 11:[address] Patient Name: ZENOBIA TREJO Admission Status: ER Accout number: [id number] Admission Date: 03-11-2019 : 1960 Admission Diagnosis: Attending: ALENA ADORNO Current LOS: 3 Anticipated DC Date: Planned Disposition: Home Health Service Primary Insurance: MEDICAID [place] Discharge Planning Comments: CM met with patient to complete initial dc planning assessment. CM educated patient on the CM role and verbal consent given by patient to complete assessment. Patient lives at home with his mother where he is independent with his care. At discharge patient plans to return home and feels this is a safe discharge. His mom with be his route delivery service driver home. CM discussed availability of home health, rehab services, and medical equipment. He will need home health for diabetic education. He is waiting to talk to his mom to see what company he would like to use, then CM will send referral. He was given a script for a glucometer. Patient denied known discharge needs at this time. CM will continue to follow and will assist as needed with dc plans/needs. Sales Technician: Lesly Dumont DCPIA - Discharge Planning Initial Assessment Updated by [email or web address]: Lesly Dumont on 03/14/19 12:32 pm * Is the patient Alert and Oriented? Yes * How many steps to enter\exit or inside your home? * PCP MENA * Pharmacy [facility] * Preadmission Environment Home with Family * ADLs Independent * Equipment None * List name and contact numbers for known caregivers / representatives who currently or will assist patient after discharge: KEYANA [phone] * Verbal permission to speak to the caregivers and representatives has been obtained from the patient. N/A * Additional services required to return to the preadmission environment? Yes * Can the patient safely return to the preadmission environment? Yes * Has this patient been hospitalized within the prior 30 days at any hospital? No External Providers External Provider: [employer] Next Contact Date: Service Request Date: Service Type: Resolution: Reviewer: Comments: Coverage Notice Reviewer: [email or web address] Mary Dumont Notice Issued Date-Time: 03/14/2019 12:10 Notice Type: Patient Choice Letter Notice Delivered To: Patient Relationship to Patient: Skip Load Driver Name: Delivery Method: - Courtney Days: Prior Verbal Notification: Recipient Understood Notice: Yes Recipient Signature: Yes Med Rec Note Co-signed by Attending: Coverage Notice Comment: MARK WITH ELITE Last DP export: 03/14/19 11:36 am Patient Name: ZENOBIA TREJO Page [id number] at 1431 All edits/amendments must be made on the electronic document DICTATION DATE: 03/14/191429 EMPLOYEE COMMUNICATIONS COORDINATOR: ROBERTO 03/14/19 1430 RPT#: [id number] DC DATE: STATUS: ADM IN [facility] [address] [place] [address] END OF REPORT
--- NOTE | 2019-03-14 15:00 | NUR ---
DISCHARGE INSTRUCTIONS GIVEN TO PATIENT AND MOTHER AT THIS TIME. BOTH VERBALIZED UNDERSTANDING WITH NO QUESTIONS AT THIS TIME. PRESCRIPTION GIVEN TO PATIENT. IV REMOVED WITH CATH TIP INTACT. WAITING FOR WC FOR DC. CALL LIGHT WITHIN REACH.;
--- NOTE | 2019-03-15 07:14 | MORECARE ---
CASE MANAGEMENT DISCHARGE SUMMARY PATIENT: ZENOBIA TREJO UNIT: [id number] ADM DATE: 03/11/19 AGE: 59 : 64 SEX: M ROOM/BED: D.2225 AUTHOR: BRETTDOC PHYSICIAN: REFERRING PHYSICIAN: ALENA ADORNO MD DATE OF SERVICE: 03/15/19 Discharge Plan Patient Name: ZENOBIA TREJO Facility: [facility]:[place] : 1960 Planned Disposition: Home Health Service Anticipated Discharge Date: Discharge Date: 03/14/2019 Expected LOS: Initial Reviewer: [email or web address] Initial Review Date: 03/11/2019 Generated: 03/15/19 8:14 am Comments DCP- Discharge Planning Updated by [email or web address]: Lesly Dumont on 03/14/19 1:[address] PATIENT HAS CHOOSEN [facility], MARK SIGNED AND PLACED IN CHART. RAY WITH [employer] NOTIFIED DCP- Discharge Planning Updated by [email or web address]: Lesly Dumont on 03/14/19 11:[address] Patient Name: ZENOBIA TREJO Admission Status: ER Accout number: [id number] Admission Date: 03-11-2019 : 1960 Admission Diagnosis: Attending: ALENA ADONRO Current LOS: 3 Anticipated DC Date: Planned Disposition: Home Health Service Primary Insurance: MEDICAID [place] Discharge Planning Comments: CM met with patient to complete initial dc planning assessment. CM educated patient on the CM role and verbal consent given by patient to complete assessment. Patient lives at home with his mother where he is independent with his care. At discharge patient plans to return home and feels this is a safe discharge. His mom with be his otr flatbed company truck driver home. CM discussed availability of home health, rehab services, and medical equipment. He will need home health for diabetic education. He is waiting to talk to his mom to see what company he would like to use, then CM will send referral. He was given a script for a glucometer. Patient denied known discharge needs at this time. CM will continue to follow and will assist as needed with dc plans/needs. Sign Writer Hand: Lesly Dumont DCPIA - Discharge Planning Initial Assessment Updated by [email or web address]: Lesly Dumont on 03/14/19 12:32 pm * Is the patient Alert and Oriented? Yes * How many steps to enter\exit or inside your home? * PCP MENA * Pharmacy [facility] * Preadmission Environment Home with Family * ADLs Independent * Equipment None * List name and contact numbers for known caregivers / representatives who currently or will assist patient after discharge: KEYANA [phone] * Verbal permission to speak to the caregivers and representatives has been obtained from the patient. N/A * Additional services required to return to the preadmission environment? Yes * Can the patient safely return to the preadmission environment? Yes * Has this patient been hospitalized within the prior 30 days at any hospital? No Coverage Notice Reviewer: [id number] - Lesly Dumont Notice Issued Date-Time: 03/14/2019 12:10 Notice Type: Patient Choice Letter Notice Delivered To: Patient Relationship to Patient: Geology Teacher Name: Delivery Method: - Courtney Days: Prior Verbal Notification: Recipient Understood Notice: Yes Recipient Signature: Yes Med Rec Note Co-signed by Attending: Coverage Notice Comment: MARK WITH ELITE Last DP export: 03/14/19 1:31 pm Patient Name: ZENOBIA TREJO Page [phone] at 0714 All edits/amendments must be made on the electronic document DICTATION DATE: 03/15/19713 TUBE WINDER HAND: ROBERTO 03/15/19713 RPT#: [id number] DC DATE:03/14/19 STATUS: DIS IN [facility] [address] [place] [address] END OF REPORT
== END 2019-03-14 15:41 | disposition home health service (06) | DRG 637 ==
LOC: D.ER 18:54 → D.MS 20:04
PROVIDERS: Emergency Medicine; Family Medicine; ADMIT Internal Medicine Nephrology; ATTEND Internal Medicine Nephrology
DX: E11.10 Type 2 diabetes mellitus with ketoacidosis without coma (principal); J96.01 Acute respiratory failure with hypoxia; E87.1 Hypo-osmolality and hyponatremia; N17.9 Acute kidney failure, unspecified; F17.213 Nicotine dependence, cigarettes, with withdrawal; E87.6 Hypokalemia; E83.42 Hypomagnesemia; I10 Essential (primary) hypertension; K21.9 Gastro-esophageal reflux disease without esophagitis; D64.9 Anemia, unspecified; D69.6 Thrombocytopenia, unspecified

== ENCOUNTER 2020-11-13 14:39 | Inpatient (IN) | payer MEDICAID ==
[~2020-11-13] VITALS: Ht 188 cm; Wt 93.7 kg
--- NOTE | ~2020-11-13 | HEMODYNAMI ---
PATIENT:ZENOBIA TREJO MEDICAL RECORD: [id number] : 64 LOCATION:[facility] D.2225 ADMISSION DATE: 11/13/20 Generatedon:115:49 Patient name: ZENOBIA TREJO Patient #: [id number] SSN: : 1960 Date of study: 11/24/2020 Page: Of Hemodynamic Procedure Report Patient Data Patient Demographics Procedure consent was obtained First Name: ZENOBIA Gender: Male Last Name: MAYA : 1960 Patient #: [id number] Age: 60 year(s) Race: Additional ID: [id number] Contact details Address: [address] [place] [address] State: [place] City: [place] Zip code: [address] Past Medical History Allergies: No known allergies Admission Admission Data Admission Date: 11/13/2020 Admission Time: 18:55 Room #: 2225 Procedure Procedure Types Cath Procedure Peripheral Cath Diagnostic Procedure Abscess Abscess Drain Injection Procedure Description Procedure Date Procedure Date: 11/24/2020 Procedure Start Time: 15:23 Procedure Staff Name Function Efrain Allred RT Monitor Karol Mims RN Nurse Rosalia Gonzales RN Nurse Luigi Carter MD Performing Physician Procedure Data Cath Procedure Fluoroscopy Diagnostic fluoroscopy Total fluoroscopy Time: 2.7 time: 2.7 min min Diagnostic fluoroscopy Total fluoroscopy dose: 77 dose: 77 mGy mGy Contrast Material Contrast Material Type Amount (ml) Isovue 300 25 Procedure Medications Medication Administration Route Dosage Heparin Flush Bag added to field 1 bags (1000units/500ml NS) Hemodynamics Rest Heart Rate: 88 (bpm) Snapshots Pre Cath Intra NCS Post Cath Vital Signs Time Heart Resp SPO2 etCO2 NIBP (mmHg) Rhythm Pain Sedation Rate (ipm) (%) (mmHg) Status Level (bpm) 15:16:08 79 5 95 29.2 139/81(110) NSR 0 (11) 10(A) , No pain 15:20:20 78 19 97 27.7 134/81(106) NSR 0 (11) 10(A) , No pain 15:24:30 84 20 97 26.2 133/80(110) NSR 0 (11) 10(A) , No pain 15:28:38 82 20 96 25.5 137/86(109) NSR 0 (11) 10(A) , No pain 15:32:48 81 20 96 26.2 137/82(112) NSR 0 (11) 10(A) , No pain 15:37:00 78 20 96 26.3 133/79(107) NSR 0 (11) 10(A) , No pain 15:41:10 77 15 97 26.2 132/84(111) NSR 0 (11) 10(A) , No pain 15:45:20 75 17 97 30.7 128/82(111) NSR 0 (11) 10(A) , No pain Medications Time Medication Route Dose Verified Delivered Reason Notes Effec tiveness by by 15:26:40 Heparin Flush added 1 Luigi Meyers used for Bag to bags Emma Carter procedure (1000units/500ml field MD THOMPSON NS) Procedure Log Time Note 15:04:41 Karol Mims RN sent for patient. Start room use. 15:04:50 Plan of Care:Hemodynamics will remain stable., Cardiac rhythm will remain stable., Comfort level will be maintained., Respiratory function will remain adequate., Patient/ family verbilizes understanding of procedure., Procedure tolerated without complication., Recovers from procedure without complications.. 15:04:55 Patient received from Med/Surg to IR Alert and oriented. Tansferred to table in Supine position. 15:04:58 Signed procedure consent form obtained from patient. 15:04:59 Correct patient and procedure confirmed by team. 15:05:00 Full Disclosure recording started 15:05:01 - 15:05:05 H&P Date Dictated: 11/24/2020 Within 30 days and on chart.. 15:05:05 Pre-procedure instructions explained to patient. 15:05:06 Pre-op teaching completed and patient verbalized understanding. 15:05:08 Family in waiting room. 15:05:13 Patient NPO since Breakfast. 15:05:20 Use device set IR Diagnostic 15:05:21 Bag Decanter (2002S) opened to sterile field. 15:05:22 Sterile Angiographic Pack opened to sterile field. 15:05:22 Tegaderm 4 x 4 (1626W) opened to sterile field. 15:05:29 ECG and BP/O2 sat monitors applied to patient. 15:05:37 Is the patient allergic to Iodine/contrast media? No. 15:05:39 Is patient on blood thinner?Yes 15:05:42 ACC The patient was administered the following blood thiners within the last 24 hours: ACCLovenox 15:05:44 Patient diabetic? No. 15:05:46 - 15:05:46 - 15:05:47 ----Pre-sedation anethsthesia assessment.---- 15:05:49 Previous problem with sedation/anesthesia? No ? 15:05:51 Snore? No 15:05:52 Sleep apnea? No 15:05:54 Deviated septum? No 15:05:56 Opens mouth fully? Yes 15:05:57 Sticks out tongue? Yes 15:06:00 Airway obstruction? No ? 15:06:07 Dentures? Yes partial 15:06:12 Sharps counted by scrub and verified by R.N. 15:06:18 Right Abdomen was prepped with chlora-prep and draped in sterile fashion. 15:09:10 IV patent on arrival in right wrist with 0.9% NaCl at KVO. 15:15:07 Baseline sample Acquired. 15:15:07 Vital chart was started 15:22:17 Physician arrived 15::18 --------ALL STOP TIME OUT------ 15::18 Final Timeout: patient, procedure, and site verified with staff and physician. All members of the team are in agreement. 15:22:27 Right abdomen site verified by team. 15::33 Sedation plan: Local Anesthetic Medication:Lidocaine 15:22:38 Fire Safety Assessment: A--An alcohol-based skin anteseptic being used preoperatively., C--Open oxygen or nitrous oxide is being used. 15:23:07 2) 60-89 Mildly reduced kidney function, and other findings (as for stage 1) point to kidney disease. 15:23:21 Maximum allowable contrast dose (3.7 X eGFR X 0.75)224.77 ml. 15:23:26 Procedure started. 15:26:40 Heparin Flush Bag (1000units/500ml NS) 1 bags added to field was administered by Luigi Carter MD; used for procedure; Verbal order read back and verified. 15:35:44 STOPCOCK 3-Way Large Bore ([id number]) opened to sterile field. 15:38:43 BAG, DRAINAGE EMPTY 600ML W/TORY ([id number]) opened to sterile field. 15:38:44 BAG, DRAINAGE EMPTY 600ML W/TORY ([id number]) opened to sterile field. 15:40:56 procedure stopped 15:41:42 Procedure ended.(Physican Out) 15:42:02 Fluoroscopy time 02.70 minutes. 15:42:13 Flurop Dose total: 77 15:42:13 Fluoroscopy dose: 77 mGy 15:42:25 Dose Area Product 14737 mGy/cm. 15:42:44 Contrast amount:Isovue 300 25ml. 15:42:49 Maximum allowable dose exceeded? No. 15:42:50 Sharps counted by scrub and verified by R.N. 15:43:38 Post Abdominal area:unchanged 15:44:29 Post procedure instruction explained to patient.Patient verbalizes understanding. 15:44:31 Patient needs reinforcement of post procedure teaching. 15:44:35 Procedure and supply charges have been captured, reviewed, submitted an d are correct. 15:48:23 Post-op/insertion site Right Abdominal area dressed using a 4 x 4 and Tegaderm. 15:48:28 Report given to Med/Surg. 15:48:32 Patient transfered to Med/Surg with Bed. 15:49:03 Vital chart was stopped Device Usage Item Name Manufacture Quantity Catalog Hospital Part Current Minimal Lot# / Number Charge Number Stock Stock Serial# Code Bag Decanter Microtek 1 [id number] () Medical Inc. Sterile Cardinal 1 [id number] 5 Angiographic Health Pack Tegaderm 4 x 3M 1 [id number] 5 4 (1626W) STOPCOCK [employer] 1 [id number] 5 3-Way Large Bore ([id number]) BAG, Merit 2 [id number] 5 DRAINAGE Medical EMPTY 600ML W/TORY ([id number]) Signature Audit [place] Stage Time Signature Unsigned Intra-Procedure 11/24/2020 Efrain 3:49:00 PM Chalino RT (R) (CV) [facility] [address] [place] [address]
--- NOTE | ~2020-11-13 | HEMODYNAMI ---
PATIENT:ZENOBIA TREJO MEDICAL RECORD: [id number] : 64 LOCATION:[facility] D.2225 ADMISSION DATE: 11/13/20 Generatedon:111:59 Patient name: ZENOBIA TREJO Patient #: [id number] SSN: : 1960 Date of study: 12/01/2020 Page: Of Hemodynamic Procedure Report Patient Data Patient Demographics Procedure consent was obtained First Name: ZENOBIA Gender: Male Last Name: MAYA : 1960 Patient #: [id number] Age: 60 year(s) Race: Additional ID: [id number] Contact details Address: [address] [place] [address] State: [place] City: [place] Zip code: [address] Past Medical History Allergies: No known allergies Admission Admission Data Admission Date: 11/13/2020 Admission Time: 18:55 Room #: 2225 Procedure Procedure Types Cath Procedure Peripheral Cath Diagnostic Procedure Abscess Abscess Drain Injection Procedure Description Procedure Date Procedure Date: 12/01/2020 Procedure Start Time: 11:55 Procedure Staff Name Function Sukhwinder Pérez MD Performing Physician Efrain Allred RT Monitor MANAN BORREGO RT Scrub Rosalia Gonzales RN Nurse Karol Mims RN Nurse Procedure Data Cath Procedure Fluoroscopy Diagnostic fluoroscopy Total fluoroscopy Time: 0 time: 0 min min Diagnostic fluoroscopy Total fluoroscopy dose: 32 dose: 32 mGy mGy Contrast Material Contrast Material Type Amount (ml) Isovue 300 10 Procedure Medications Medication Administration Route Dosage Lidocaine 1% added to field 20 Heparin Flush Bag added to field 1 bags (1000units/500ml NS) Hemodynamics Rest Heart Rate: 75 (bpm) Snapshots Pre Cath Intra NCS Post Cath Vital Signs Time Heart Resp SPO2 etCO2 NIBP (mmHg) Rhythm Pain Sedation Rate (ipm) (%) (mmHg) Status Level (bpm) 11:23:09 89 0 94 26.2 144/86(117) NSR 0 (11) 10(A) , No pain 11:27:21 89 19 94 26.2 141/86(114) NSR 0 (11) 10(A) , No pain 11:31:35 86 19 95 26.2 143/85(117) NSR 0 (11) 10(A) , No pain 11:35:49 90 18 96 27.7 141/86(115) NSR 0 (11) 10(A) , No pain 11:40:03 85 17 96 27.7 146/84(107) NSR 0 (11) 10(A) , No pain 11:44:15 87 14 96 27.7 143/84(121) NSR 0 (11) 10(A) , No pain 11:48:31 84 18 96 26.9 140/81(116) NSR 0 (11) 10(A) , No pain 11:52:45 85 19 96 27.7 143/80(113) NSR 0 (11) 10(A) , No pain 11:56:57 88 20 97 26.2 144/88(115) NSR 0 (11) 10(A) , No pain Medications Time Medication Route Dose Verified Delivered Reason Notes Effe ctiveness by by 11:47:15 Lidocaine 1% added 20ml Sukhwinder Pretty for local to vial Beto Pérez MD anesthetic field 11:47:29 Heparin Flush added 1 Sukhwinder Pretty used for Bag to bags Beto Pérez MD procedure (1000units/500ml field THOMPSON NS) Procedure Log Time Note 10:36:23 Efrain [facility] RT (R) (CV) sent for patient. Start room use. 10:36:37 Time tracking: Stay late (Procedures after 5:00pm) 10:36:43 Plan of Care:Hemodynamics will remain stable., Cardiac rhythm will remain stable., Comfort level will be maintained., Respiratory function will remain adequate., Patient/ family verbilizes understanding of procedure., Procedure tolerated without complication., Recovers from procedure without complications.. 10:36:49 Patient received from Med/Surg to IR Alert and oriented. Tansferred to table in Supine position. 10:37:10 Signed procedure consent form obtained from patient. 10:37:12 Correct patient and procedure confirmed by team. 10:37:13 ECG and BP/O2 sat monitors applied to patient. 10:37:15 Full Disclosure recording started 10:37:15 - 10:37:20 H&P Date Dictated: 12/01/2020 Within 30 days and on chart.. 10:37:43 Is patient on blood thinner?No 10:37:45 Patient diabetic? No. 10:37:48 - 10:37:49 ----Pre-sedation anethsthesia assessment.---- 10:37:52 Previous problem with sedation/anesthesia? No ? 10:38:05 If diabetic: On Metformin? No 10:38:13 Snore? No 10:38:15 Sleep apnea? Yes 10:38:20 Deviated septum? No 10:38:21 Opens mouth fully? Yes 10:38:22 Sticks out tongue? Yes 10:38:25 Airway obstruction? No ? 10:38:48 Dentures? No ? 10:38:53 Use device set IR Diagnostic 10:38:55 Bag Decanter (2002S) opened to sterile field. 10:38:55 Sterile Angiographic Pack opened to sterile field. 10:38:56 Tegaderm 4 x 4 (1626W) opened to sterile field. 11:22:08 Vital chart was started 11:22:10 Baseline sample Acquired. 11:45:32 Alarms reviewed by Inga Kc 11:45:32 - 11:45:33 Sharps counted by scrub and verified by R.N. 11:45:40 Right Abdomen was prepped with chlora-prep and draped in sterile fashion. 11:45:51 IV patent on arrival in right forearm with 0.9% NaCl at [facility]. 11:46:05 2) 60-89 Mildly reduced kidney function, and other findings (as for stage 1) point to kidney disease. 11:46:41 Maximum allowable contrast dose (3.7 X eGFR X 0.75)202.57 ml. 11:47:15 Lidocaine 1% 20ml vial added to field was administered by Sukhwinder Pérez MD; for local anesthetic; Verbal order read back and verified. 11:47:29 Heparin Flush Bag (1000units/500ml NS) 1 bags added to field was administered by Sukhwinder Pérez MD; used for procedure; Verbal order read back and verified. 11:52:45 Physician arrived 11:52:46 --------ALL STOP TIME OUT------ 11:52:47 Final Timeout: patient, procedure, and site verified with staff and physician. All members of the team are in agreement. 11:52:51 Right abdomen site verified by team. 11:52:55 Fire Safety Assessment: A--An alcohol-based skin anteseptic being used preoperatively., C--Open oxygen or nitrous oxide is being used. 11:53:02 Sedation plan: Local Anesthetic Medication:Lidocaine 11:55:02 Procedure started. 11:57:24 GLIDE WIRE ANGLE 180cm ([id number]) opened to sterile field. 11:57:46 Procedure ended.(Physican Out) 11:58:22 Contrast amount:Isovue 300 10ml. 11:58:40 Fluoroscopy time 00.00 minutes. 11:58:43 Fluoroscopy dose: 32 mGy 11:58:43 Flurop Dose total: 32 11:58:47 Insertion/operative site no bleeding no hematoma. 11:58:55 Post-op/insertion site Right Abdominal area dressed using a 4 x 4 and Tegaderm. 11:59:05 Post Abdominal area:stable 11:59:08 Procedure and supply charges have been captured, reviewed, submitted an d are correct. 11:59:11 Post procedure instruction explained to patient.Patient verbalizes understanding. 11:59:23 Report given to Med/Surg. 11:59:27 Patient transfered to Med/Surg with Bed. 11:59:51 Vital chart was stopped Device Usage Item Name Manufacture Quantity Catalog Hospital Part Current Minimal Lot# / Number Charge Number Stock Stock Serial# Code Bag Decanter Microtek 1 [id number] () Medical Inc. Sterile Cardinal 1 [id number] 5 Angiographic Health Pack Tegaderm 4 x 3M 1 1626W [id number] [id number] 5 4 (1626W) GLIDE WIRE Terumo 1 [id number] 5 ANGLE 180cm ([id number]) Signature Audit [place] Stage Time Signature Unsigned Intra-Procedure 12/01/2020 Efrain 11:59:48 AM Chalino RT (R) (CV) [facility] [address] [place] [address]
[~2020-11-13 14:39] MED LIST changes: +ALTACE10 MG PO; +HUMULIN R100 U/ML SC; +LANTUS SOL100 UNIT/1 SC; +OMEPRAZOLE40 MG PO
[2020-11-13 15:25] LABS: CALC OSMOLALITY 274 mosm/kg (275-300); CALCIUM 9.3 mg/dL (8.5-10.1); CARBON DIOXIDE 20.9 mmol/L (21.0-32.0); CHLORIDE - SERUM 93 mmol/L (98-107); CREATININE - SERUM 1.7 mg/dL (0.6-1.3); POTASSIUM - SERUM 4.9 mmol/L (3.5-5.1); SODIUM 129 mmol/L (136-145); UREA NITROGEN 28 mg/dL (7-18); eGFR NON AFRICAN AMERICAN 44 mL/min (90-120)
[2020-11-13 15:26] LABS: GLUCOSE 270 mg/dL (74-106)
[2020-11-13 15:34] LABS: ALBUMIN 2.8 g/dL (3.4-5.0); ALKALINE PHOSPHATASE 133 U/L (30-120); ALT (SGPT) 15 U/L (10-68); AMYLASE - SERUM 16 U/L (25-115); LIPASE 100 U/L (73-393); PROTEIN - SERUM 7.8 g/dL (6.4-8.2); TROPONIN-I < 0.017 ng/mL (0.000-0.060)
[2020-11-13 15:45] LABS: BASOPHILS 0.1 % (0-2); EOSINOPHILS 0.4 % (0-7); HEMATOCRIT 33.3 % (42.0-54.0); HEMOGLOBIN 11.2 g/dL (13.5-17.5); IMMATURE GRANULOCYTES 0.4 % (0-5); LYMPHOCYTE ABS# 1.22 10x3/uL (1.32-3.57); LYMPHOCYTES 7.9 % (15-50); MCH 31.8 pg (26.0-34.0); MCHC 33.6 g/dL (31.0-37.0); MCV 94.6 fL (80.0-100.0); MEAN PLATELET VOLUME 9.9 fL (7.4-10.4); MONOCYTES 7.8 % (2-11); NEUTROPHIL ABS# 12.81 10x3/uL (1.78-5.38); NEUTROPHILS 83.4 % (40-80); RBC 3.52 10x6/uL (4.20-6.10); RDW 12.4 % (11.5-14.5); WBC 15.4 10x3/uL (4.8-10.8)
[2020-11-13 15:54] LABS: PLATELET COUNT 281 10x3/uL (130-400)
--- NOTE | 2020-11-13 16:40 | NUR ---
URINE SENT TO LAB
--- NOTE | 2020-11-13 18:58 | NUR ---
PT MOTHER (KEYANA) PHONE # [phone].
[2020-11-13 21:55] VITALS: BMI 25.6
[2020-11-14 01:37] VITALS: BP 111/47
[2020-11-14 05:31] VITALS: BP 103/43
[2020-11-14 06:56] LABS: BASOPHILS 0.2 % (0-2); EOSINOPHILS 0.7 % (0-7); HEMOGLOBIN 10.7 g/dL (13.5-17.5); IMMATURE GRANULOCYTES 0.2 % (0-5); LYMPHOCYTE ABS# 1.07 10x3/uL (1.32-3.57); LYMPHOCYTES 8.9 % (15-50); MCH 31.2 pg (26.0-34.0); MCHC 32.4 g/dL (31.0-37.0); MCV 96.2 fL (80.0-100.0); MEAN PLATELET VOLUME 10.3 fL (7.4-10.4); MONOCYTES 7.5 % (2-11); NEUTROPHIL ABS# 9.94 10x3/uL (1.78-5.38); NEUTROPHILS 82.5 % (40-80); PLATELET COUNT 245 10x3/uL (130-400); RBC 3.43 10x6/uL (4.20-6.10); RDW 12.5 % (11.5-14.5); WBC 12.1 10x3/uL (4.8-10.8)
[2020-11-14 07:05] LABS: APTT 41.6 SECONDS (22.8-39.4); INR 1.42 (0.85-1.17); PROTIME 16.1 SECONDS (11.6-15.0)
[2020-11-14 07:22] LABS: ALBUMIN 2.5 g/dL (3.4-5.0); ANION GAP 17.2 mmol/L (8-16); BILIRUBIN - DIRECT 0.14 mg/dL (0.00-0.30); BILIRUBIN - INDIRECT 0.24 mg/dL (0.00-1.00); BILIRUBIN - TOTAL 0.38 mg/dL (0.2-1.3); CALCIUM 9.1 mg/dL (8.5-10.1); CARBON DIOXIDE 21.3 mmol/L (21.0-32.0); CREATININE - SERUM 1.3 mg/dL (0.6-1.3); PHOSPHOROUS 3.7 mg/dL (2.5-4.9); POTASSIUM - SERUM 4.5 mmol/L (3.5-5.1); PROTEIN - SERUM 7.1 g/dL (6.4-8.2)
[2020-11-14 07:37] LABS: C-REACTIVE PROTEIN 25.1 mg/dL (0.0-0.9)
[2020-11-14 08:07] VITALS: BP 103/56
[2020-11-14 10:54] LABS: BILIRUBIN NEGATIVE (NEGATIVE); KETONE SMALL mg/dL (NEGATIVE); NITRITE NEGATIVE (NEGATIVE); UROBILINOGEN NORMAL mg/dL (< 2)
[2020-11-14 10:55] LABS: BACTERIA FEW HPF (NONE SEEN); WHITE CELLS - URINE OCC HPF (0-1)
[2020-11-14 10:57] LABS: ERYTHROCYTE SEDIMENTATION RATE 81 mm/hr (0-20)
[2020-11-14 12:10] VITALS: BP 104/61
[2020-11-14 16:59] VITALS: BP 118/65
--- NOTE | 2020-11-14 19:00 | NUR ---
BEDSIDE REPORT RECEIVED AND CARE OF PT ASSUMED. PT LYING IN LOW HOLLIDAY'S POSITION WATCHING TV. IV TO LEFT AC PATENT WITH ABX INFUSING. WILL MONITOR FOR NEEDS.
--- NOTE | 2020-11-14 19:40 | NUR ---
HS MEDICATIONS GIVEN...STARTED NEW BAG OF MVI. WILL CONINUE TO MONITOR FOR NEEDS.
[2020-11-14 20:00] VITALS: BP 134/62
--- NOTE | 2020-11-14 22:00 | NUR ---
GAVE NORCO PO PER PT REQUEST FOR ABDOMINAL PAIN AT LEVEL 7/10. WILL MONITOR FOR EFFECTIVENESS.
[2020-11-15] VITALS: BP 111/58
[2020-11-15 04:00] VITALS: BP 120/64
[2020-11-15 05:07] LABS: BASOPHILS 0.2 % (0-2); EOSINOPHILS 0.4 % (0-7); HEMATOCRIT 31.3 % (42.0-54.0); HEMOGLOBIN 10.4 g/dL (13.5-17.5); IMMATURE GRANULOCYTES 0.4 % (0-5); LYMPHOCYTE ABS# 1.02 10x3/uL (1.32-3.57); LYMPHOCYTES 10.4 % (15-50); MCH 31.7 pg (26.0-34.0); MCHC 33.2 g/dL (31.0-37.0); MCV 95.4 fL (80.0-100.0); MONOCYTES 7.1 % (2-11); NEUTROPHIL ABS# 7.99 10x3/uL (1.78-5.38); NEUTROPHILS 81.5 % (40-80); PLATELET COUNT 222 10x3/uL (130-400); RBC 3.28 10x6/uL (4.20-6.10); RDW 12.5 % (11.5-14.5); WBC 9.8 10x3/uL (4.8-10.8)
[2020-11-15 05:38] LABS: ALBUMIN 2.4 g/dL (3.4-5.0); ANION GAP 20.6 mmol/L (8-16); BILIRUBIN - TOTAL 0.36 mg/dL (0.2-1.3); CALCIUM 8.8 mg/dL (8.5-10.1); CARBON DIOXIDE 17.8 mmol/L (21.0-32.0); CREATININE - SERUM 1.2 mg/dL (0.6-1.3); MAGNESIUM - SERUM 1.9 mg/dL (1.8-2.4); PHOSPHOROUS 3.8 mg/dL (2.5-4.9); POTASSIUM - SERUM 4.4 mmol/L (3.5-5.1); PROTEIN - SERUM 6.8 g/dL (6.4-8.2)
[2020-11-15 08:04] VITALS: BP 103/56
--- NOTE | 2020-11-15 09:17 | NUR ---
AAOX4 UPON ENTERING. ADMINISTERED PRN NORCO FOR PAIN. HUNG IV ABX, TOLERATING WELL. SITTING UPRIGHT IN BED, FAMILY AT BEDSIDE. DENIES ANY NEEDS AT THIS TIME. ASSESSMENT PERFORMED. WILL CONTINUE POC.
--- NOTE | 2020-11-15 11:13 | NUR ---
I have reviewed this patient and I concur with the Shift Assessment completed by the Licensed Practical Nurse today this shift.
[2020-11-15 11:35] VITALS: BP 107/51
--- NOTE | 2020-11-15 12:32 | NUR ---
PRN TYLENOL. REFUSED INSULIN FOR SUGAR OF 152. RESTING COMFORTABLY IN BED. DR. BARTON IN ROOM. DENIES ANY NEEDS AT THIS TIME. BED IN LOWEST POSITION, BED RAILS X2, CALL LIGHT WITHIN REACH. WILL CONTINUE POC.
--- NOTE | 2020-11-15 14:01 | NUR ---
PRN NORCO FOR PAIN 7/10 IN RLQ. RESTING IN BED, FAMILY AT BEDSIDE. DENIES ANY NEEDS AT THIS TIME. WILL CONTINUE POC.
[2020-11-15 14:31] LABS: ERYTHROCYTE SEDIMENTATION RATE 86 mm/hr (0-20)
[2020-11-15 16:00] VITALS: BP 114/62
--- NOTE | 2020-11-15 18:25 | NUR ---
REFUSED INSULIN FOR SUGAR OF 157.
--- NOTE | 2020-11-15 18:25 | NUR ---
ADMINISTERED PRN NORCO FOR PAIN. IV MEDICATION, TOLERATED WELL. HUNG IV ABX. NO DIFFICULTIES. RESTING COMFORTABLY. FAMILY AT BEDSIDE. DENIES ANY NEEDS AT THIS TIME. WILL CONTINUE POC.
[2020-11-15 20:00] VITALS: BP 124/67
[2020-11-16] VITALS: BP 127/61
[2020-11-16 04:00] VITALS: BP 129/60
--- NOTE | 2020-11-16 04:40 | NUR ---
Pt did drink 3/4 of glyte. Pt has been NPO since midnight per order. Pain has been managed and maintained at around a 5/10 this night. IV meds as ordered. Pt's mom has stayed the night with him. Pt has slept on and off utilizing the bathroom several times with liquid stools.
[2020-11-16 04:59] LABS: BASOPHILS 0.2 % (0-2); EOSINOPHILS 0.4 % (0-7); HEMATOCRIT 31.1 % (42.0-54.0); HEMOGLOBIN 10.2 g/dL (13.5-17.5); IMMATURE GRANULOCYTES 0.4 % (0-5); LYMPHOCYTE ABS# 0.98 10x3/uL (1.32-3.57); LYMPHOCYTES 10.8 % (15-50); MCH 31.4 pg (26.0-34.0); MCHC 32.8 g/dL (31.0-37.0); MCV 95.7 fL (80.0-100.0); MEAN PLATELET VOLUME 10.2 fL (7.4-10.4); MONOCYTES 8.5 % (2-11); NEUTROPHILS 79.7 % (40-80); PLATELET COUNT 217 10x3/uL (130-400); RBC 3.25 10x6/uL (4.20-6.10); RDW 12.5 % (11.5-14.5); WBC 9.1 10x3/uL (4.8-10.8)
[2020-11-16 05:36] LABS: ALBUMIN 2.3 g/dL (3.4-5.0); BILIRUBIN - TOTAL 0.34 mg/dL (0.2-1.3); CALCIUM 8.6 mg/dL (8.5-10.1); CREATININE - SERUM 1.3 mg/dL (0.6-1.3); POTASSIUM - SERUM 4.5 mmol/L (3.5-5.1); PROTEIN - SERUM 6.6 g/dL (6.4-8.2)
[2020-11-16 05:40] LABS: ANION GAP 13.8 mmol/L (8-16); CARBON DIOXIDE 23.7 mmol/L (21.0-32.0)
--- NOTE | 2020-11-16 07:22 | NUR ---
SLEEPING,WITHOUT SIGNS OF DISTRESS.CALL LIGHT IN REACH
--- NOTE | 2020-11-16 07:26 | NUR ---
RCEIVED CALL OVER [place] PATIENT TEMP IS 101.2, ADMINISTERED PRN TYLENOL FOR FEVER, NO OTHER NEEDS AT THIS TIME, MOTHER AT BEDSIDE, CONTINUE WITH PLAN OF CARE
[2020-11-16 09:36] VITALS: BP 127/61
--- NOTE | 2020-11-16 10:14 | NUR ---
RECEIVED CALL TO PREOP PATIENT, ADMINISTERED PREOP ORDERS, FLUIDS AND NEW TUBING ON BED, NO OTHER NEEDS AT THIS TIME, CONTINUE WITH PLAN OF CARE
[2020-11-16 12:48] VITALS: Ht 188 cm; Wt 93.7 kg
--- NOTE | 2020-11-16 15:28 | NUR ---
PATIENT CAME BACK FROM CT SHIVERING, TEMPORAL SHOWED 98.1 ASSISTED PATIENT WITH BLANKETS AND TURENED DOWN AIR IN ROOM. NO OTHER NEEDS AT THIS TIME. CONTINUE WITH PLAN OF CARE
[2020-11-16 16:18] VITALS: BP 112/71
--- NOTE | 2020-11-16 18:54 | NUR ---
PATIENT HAS IV ABX TO [facility], ADMINISTERED PRN PAIN MEDICATION AT 1730, NO OTHER NEEDS AT THIS TIME. COPNTINUE WITH PLAN OF CARE
[2020-11-16 20:00] VITALS: BP 113/60
[2020-11-17] VITALS: BP 115/54
[2020-11-17 04:00] VITALS: BP 118/60
--- NOTE | 2020-11-17 04:14 | NUR ---
I have reviewed this patient and I concur with the Shift Assessment completed by the Licensed Practical Nurse today this shift.
[2020-11-17 05:34] LABS: BASOPHILS 0.2 % (0-2); EOSINOPHILS 0.2 % (0-7); HEMATOCRIT 31.3 % (42.0-54.0); HEMOGLOBIN 10.3 g/dL (13.5-17.5); IMMATURE GRANULOCYTES 0.6 % (0-5); LYMPHOCYTE ABS# 0.91 10x3/uL (1.32-3.57); LYMPHOCYTES 8.8 % (15-50); MCH 31.4 pg (26.0-34.0); MCHC 32.9 g/dL (31.0-37.0); MCV 95.4 fL (80.0-100.0); MEAN PLATELET VOLUME 10.4 fL (7.4-10.4); MONOCYTES 8.7 % (2-11); NEUTROPHIL ABS# 8.43 10x3/uL (1.78-5.38); NEUTROPHILS 81.5 % (40-80); PLATELET COUNT 247 10x3/uL (130-400); RBC 3.28 10x6/uL (4.20-6.10); RDW 12.7 % (11.5-14.5); WBC 10.3 10x3/uL (4.8-10.8)
[2020-11-17 06:02] LABS: ALBUMIN 2.3 g/dL (3.4-5.0); ANION GAP 19.6 mmol/L (8-16); BILIRUBIN - TOTAL 0.29 mg/dL (0.2-1.3); CALCIUM 8.8 mg/dL (8.5-10.1); CARBON DIOXIDE 20.6 mmol/L (21.0-32.0); CREATININE - SERUM 1.3 mg/dL (0.6-1.3); MAGNESIUM - SERUM 1.7 mg/dL (1.8-2.4); PHOSPHOROUS 3.8 mg/dL (2.5-4.9); POTASSIUM - SERUM 4.2 mmol/L (3.5-5.1); PROTEIN - SERUM 6.8 g/dL (6.4-8.2)
--- NOTE | 2020-11-17 07:58 | NUR ---
PATIENT STATED LAST NIGHT WAS TOLERABLE, PAIN MANAGEABLE, ABD SOFT, AFEBRILE THROUGH THE NIGHT. NO NEEDS VOICED, CL IN ERACH, CONTINUE WITH PLAN OF CARE
[2020-11-17 09:00] VITALS: BP 114/61
[2020-11-17 10:12] LABS: EBV VIRAL CAPSID AB IGM <36.0 U/mL (0.0-35.9)
--- NOTE | 2020-11-17 12:36 | NUR ---
FAMILY AT BEDSIDE. PATIENT IS WITHOUT DISTRESS.CALL LIGHT IN REACH
[2020-11-17 13:50] VITALS: BP 104/56
[2020-11-17 15:09] LABS: ALBUMIN 2.2 g/dL (3.4-5.0); ANION GAP 12.7 mmol/L (8-16); BILIRUBIN - TOTAL 0.23 mg/dL (0.2-1.3); CALCIUM 8.8 mg/dL (8.5-10.1); CARBON DIOXIDE 25.6 mmol/L (21.0-32.0); CREATININE - SERUM 1.2 mg/dL (0.6-1.3); POTASSIUM - SERUM 4.3 mmol/L (3.5-5.1); PROTEIN - SERUM 6.5 g/dL (6.4-8.2)
--- NOTE | 2020-11-17 15:47 | NUR ---
PATIENT TEMP IS 101.1 PT ROOM A LITTLE WARM BUT AC IS ON 65, ADMINISTERED PRN PAIN MEDICATION WELL TYLENOL, PT STATED HE DOES NOT FEEL WARM, TOOK BLANKET OFF AND LEFT SHEET ON PT. NO OTEHR NEEDS AT THIS TIME. CONTNUE WITH PLAN OF CARE
--- NOTE | 2020-11-17 16:58 | NUR ---
WRAPPED PATIENT IV SITE SO HE MAY GET IN SHOWER. MOTHER AT BEDSIDE, NO OTHER NEEDS VOICED AT THIS TIME. CONTINUE WITH PLAN OF CARE
[2020-11-17 17:39] VITALS: BP 128/64
[2020-11-17 20:00] VITALS: BP 98/52
--- NOTE | 2020-11-17 22:00 | NUR ---
ENTERED ROOM INRSPONSE TO CL. A&O X 4. PT REPORTS PAIN IS A "HEAVY 02/20." VERBALIZED UNDERSTANDING OF NPO STATUS AFTER MIDNIGHT, CTM.
--- NOTE | 2020-11-17 23:51 | NUR ---
I have reviewed this patient and I concur with the Shift Assessment completed by the Licensed Practical Nurse today this shift.
[2020-11-18] VITALS: BP 106/52
[2020-11-18 04:00] VITALS: BP 109/56
[2020-11-18 06:04] LABS: BASOPHILS 0.2 % (0-2); EOSINOPHILS 0.6 % (0-7); HEMATOCRIT 29.2 % (42.0-54.0); HEMOGLOBIN 9.6 g/dL (13.5-17.5); IMMATURE GRANULOCYTES 0.4 % (0-5); LYMPHOCYTE ABS# 0.83 10x3/uL (1.32-3.57); LYMPHOCYTES 10.4 % (15-50); MCH 31.5 pg (26.0-34.0); MCHC 32.9 g/dL (31.0-37.0); MCV 95.7 fL (80.0-100.0); MEAN PLATELET VOLUME 10.6 fL (7.4-10.4); MONOCYTES 8.5 % (2-11); NEUTROPHILS 79.9 % (40-80); PLATELET COUNT 222 10x3/uL (130-400); RBC 3.05 10x6/uL (4.20-6.10); RDW 12.8 % (11.5-14.5)
[2020-11-18 06:14] LABS: APTT 45.1 SECONDS (22.8-39.4); INR 1.69 (0.85-1.17); PROTIME 18.5 SECONDS (11.6-15.0)
[2020-11-18 06:39] LABS: ALBUMIN 2.1 g/dL (3.4-5.0); ANION GAP 17.5 mmol/L (8-16); BILIRUBIN - TOTAL 0.24 mg/dL (0.2-1.3); CALCIUM 8.4 mg/dL (8.5-10.1); CARBON DIOXIDE 20.1 mmol/L (21.0-32.0); CREATININE - SERUM 1.1 mg/dL (0.6-1.3); MAGNESIUM - SERUM 1.4 mg/dL (1.8-2.4); PHOSPHOROUS 4.3 mg/dL (2.5-4.9); POTASSIUM - SERUM 3.6 mmol/L (3.5-5.1); PROTEIN - SERUM 6.2 g/dL (6.4-8.2)
--- NOTE | 2020-11-18 08:30 | NUR ---
PATIENT REQUESRTED PAIN MEDICATION, ADMINISTER PRN MEDICATION VIA IV AND STARTED ANOTHER GRAM OF MAG IV. MOTHER AT BEDSIDE, NO OTHER NEEDS VOICED AT THIS TIME. CL IN REACH, CONTINUE WITH PLAN OF CARE
[2020-11-18 09:08] VITALS: BP 130/68
--- NOTE | 2020-11-18 10:55 | NUR ---
PATIENT SLEEPING, MOTHER AT BEDSIDE, AWAITING CT GUIDED DRAIN THIS MORNNG. NO NEEDS VOICED, CL IN REACH CONTINUE WITH PLAN OF CARE
--- NOTE | 2020-11-18 11:40 | NUR ---
STARTED PT FFP, RUNNING SLOW PER IR NURSE, NO OTHER EEDS AT THIS TIME. CONTINUE WITH PLAN OF CARE
--- NOTE | 2020-11-18 11:48 | NUR ---
PATIENT TAKEN TO IR BY SPECIALS NURSE DOMINIC, FFPS CONTINUE. WILL CONTINUE WITH PLAN OF CARE
[2020-11-18 14:48] VITALS: BP 118/66
--- NOTE | 2020-11-18 14:50 | NUR ---
IN BED, RESTING. FREE FROM SIGNS OF DISTRESS. BED LOW POSITION, CALL LIGHT IN REACH. WILL CONTINUE TO MONITOR.
--- NOTE | 2020-11-18 17:32 | NUR ---
PATIENT FELT WARM WHILE I WAS ADMINISTERING PRN PAIN MEDICATION AND FLUSHING DRAINS, ASKED [employer]LE TO RETAKE PATIENT TEMP AND TEMPORAL WAS 104.7. ORDERED BLOOD CULTURES WELL PLACED ICE PACKS UNDER PATIENT ARMS. CALLED AND SPOKE TO CHLOE VALDERRAMA. PER BELINDA, ADMINISTER TYLENOL, ORDER VANCOMYCIN AND PHARMACY TO DOSE. NO OTHER NEEDS AT THIS TIME, MOTHER AT BEDSIDE, CONTINUE WITH PLAN OF CARE
[2020-11-18 17:47] VITALS: BP 160/78
[2020-11-18 20:00] VITALS: BP 117/64
--- NOTE | 2020-11-18 23:51 | NUR ---
I have reviewed this patient and I concur with the Shift Assessment completed by the Licensed Practical Nurse today this shift.
[2020-11-19] VITALS: BP 127/66
--- NOTE | 2020-11-19 00:15 | NUR ---
PT STATES PAIN 02/20, GAVE DILAUDID ORDERED. FSBS 180, GAVE INSULIN PER SS. DENES OTHER NEEDS. CL IN REACH
[2020-11-19 04:00] VITALS: BP 108/55
[2020-11-19 06:01] LABS: BASOPHILS 0.2 % (0-2); EOSINOPHILS 0.4 % (0-7); HEMATOCRIT 28.5 % (42.0-54.0); HEMOGLOBIN 9.3 g/dL (13.5-17.5); IMMATURE GRANULOCYTES 0.5 % (0-5); LYMPHOCYTE ABS# 0.49 10x3/uL (1.32-3.57); LYMPHOCYTES 8.8 % (15-50); MCH 31.2 pg (26.0-34.0); MCHC 32.6 g/dL (31.0-37.0); MCV 95.6 fL (80.0-100.0); MEAN PLATELET VOLUME 9.4 fL (7.4-10.4); MONOCYTES 7.2 % (2-11); NEUTROPHILS 82.9 % (40-80); PLATELET COUNT 183 10x3/uL (130-400); RBC 2.98 10x6/uL (4.20-6.10); RDW 12.8 % (11.5-14.5)
[2020-11-19 06:12] LABS: WBC 5.6 10x3/uL (4.8-10.8)
[2020-11-19 06:31] LABS: ALBUMIN 2.2 g/dL (3.4-5.0); ANION GAP 17.9 mmol/L (8-16); BILIRUBIN - TOTAL 0.29 mg/dL (0.2-1.3); CALCIUM 8.2 mg/dL (8.5-10.1); CREATININE - SERUM 1.3 mg/dL (0.6-1.3); MAGNESIUM - SERUM 1.9 mg/dL (1.8-2.4); PHOSPHOROUS 4.6 mg/dL (2.5-4.9); POTASSIUM - SERUM 3.9 mmol/L (3.5-5.1); PROTEIN - SERUM 5.7 g/dL (6.4-8.2)
--- NOTE | 2020-11-19 07:32 | NUR ---
PT IS RESTING IN BED WITH EYES OPEN. RESPIRATIONS ARE EVEN AND UNLABORED. PT IS AAO X 4 AND ANSWERS ALL QUESTIONS APPROPRIATELY. PT MOTHER AT BEDSIDE. PIV TO LEFT FA INFUSING PER ORDER. BS HYPOACTIVE X 4. BILIARY DRAIN X 2 NOTED TO RIGHT FLANK/BACK. SCANT AMOUNT OF MILKY COLORED DRAINAGE NOTED. DRESSING CDI. AUTOMATION QTP TESTER IN PLACE AND RUNNING 57 SB PER INSURANCE APPRAISER. PT DENIES [RESENCE OF PAIN/N/V AT THIS TIME. PT DENIES PRESENCE OF DYSPNEA/SOB AT THIS TIME. INCENTIVE SPIROMETER AT BEDSIDE AND ENCOURAGED. PT REFUSES SCDS. BED IS IN THE LOWEST POSITION. CALL LIGHT AND BEDSIDE TABLE ARE WITHIN REACH. SIDE RAILS X 2. PT AND PT MOTHER DENY FRTHER NEEDS. WILL CONT TO MONITOR.
[2020-11-19 08:11] VITALS: BP 96/53
[2020-11-19 12:56] VITALS: BP 111/61
--- NOTE | 2020-11-19 14:31 | NUR ---
BILIARY DRAIN X 2 FLUSHED WITH 10ML STERILE NS PER ORDER. PT TOLERATED WELL. SMALL AMOUNT OF MILKY COLORED DRAINAGE NOTED TO COLLECTION BAGS. MOTHER AT BEDSIDE. PT REPORTS PAIN. WILL ADDRESS. SEE EMAR. INCENTIVE SPIROMETER WITHIN REACH. BED IS IN THE LOWEST POSITION. CALL LIGHT AND BEDSIDE TABLE ARE WITHIN REACH. SIDE RAILS X 2. PT DENIES FURTHER NEEDS. WILL CONT TO MONITOR.
--- NOTE | 2020-11-19 15:28 | NUR ---
PT WITH SPIKE IN TEMPERATURE AT 106.2 ORAL. ICE PACKS PLACED. BLANKETS REMOVED. MOTRIN ADMINISTERED. BLOOD CULTURES X 2 ORDERED. BRAYDEN MURPHY APRN NOTIFIED. LAB INFORMED OF STAT ORDER OF BLOOD CULTURES. PT IS AAO X 4 AND REPORTS PAIN AT 7/10 TO BILI DRAIN INSERTION SITE. RESPIRATIONS ARE EVEN AND UNLABORED. ROOM AIR CONDITIONER TURNED ON. BED IS IN THE LOWEST POSITION. CALL LIGHT AND BEDSIDE TABLE ARE WITHIN REACH. SIDE RAILS X 2. WILL CONT TO MONITOR.
--- NOTE | 2020-11-19 15:39 | NUR ---
ORAL TEMP @ 102.3 POST ICE PACK AND BLANKET REMOVAL. PT AAO X 4 AND ANSWERS ALL QUESTIONS APPROPRIATELY.
[2020-11-19 15:44] VITALS: BP 132/73
[2020-11-19 20:00] VITALS: BP 103/62
--- NOTE | 2020-11-19 20:00 | NUR ---
PT TOOK BATH AT THIS TIME. LINENS CHANGED. FLUSHED BILI DRAINS TO RIGHT FLANK. STATES PAIN 7/10, REQUESTED AND GIVEN NORCO. DENIES OTHER NEEDS. CL IN REACH
--- NOTE | 2020-11-20 00:15 | NUR ---
PT STATES PAIN 02/20, GAVE DILAUDID ORDERED. FSBS 180, INSULIN COVERAGE PER SS. DENIES OTHER NEEDS. CL IN REACH
[2020-11-20 00:48] VITALS: BP 98/60
--- NOTE | 2020-11-20 01:20 | NUR ---
PT STATES PAIN 02/20 TO ABD, GAVE NORCO ORDERED. DENIES OTHER NEEDS AT THIS TIME. CL IN REACH
[2020-11-20 04:00] VITALS: BP 113/63
--- NOTE | 2020-11-20 05:45 | NUR ---
PT STATES PAIN 02/20 IN ABD, GAVE NORCO ORDERED. FLUSHED BOTH BILI DRAINS AND EMPTIED THEM. BOTH HAD 3ML EACH OF MILKY WHITE DRAINAGE MEASURED WITH MEDICINE CUP. FSBS 167, COVERAGE PER SS. PROVIDED ICE WATER. DENIES OTHER NEEDS AT THIS TIME. CL IN REACH
--- NOTE | 2020-11-20 07:26 | NUR ---
ALERT AND ORIENTED. ASSESSMENT COMPLETE. DENIES NEEDS. BED LOW. CALL QUARLES AND PERSONAL ITEMS IN REACH. WILL CONTINUE TO MONITOR.
[2020-11-20 08:34] VITALS: BP 116/66
--- NOTE | 2020-11-20 12:57 | NUR ---
Nutrition follow-up: Diet order: full liquids PO intake ~50% of some meals Pt spiked 106 degree fever overnight Labs reviewed Wt: 212# +BM RDN will order Glucerna Raghavendrake with meals RDN follow-up: 11/24/20
[2020-11-20 13:06] VITALS: BP 127/68
[2020-11-20 13:52] LABS: BASOPHILS 0.3 % (0-2); EOSINOPHILS 1.3 % (0-7); HEMATOCRIT 33.9 % (42.0-54.0); HEMOGLOBIN 10.7 g/dL (13.5-17.5); IMMATURE GRANULOCYTES 0.8 % (0-5); MCH 31.1 pg (26.0-34.0); MCHC 31.6 g/dL (31.0-37.0); MCV 98.5 fL (80.0-100.0); MEAN PLATELET VOLUME 10.1 fL (7.4-10.4); MONOCYTES 9.3 % (2-11); NEUTROPHIL ABS# 4.91 10x3/uL (1.78-5.38); NEUTROPHILS 77.3 % (40-80); PLATELET COUNT 230 10x3/uL (130-400); RBC 3.44 10x6/uL (4.20-6.10); RDW 13.1 % (11.5-14.5); WBC 6.4 10x3/uL (4.8-10.8)
[2020-11-20 13:56] LABS: ALBUMIN 2.3 g/dL (3.4-5.0); ANION GAP 13.6 mmol/L (8-16); BILIRUBIN - TOTAL 0.24 mg/dL (0.2-1.3); CALCIUM 8.4 mg/dL (8.5-10.1); CARBON DIOXIDE 25.3 mmol/L (21.0-32.0); CREATININE - SERUM 1.2 mg/dL (0.6-1.3); POTASSIUM - SERUM 3.9 mmol/L (3.5-5.1); PROTEIN - SERUM 6.2 g/dL (6.4-8.2)
--- NOTE | 2020-11-20 15:22 | NUR ---
NO FLUID IN DRAINAGE BAGS TO COLLECT FOR SAMPLE AT THIS TIME. DR NEAL IN ROOM AND AWARE.
[2020-11-20 17:11] VITALS: BP 143/77
[2020-11-20 19:40] VITALS: BP 137/72
--- NOTE | 2020-11-21 00:40 | NUR ---
I have reviewed this patient and I concur with the Shift Assessment completed by the Licensed Practical Nurse today this shift.
[2020-11-21 00:54] VITALS: BP 123/72
[2020-11-21 05:00] VITALS: BP 139/68
[2020-11-21 07:14] LABS: ALKALINE PHOSPHATASE 68 U/L (30-120); BILIRUBIN - TOTAL 0.23 mg/dL (0.2-1.3); CALCIUM 8.6 mg/dL (8.5-10.1); CARBON DIOXIDE 23.2 mmol/L (21.0-32.0); CHLORIDE - SERUM 100 mmol/L (98-107); POTASSIUM - SERUM 3.8 mmol/L (3.5-5.1); PROTEIN - SERUM 6.2 g/dL (6.4-8.2); SODIUM 134 mmol/L (136-145); UREA NITROGEN 9 mg/dL (7-18); eGFR NON AFRICAN AMERICAN 81 mL/min (90-120)
[2020-11-21 07:15] LABS: ALT (SGPT) 8 U/L (10-68); CALC OSMOLALITY 273 mosm/kg (275-300); GLUCOSE 220 mg/dL (74-106)
--- NOTE | 2020-11-21 07:38 | NUR ---
PT RESTING IN BED WITH EYES CLOSED, NO S/S OF DISTRESS AT THIS TIME. IV LOCATED TO LEFT FOREARM CURRENTLY RUNNING PROCAL @ 100, AND NS @ KVO. WILL CONT TO MONITOR.
[2020-11-21 07:39] LABS: BASOPHILS 0.2 % (0-2); EOSINOPHILS 0.8 % (0-7); HEMATOCRIT 29.1 % (42.0-54.0); HEMOGLOBIN 9.6 g/dL (13.5-17.5); IMMATURE GRANULOCYTES 0.3 % (0-5); MCH 31.4 pg (26.0-34.0); MEAN PLATELET VOLUME 10.1 fL (7.4-10.4); MONOCYTES 8.3 % (2-11); NEUTROPHIL ABS# 4.81 10x3/uL (1.78-5.38); NEUTROPHILS 80.4 % (40-80); PLATELET COUNT 199 10x3/uL (130-400); RBC 3.06 10x6/uL (4.20-6.10); RDW 12.8 % (11.5-14.5)
[2020-11-21 07:48] LABS: MCV 95.1 fL (80.0-100.0)
[2020-11-21 08:18] VITALS: BP 125/68
[2020-11-21 11:20] VITALS: BP 131/68
[2020-11-21 16:55] VITALS: BP 123/76
[2020-11-22] VITALS: BP 132/73
--- NOTE | 2020-11-22 00:15 | NUR ---
I have reviewed this patient and I concur with the Shift Assessment completed by the Licensed Practical Nurse today this shift.
[2020-11-22 04:00] VITALS: BP 127/71
[2020-11-22 06:04] LABS: BASOPHILS 0.2 % (0-2); EOSINOPHILS 0.9 % (0-7); HEMATOCRIT 30.1 % (42.0-54.0); HEMOGLOBIN 9.8 g/dL (13.5-17.5); IMMATURE GRANULOCYTES 0.5 % (0-5); LYMPHOCYTE ABS# 0.78 10x3/uL (1.32-3.57); LYMPHOCYTES 12.1 % (15-50); MCH 30.7 pg (26.0-34.0); MCHC 32.6 g/dL (31.0-37.0); MCV 94.4 fL (80.0-100.0); MEAN PLATELET VOLUME 9.7 fL (7.4-10.4); MONOCYTES 8.1 % (2-11); NEUTROPHIL ABS# 5.02 10x3/uL (1.78-5.38); NEUTROPHILS 78.2 % (40-80); PLATELET COUNT 189 10x3/uL (130-400); RBC 3.19 10x6/uL (4.20-6.10); RDW 12.7 % (11.5-14.5); WBC 6.4 10x3/uL (4.8-10.8)
[2020-11-22 06:19] LABS: ALBUMIN 1.9 g/dL (3.4-5.0); ALKALINE PHOSPHATASE 71 U/L (30-120); ALT (SGPT) 9 U/L (10-68); BILIRUBIN - TOTAL 0.16 mg/dL (0.2-1.3); CALC OSMOLALITY 279 mosm/kg (275-300); CALCIUM 8.3 mg/dL (8.5-10.1); CARBON DIOXIDE 26.6 mmol/L (21.0-32.0); CHLORIDE - SERUM 101 mmol/L (98-107); GLUCOSE 238 mg/dL (74-106); POTASSIUM - SERUM 3.9 mmol/L (3.5-5.1); PROTEIN - SERUM 6.4 g/dL (6.4-8.2); SODIUM 137 mmol/L (136-145); UREA NITROGEN 8 mg/dL (7-18); eGFR NON AFRICAN AMERICAN 81 mL/min (90-120)
--- NOTE | 2020-11-22 07:23 | NUR ---
RECIEVED BEDSIDE REPORT. MOTHER AT BEDSIDE. BED LOW POSITION, CALL LIGHT IN REACH. WILL CONTINUE TO MONITOR.
--- NOTE | 2020-11-22 08:37 | NUR ---
TO CAT SCAN VIA BED AT THIS TIME.
--- NOTE | 2020-11-22 09:00 | NUR ---
BACK TO ROOM. MOTHER AT BEDSIDE.
[2020-11-22 10:07] VITALS: BP 125/70
--- NOTE | 2020-11-22 14:57 | NUR ---
RESTING, AROUSES TO VOICE. DENIES NEEDS AT THIS TIME. BED LOW POSITION, CALL LIGHT IN REACH. WILL CONTINUE TO MONITOR.
[2020-11-22 15:00] VITALS: BP 107/63
[2020-11-22 18:28] VITALS: BP 119/68
[2020-11-22 20:00] VITALS: BP 121/66
[2020-11-23] VITALS: BP 111/57
--- NOTE | 2020-11-23 01:02 | NUR ---
I have reviewed this patient and I concur with the Shift Assessment completed by the Licensed Practical Nurse today this shift.
[2020-11-23 04:00] VITALS: BP 148/75
--- NOTE | 2020-11-23 07:26 | NUR ---
RECIEVED BEDSIDE REPORT. IN BED, AROUSES TO VOICE. MOTHER AT BEDSIDE. DENIES NEEDS AT THIS TIME. BED LOW POSITION, CALL LIGHT IN REACH. WILL CONTINUE TO MONITOR.
[2020-11-23 07:57] LABS: ALBUMIN 2.1 g/dL (3.4-5.0); ALKALINE PHOSPHATASE 91 U/L (30-120); ALT (SGPT) 13 U/L (10-68); BILIRUBIN - TOTAL 0.16 mg/dL (0.2-1.3); CALC OSMOLALITY 279 mosm/kg (275-300); CALCIUM 8.1 mg/dL (8.5-10.1); CARBON DIOXIDE 23.9 mmol/L (21.0-32.0); CHLORIDE - SERUM 101 mmol/L (98-107); CREATININE - SERUM 0.8 mg/dL (0.6-1.3); GLUCOSE 224 mg/dL (74-106); POTASSIUM - SERUM 4.2 mmol/L (3.5-5.1); PROTEIN - SERUM 5.8 g/dL (6.4-8.2); SODIUM 137 mmol/L (136-145); UREA NITROGEN 10 mg/dL (7-18); eGFR NON AFRICAN AMERICAN > 90 mL/min (90-120)
[2020-11-23 08:07] LABS: BASOPHILS 0.2 % (0-2); EOSINOPHILS 0.7 % (0-7); HEMATOCRIT 29.9 % (42.0-54.0); IMMATURE GRANULOCYTES 0.4 % (0-5); LYMPHOCYTE ABS# 0.57 10x3/uL (1.32-3.57); LYMPHOCYTES 10.2 % (15-50); MCH 31.3 pg (26.0-34.0); MCHC 33.4 g/dL (31.0-37.0); MCV 93.7 fL (80.0-100.0); MONOCYTES 7.9 % (2-11); NEUTROPHIL ABS# 4.49 10x3/uL (1.78-5.38); NEUTROPHILS 80.6 % (40-80); PLATELET COUNT 207 10x3/uL (130-400); RBC 3.19 10x6/uL (4.20-6.10); RDW 12.7 % (11.5-14.5); WBC 5.6 10x3/uL (4.8-10.8)
[2020-11-23 10:41] VITALS: BP 144/67
[2020-11-23 15:25] VITALS: BP 144/67
[2020-11-23 20:00] VITALS: BP 142/81
[2020-11-24 04:00] VITALS: BP 129/70
[2020-11-24 05:27] LABS: BASOPHILS 0.2 % (0-2); EOSINOPHILS 1.2 % (0-7); HEMATOCRIT 30.1 % (42.0-54.0); HEMOGLOBIN 9.9 g/dL (13.5-17.5); IMMATURE GRANULOCYTES 0.3 % (0-5); LYMPHOCYTE ABS# 0.83 10x3/uL (1.32-3.57); LYMPHOCYTES 14.4 % (15-50); MCHC 32.9 g/dL (31.0-37.0); MCV 94.4 fL (80.0-100.0); MEAN PLATELET VOLUME 9.9 fL (7.4-10.4); MONOCYTES 8.7 % (2-11); NEUTROPHIL ABS# 4.32 10x3/uL (1.78-5.38); NEUTROPHILS 75.2 % (40-80); PLATELET COUNT 217 10x3/uL (130-400); RBC 3.19 10x6/uL (4.20-6.10); RDW 12.7 % (11.5-14.5); WBC 5.8 10x3/uL (4.8-10.8)
--- NOTE | 2020-11-24 05:33 | NUR ---
I have reviewed this patient and I concur with the Shift Assessment completed by the Licensed Practical Nurse today this shift.
[2020-11-24 05:46] LABS: ALBUMIN 2.1 g/dL (3.4-5.0); ALKALINE PHOSPHATASE 85 U/L (30-120); ALT (SGPT) 12 U/L (10-68); BILIRUBIN - TOTAL 0.14 mg/dL (0.2-1.3); CALC OSMOLALITY 275 mosm/kg (275-300); CALCIUM 8.6 mg/dL (8.5-10.1); CARBON DIOXIDE 25.1 mmol/L (21.0-32.0); CHLORIDE - SERUM 101 mmol/L (98-107); GLUCOSE 230 mg/dL (74-106); MAGNESIUM - SERUM 1.8 mg/dL (1.8-2.4); POTASSIUM - SERUM 4.3 mmol/L (3.5-5.1); PROTEIN - SERUM 6.6 g/dL (6.4-8.2); SODIUM 135 mmol/L (136-145); UREA NITROGEN 10 mg/dL (7-18); eGFR NON AFRICAN AMERICAN 81 mL/min (90-120)
--- NOTE | 2020-11-24 07:00 | NUR ---
RECEIVED BEDSIDE REPORT AND ASSUMED CARE OF PATIENT. PATIENT ALERT AND ORIENTED IN BED, MOTHER AT BEDSIDE. C/O OF RIGHT LOWER ABDOMINAL PAIN RATES 7/10. PRN DILUADID GIVEN IVP WITH NS FLUSH. IV RIGHT AC INFUSING PROCAL AT 100 ML/HR AND NS AT TKO WITH NO S/S OF INFILTRATION. SWAB CAPS IN PLACE. BBS - CLEAR AND EQUAL, ON RA. HEAD TO TO ASSESSMENT COMPLETED. DRAINS TIMES TWO NOTED TO RIGHT LATERAL SIDE WITH NO DRAINAGE AT PRESENT.
--- NOTE | 2020-11-24 08:28 | NUR ---
PATIENT RATES PAIN 7/10 AFTER DILUADID IVP. GIVEN PRN ORAL PAIN MED. WILL CONTINUE TO MONITOR. MORNING MEDS PER MAR AND BREAKFAST TRAY PROVIDED AND SET UP.
[2020-11-24 08:50] VITALS: BP 117/62
--- NOTE | 2020-11-24 09:45 | NUR ---
PATIENT RESTING QUIETLY, EYES CLOSED, ANTIBIOTIC GIVEN PER OCT.
--- NOTE | 2020-11-24 12:47 | NUR ---
PATIENT BACK FROM IR. ALERT AND ORIENTED X 4.
[2020-11-24 13:10] VITALS: BP 115/64
--- NOTE | 2020-11-24 14:35 | NUR ---
Nutrition reassessment: Pt eating brekfast during RD visit. Pts diet has advanced to consistent CHO. Pt reports appetite is improving since diet advanced. Pt ate a good breakfast. Labs reviewed; Glucose under poor control Ht: 6'2" Wt: 212# Nutritional needs remain the same as initial assessment from 11/16/20 Procalamine PPN continues @ 50 ml/hr Nutrition diagnosis: Continues as inadequate oral intake R/T colitis AEB pt has been on full liquid diet with poor po intake. Nutrition goals: - PO intake =/> 75% of meals, snacks - Meet est fluid needs - STable wt Interventions: Will provide food choices with selective menus and honor food preferences. Will offer Glucerna Shake nutritional supplement. RDN follow-up: 11/26/20
--- NOTE | 2020-11-24 15:01 | NUR ---
PATIENT TO IR FOR ABCESSOGRAM.
--- NOTE | 2020-11-24 16:05 | NUR ---
PATIENT BACK FROM IR.
[2020-11-24 18:08] LABS: AEROBE ID Final report (())
[2020-11-24 20:00] VITALS: BP 121/72
[2020-11-25] VITALS: BP 126/69
[2020-11-25 04:00] VITALS: BP 130/75
[2020-11-25 06:46] LABS: BASOPHILS 0.4 % (0-2); EOSINOPHILS 1.3 % (0-7); HEMATOCRIT 31.3 % (42.0-54.0); HEMOGLOBIN 10.1 g/dL (13.5-17.5); IMMATURE GRANULOCYTES 0.4 % (0-5); LYMPHOCYTE ABS# 0.87 10x3/uL (1.32-3.57); LYMPHOCYTES 16.2 % (15-50); MCH 30.8 pg (26.0-34.0); MCHC 32.3 g/dL (31.0-37.0); MCV 95.4 fL (80.0-100.0); MEAN PLATELET VOLUME 10.1 fL (7.4-10.4); MONOCYTES 8.6 % (2-11); NEUTROPHIL ABS# 3.92 10x3/uL (1.78-5.38); NEUTROPHILS 73.1 % (40-80); PLATELET COUNT 239 10x3/uL (130-400); RBC 3.28 10x6/uL (4.20-6.10); WBC 5.4 10x3/uL (4.8-10.8)
[2020-11-25 06:48] LABS: ALBUMIN 2.3 g/dL (3.4-5.0); BILIRUBIN - TOTAL 0.18 mg/dL (0.2-1.3); CALCIUM 8.7 mg/dL (8.5-10.1); CARBON DIOXIDE 26.1 mmol/L (21.0-32.0); CREATININE - SERUM 1.1 mg/dL (0.6-1.3); MAGNESIUM - SERUM 1.9 mg/dL (1.8-2.4); POTASSIUM - SERUM 4.1 mmol/L (3.5-5.1); PROTEIN - SERUM 6.8 g/dL (6.4-8.2)
--- NOTE | 2020-11-25 08:32 | NUR ---
RESTING IN BED WITH EYES CLOSED, EASILY AROUSED TO SPEECH. IV LOCATED TO RIGHT FA CURRENTLY RUNNING PROCAL @ 50, NS @ KVO. NO S/S OF DISTRESS, DENIES CURRENT NEEDS, WILL CONT TO MONITOR.
[2020-11-25 08:56] VITALS: BP 111/73
[2020-11-25 11:00] LABS: INR 1.39 (0.85-1.17); PROTIME 15.8 SECONDS (11.6-15.0)
--- NOTE | 2020-11-25 11:15 | NUR ---
EKG COMPLETE, SCANNED, AND ON THE CHART.
[2020-11-25 12:59] VITALS: BP 110/69
--- NOTE | 2020-11-25 15:56 | MORECARE ---
CASE MANAGEMENT DISCHARGE SUMMARY PATIENT: ZENOBIA TREJO UNIT: [id number] ADM DATE: 11/13/20 AGE: 60 : 64 SEX: M ROOM/BED: D.2225 AUTHOR: ROBERT WEST PHYSICIAN: REFERRING PHYSICIAN: MICHAEL SAN MD DATE OF SERVICE: 11/25/20 Case Management Discharge Planning Summary DCP REVIEW SUMMARY ANTICIPATED D/C DATE: EXPECTED LOS : CASE STATUS: DCP Initiated INITIAL REVIEW: 11/13/2020 INITIAL REVIEWER: Lela Wall FINAL DISCHARGE DISPOSITION: : FINAL REVIEWER: FINAL REVIEW DATE: DCP Focus Questions & Answers QUESTION: ANSWER : PATIENT: ZENOBIA TREJO ENCOUNTER: [id number] MEDICAL RECORD#: [id number] ADMISSION DATE: 11/13/2020 DISCHARGE DATE: ATTENDING MD: KOMAL HAYS : AGE: 60 MARITAL STATUS: D DC PLAN ID: [id number] FACILITY: [facility] PRINTED ON: 11/25/20 15:56 CT All edits/amendments must be made on the electronic document DICTATION DATE: 11/25/20 1556 SUPERVISOR LENDING ACTIVITIES: DM 11/25/20 1556 RPT#: [id number] DC DATE: STATUS: ADM IN [facility] [address] [place] [address] END OF REPORT
--- NOTE | 2020-11-25 16:09 | MORECARE ---
CASE MANAGEMENT DISCHARGE SUMMARY PATIENT: ZENOBIA TREJO UNIT: [id number] ADM DATE: 11/13/20 AGE: 60 : 64 SEX: M ROOM/BED: D.2225 AUTHOR: BRETT,DOC PHYSICIAN: REFERRING PHYSICIAN: MICHAEL SAN MD DATE OF SERVICE: 11/25/20 Case Management Discharge Planning Summary COMMENTS ENTERED DATE: 11/25/20 16:03 CT COMMENT TYPE: Discharge Planning REVIEWER: Lela Wall CM met with patient and his mother Randa at bedside after obtaining verbal consent. CM discussed availability / needs of home health, REHAB and medical equipment. States he is having surgery tomorrow and he may need Home health. Unsure until after surgery. Lives at home with his mother. CM will reassess after surgery. DCP REVIEW SUMMARY ANTICIPATED D/C DATE: EXPECTED LOS : CASE STATUS: DCP Initiated INITIAL REVIEW: 11/13/2020 INITIAL REVIEWER: Lela Wall FINAL DISCHARGE DISPOSITION: : FINAL REVIEWER: FINAL REVIEW DATE: DCP Focus Questions & Answers DCP Screen QUESTION: ANSWER High Risk Factors: : None Walking limitation: Patient stated self rated walking limitation present? : No Age: : 47 - 66 Prior living environment: : Lives with others Disability ranking: : Grade 3: Moderate disability DCP Evaluation QUESTION: ANSWER Family / Caregiver's ability to cope with chronic illness: : a. Adequate (ability to meet patient's medical needs, ensures patient attends medical appts.) Patient's current cognitive status: : *Oriented to person, place, situation, time and present Patient's ability to cope with chronic illness : d. No chronic illness Functional screen assessment: : New onset in weakness or paralysis Family / Caregiver's ability to cope with chronic illness: : a. Adequate (ability to meet patient's medical needs, ensures patient attends medical appts.) Physical Status: : Independent with ADL's Is there a likelihood that the patient will require additional services to return to the preadmission environment? : Yes Living Arrangements: : Home with Parents Results of this evaluation have been discussed with: : Family Baseline cognitive status: : *Oriented to person, place, situation, time and present Comments: : MAY NEED HOME HEALTH AT DISCHARGE. Pharmacy name(s): : [facility] Would patient like to participate in any Care Coordination programs (if applicable): : Not applicable Mental health screen: : No mental health history DCP Re-evaluation QUESTION: ANSWER Would patient like to participate in any Care Coordination programs (if applicable): : Not applicable PATIENT: ZENOBIA TREJO ENCOUNTER: [id number] MEDICAL RECORD#: [id number] ADMISSION DATE: 11/13/2020 DISCHARGE DATE: ATTENDING MD: KOMAL HAYS : AGE: 60 MARITAL STATUS: D DC PLAN ID: [id number] FACILITY: [facility] PRINTED ON: 11/25/20 16:09 CT All edits/amendments must be made on the electronic document DICTATION DATE: 11/25/201608 OPTICAL MANUFACTURING TECHNICIAN: ROBERTO 11/25/201608 RPT#: [id number] DC DATE: STATUS: ADM IN [facility] [address] [place] [address] END OF REPORT
[2020-11-25 18:03] VITALS: BP 121/70
[2020-11-25 20:00] VITALS: BP 132/75
--- NOTE | 2020-11-25 22:07 | NUR ---
PT RESTING IN BED, WITH FAMILY MEMBER AT BEDSIDE. ALERT AND ORIENTED. ABLE TO MAKE WANTS AND NEEDS KNOWN TO STAFF CLEARLY. COMPLAINS OF PAIN TO RIGHT FLANK AREA. NO OTHER DISTRESS NOTED AT THIS TIME. BED IN LOWEST POSITION WITH CALL QUARLES LIGHT IN REACH.
[2020-11-26] VITALS: BP 132/77
[2020-11-26 04:00] VITALS: BP 113/66
[2020-11-26 06:34] LABS: BASOPHILS 0.2 % (0-2); EOSINOPHILS 1.2 % (0-7); HEMATOCRIT 32.8 % (42.0-54.0); HEMOGLOBIN 10.9 g/dL (13.5-17.5); IMMATURE GRANULOCYTES 0.3 % (0-5); LYMPHOCYTE ABS# 0.93 10x3/uL (1.32-3.57); LYMPHOCYTES 15.8 % (15-50); MCH 31.6 pg (26.0-34.0); MCHC 33.2 g/dL (31.0-37.0); MCV 95.1 fL (80.0-100.0); MONOCYTES 8.6 % (2-11); NEUTROPHIL ABS# 4.36 10x3/uL (1.78-5.38); NEUTROPHILS 73.9 % (40-80); PLATELET COUNT 241 10x3/uL (130-400); RBC 3.45 10x6/uL (4.20-6.10); RDW 13.1 % (11.5-14.5); WBC 5.9 10x3/uL (4.8-10.8)
[2020-11-26 06:47] LABS: ALBUMIN 2.5 g/dL (3.4-5.0); BILIRUBIN - TOTAL 0.2 mg/dL (0.2-1.3); CALCIUM 9.2 mg/dL (8.5-10.1); CARBON DIOXIDE 26.3 mmol/L (21.0-32.0); CREATININE - SERUM 1.1 mg/dL (0.6-1.3); MAGNESIUM - SERUM 1.9 mg/dL (1.8-2.4); POTASSIUM - SERUM 4.3 mmol/L (3.5-5.1); PROTEIN - SERUM 7.3 g/dL (6.4-8.2)
--- NOTE | 2020-11-26 07:31 | NUR ---
ALERT AND ORIENTED. ASSESSMENT COMPLETE. DENIES NEEDS. BED LOW. CALL QUARLES AND PERSONAL ITEMS IN REACH. WILL CONTINUE TO MONITOR.
[2020-11-26 08:42] VITALS: BP 129/73
--- NOTE | 2020-11-26 12:52 | NUR ---
PATIENT DOES NOT WANT TO WEAR TELEMETRY ANY LONGER. ELECTROLYTE IMBALANCE HAS RESOLVED. SPOKE WITH DR NEAL AT [facility] WHO STATES OK TO DC TELE.
--- NOTE | 2020-11-26 12:57 | NUR ---
PER DR NEAL, START GOLYTELY AFTER ERCP TODAY BUT GIVE PO ABX SCHEDULED PRIOR TO PROCEDURE.
--- NOTE | 2020-11-26 13:34 | NUR ---
Nutrition follow-up: Pt NPO for ERCP today PO intake of consistent CHO diet has been ~50% of some meals Labs reviewed Wt: 206# RDN will follow-up: 11/30/20
[2020-11-26 14:04] VITALS: BP 126/75
--- NOTE | 2020-11-26 14:46 | NUR ---
PATIENT TAKEN FOR PROCEDURE.
--- NOTE | 2020-11-26 18:50 | NUR ---
PATIENT RETURNED FROM PROCEDURE. VSS. GOLYTELY AND CUP GIVEN TO PATIENT WITH INSTRUCTIONS. DENIES QUESTIONS. URINAL PROVIDED TO PATIENT PER REQUEST. WILL CONTINUE TO MONITOR.
--- NOTE | 2020-11-26 20:00 | NUR ---
ALERT RESTING IN BED, REPORTSZ HAVING SOME PAIN SINCE GETTING BACK FROM PROCEDURE, INSTRUCTED NEED TO DRINK GOLYTELY BEFORE MN AND NOTHING TO DRINK AFTER MN, MOTHER AT BEDSIDE, BOTH VERBALIZE UNDERSTANDING, SEE SHIFT ASSESSMENT, CALL LIGHT IN REACH
[2020-11-26 21:36] VITALS: BP 116/73
[2020-11-27] VITALS (13 sets, daily range): BP systolic 93–163; BP diastolic 60–83
[2020-11-27 06:55] LABS: BASOPHILS 0.3 % (0-2); EOSINOPHILS 0.8 % (0-7); HEMATOCRIT 33.7 % (42.0-54.0); IMMATURE GRANULOCYTES 0.3 % (0-5); LYMPHOCYTE ABS# 1.28 10x3/uL (1.32-3.57); LYMPHOCYTES 16.2 % (15-50); MCH 30.9 pg (26.0-34.0); MCHC 32.6 g/dL (31.0-37.0); MCV 94.7 fL (80.0-100.0); MEAN PLATELET VOLUME 10.1 fL (7.4-10.4); MONOCYTES 6.6 % (2-11); NEUTROPHIL ABS# 5.99 10x3/uL (1.78-5.38); NEUTROPHILS 75.8 % (40-80); PLATELET COUNT 258 10x3/uL (130-400); RBC 3.56 10x6/uL (4.20-6.10); RDW 13.4 % (11.5-14.5)
[2020-11-27 07:01] LABS: WBC 7.9 10x3/uL (4.8-10.8)
[2020-11-27 07:02] LABS: ALBUMIN 2.7 g/dL (3.4-5.0); ANION GAP 14.4 mmol/L (8-16); BILIRUBIN - TOTAL 0.28 mg/dL (0.2-1.3); CARBON DIOXIDE 25.8 mmol/L (21.0-32.0); CREATININE - SERUM 1.1 mg/dL (0.6-1.3); MAGNESIUM - SERUM 1.9 mg/dL (1.8-2.4); POTASSIUM - SERUM 4.2 mmol/L (3.5-5.1); PROTEIN - SERUM 7.5 g/dL (6.4-8.2)
--- NOTE | 2020-11-27 07:30 | NUR ---
PATIENT TO SURGERY
--- NOTE | 2020-11-27 12:41 | NUR ---
PT STATED HE IS HURTING. POINTED TO HIS ABD. EDUCATED ON LOW BP.
--- NOTE | 2020-11-27 13:00 | NUR ---
PATIENT BACK FROM OR. VS STABLE.IV INTACT. KT DRAIN, BILI DRAIN, DÍAZ, AND NGT INTACT. 2LNC. SATS 94% EYES CLOSED RESTING AT THIS TIME. INCISIONS AND DRESSING CDI. BSCDS ON AND WORKING. FAMILY AT BEDSIDE. WILL CONTINUE TO MONITOR.
--- NOTE | 2020-11-27 13:30 | NUR ---
PATIENT RESTING. IV INTACT. DR. NEAL STATED TO HOLD PROCAL FOR NOW UNTIL MAYBE TOMORROW. ALSO STATED HE ORDERED AT EDUCATIONAL SPECIALIST FOR PATIENT. PATIENT EYES CLOSED RESTING QUIETLY. FAMILY AT BEDSIDE. VS STABLE. CALL LIGHT WITHIN REACH.
[2020-11-27 14:33] LABS: HEMATOCRIT 34.5 % (42.0-54.0); HEMOGLOBIN 11.2 g/dL (13.5-17.5); LYMPHOCYTE ABS# 0.98 10x3/uL (1.32-3.57); MCH 31.4 pg (26.0-34.0); MCHC 32.5 g/dL (31.0-37.0); MCV 96.6 fL (80.0-100.0); MEAN PLATELET VOLUME 9.6 fL (7.4-10.4); NEUTROPHIL ABS# 26.08 10x3/uL (1.78-5.38); PLATELET COUNT 378 10x3/uL (130-400); RBC 3.57 10x6/uL (4.20-6.10); RDW 13.7 % (11.5-14.5); WBC 28.3 10x3/uL (4.8-10.8)
--- NOTE | 2020-11-27 14:45 | NUR ---
PATIENT IN BED WITH EYES CLOSED. DRAINS, DÍAZ, AND NGT INTACT. VS STABLE. NO COMPLAINTS OR SIGNS OF DISTRESS. ASSISTANT ELEMENTARY TEACHER EXPLAINED EARLIER TO PATIENT. CALL LIGHTW ITHIN REACH. FAMILY AT BEDSIDE.
[2020-11-27 15:17] LABS: LYMPHOCYTES 4 % (15-50); MONOCYTES 4 % (2-11); NEUTROPHILS 84 % (40-80)
[2020-11-27 15:18] LABS: PLATELET ESTIMATE NORMAL
[2020-11-27 15:29] LABS: ALBUMIN 2.4 g/dL (3.4-5.0); BILIRUBIN - TOTAL 0.5 mg/dL (0.2-1.3); CALCIUM 8.1 mg/dL (8.5-10.1); CARBON DIOXIDE 21.9 mmol/L (21.0-32.0); PROTEIN - SERUM 6.6 g/dL (6.4-8.2)
[2020-11-27 15:30] LABS: ANION GAP 17.5 mmol/L (8-16); CREATININE - SERUM 1.5 mg/dL (0.6-1.3); POTASSIUM - SERUM 5.4 mmol/L (3.5-5.1)
--- NOTE | 2020-11-27 16:00 | NUR ---
PATIENT IN BED WITH EYES CLOSED RESTING QUIETLY. NO COMPLAINTS OR SIGNS OF DISTRESS. FAMILY AT BEDSIDE. CALL LIGHT WITHIN REACH.
[2020-11-27 16:09] LABS: AEROBE ID Final report (())
--- NOTE | 2020-11-27 17:12 | NUR ---
PATIENT TEMP 101.5. PATIENT AWAKE AND DID IS 10 TIMES AT THIS TIME WITH ASSIST. ALSO GAVE TYLENOL IV ORDERED EARLY. PATIENT HAS NO COMPLAINTS OR SIGNS OF DISTRESS. EXPLAINED TO DO IS WHILE AWAKE 10 X'S AN HOUR. VERBALIZED UNDERSTANDING. CALL LIGHT WITHIN REACH.
--- NOTE | 2020-11-27 18:45 | NUR ---
PATIENT IN BED WITH IV INTACT. NO COMPLAINTS OR SIGNS OF DISTRESS. TEMP 97.8. DRAINS AND IV INTACT. DÍAZ AND NGT INTACT. FAMILY AT BEDSIDE. CALL LIGHT WITHIN REACH.
--- NOTE | 2020-11-28 03:00 | NUR ---
I have reviewed this patient and I concur with the Shift Assessment completed by the Licensed Practical Nurse today this shift.
[2020-11-28 05:12] LABS: BASOPHILS 0.1 % (0-2); EOSINOPHILS 0 % (0-7); HEMATOCRIT 34.6 % (42.0-54.0); HEMOGLOBIN 11.3 g/dL (13.5-17.5); IMMATURE GRANULOCYTES 0.5 % (0-5); LYMPHOCYTE ABS# 1.34 10x3/uL (1.32-3.57); LYMPHOCYTES 5.9 % (15-50); MCH 30.9 pg (26.0-34.0); MCHC 32.7 g/dL (31.0-37.0); MCV 94.5 fL (80.0-100.0); MEAN PLATELET VOLUME 10.1 fL (7.4-10.4); MONOCYTES 6.2 % (2-11); NEUTROPHIL ABS# 19.81 10x3/uL (1.78-5.38); NEUTROPHILS 87.3 % (40-80); PLATELET COUNT 387 10x3/uL (130-400); RBC 3.66 10x6/uL (4.20-6.10); RDW 13.8 % (11.5-14.5); WBC 22.7 10x3/uL (4.8-10.8)
[2020-11-28 05:42] LABS: ALBUMIN 2.2 g/dL (3.4-5.0); BILIRUBIN - TOTAL 0.45 mg/dL (0.2-1.3); CALCIUM 8.2 mg/dL (8.5-10.1); CARBON DIOXIDE 18.8 mmol/L (21.0-32.0); MAGNESIUM - SERUM 1.7 mg/dL (1.8-2.4); PROTEIN - SERUM 6.6 g/dL (6.4-8.2)
[2020-11-28 05:43] LABS: CREATININE - SERUM 2.2 mg/dL (0.6-1.3)
[2020-11-28 05:44] LABS: ANION GAP 18.4 mmol/L (8-16); POTASSIUM - SERUM 6.2 mmol/L (3.5-5.1)
--- NOTE | 2020-11-28 07:15 | NUR ---
PT IN A LOT OF PAIN UPON INITIAL ASSESSMENT. IV FLUIDS WERE OFF FOR SOME REASON. THESE WERE RESTARTED. WILL MONITOR PAIN/O2 LEVELS. PT MOTHER TD IN ROOM. NO FURTHER NEEDS AT THIS TIME. SEE ASSESSMENT. CL IN REACH. WCTM
[2020-11-28 09:15] VITALS: BP 120/75
--- NOTE | 2020-11-28 09:30 | NUR ---
PAIN HAS EASED PT STATES. TRACER BULLET SECTION SUPERVISOR SYRINGE EXCHANGED PER EMAR. CL IN REACH. REQUESTING ICE CHIPS. WILL ASK DR CUMMINGS. MEDS GIVEN PER EMAR. WCTM
[2020-11-28 11:46] LABS: ANION GAP 15.5 mmol/L (8-16); CALCIUM 8.6 mg/dL (8.5-10.1); CARBON DIOXIDE 22.1 mmol/L (21.0-32.0); CREATININE - SERUM 2.1 mg/dL (0.6-1.3); POTASSIUM - SERUM 5.6 mmol/L (3.5-5.1)
--- NOTE | 2020-11-28 12:15 | NUR ---
DRESSING CHANGED TO MID ABDOMEN. DARLIN AND INCISION CDI AND WELL APPROXIMATED. CL IN REACH. PAIN TO THE SLIGHTEST TOUCH. WCTM
[2020-11-28 13:50] VITALS: BP 116/68
[2020-11-28 18:34] VITALS: BP 115/62
[2020-11-28 20:00] VITALS: BP 116/76
[2020-11-29] VITALS: BP 124/73
[2020-11-29 04:00] VITALS: BP 129/70
[2020-11-29 07:20] LABS: HEMATOCRIT 33.7 % (42.0-54.0); HEMOGLOBIN 10.3 g/dL (13.5-17.5); LYMPHOCYTE ABS# 1.22 10x3/uL (1.32-3.57); MCH 29.4 pg (26.0-34.0); MCHC 30.6 g/dL (31.0-37.0); MCV 96.3 fL (80.0-100.0); MEAN PLATELET VOLUME 10.1 fL (7.4-10.4); NEUTROPHIL ABS# 20.16 10x3/uL (1.78-5.38); PLATELET COUNT 303 10x3/uL (130-400); RDW 14.3 % (11.5-14.5); WBC 22.7 10x3/uL (4.8-10.8)
--- NOTE | 2020-11-29 07:30 | NUR ---
PT ALERT AND ORIENTED. NO NEEDS AT THIS TIME. WCTM
[2020-11-29 07:35] LABS: ALBUMIN 1.9 g/dL (3.4-5.0); ANION GAP 17.4 mmol/L (8-16); BILIRUBIN - TOTAL 0.37 mg/dL (0.2-1.3); CALCIUM 8.2 mg/dL (8.5-10.1); CARBON DIOXIDE 20.8 mmol/L (21.0-32.0); CREATININE - SERUM 1.6 mg/dL (0.6-1.3); POTASSIUM - SERUM 5.2 mmol/L (3.5-5.1); PROTEIN - SERUM 5.4 g/dL (6.4-8.2); VANCOMYCIN - RANDOM 8.4 ug/mL (10.0-20.0)
[2020-11-29 07:59] LABS: EOSINOPHILS 1 % (0-7); LYMPHOCYTES 6 % (15-50); NEUTROPHILS 92 % (40-80)
[2020-11-29 08:00] LABS: ANISOCYTOSIS OCC; PLATELET ESTIMATE NORMAL
[2020-11-29 10:07] VITALS: BP 132/75
--- NOTE | 2020-11-29 13:00 | NUR ---
NG TUBE PULLED UPON PT AGREEMENT WITH DR CUMMINGS. PT WALKED LAP AROUND NURSING STATION. CL IN REACH. FRESH LINENS PROVIDED. EGG CRATE PLACED ON BED FOR COMFORT. MEPILEX PLACED ON "GANGLION CYSTS" ON PT BACK AND MEPILEX PLACE ON PT SPINE WHERE THERE IS AN OPEN SORE. CL IN REACH. SCD'S ON. WCTM
[2020-11-29 14:15] VITALS: BP 142/70
--- NOTE | 2020-11-29 16:38 | NUR ---
PT RESTING. NO NEEDS AT THIS TIME. CL IN REACH. NO FURTHER NEEDS AT THIS TIME.
[2020-11-29 18:03] VITALS: BP 136/75
[2020-11-29 20:00] VITALS: BP 138/77
[2020-11-30] VITALS: BP 132/77
[2020-11-30 08:43] VITALS: BP 143/76
--- NOTE | 2020-11-30 09:05 | NUR ---
ALERT AND ORIENTED. ASSESSMENT COMPLETE. DENIES NEEDS. BED LOW. CALL QUARLES AND PERSONAL ITEMS IN REACH. WILL CONTINUE TO MONITOR.
[2020-11-30 10:05] LABS: ALBUMIN 1.7 g/dL (3.4-5.0); BILIRUBIN - TOTAL 0.3 mg/dL (0.2-1.3); CALCIUM 8.3 mg/dL (8.5-10.1); CARBON DIOXIDE 20.1 mmol/L (21.0-32.0); MAGNESIUM - SERUM 1.9 mg/dL (1.8-2.4); PHOSPHOROUS 3.5 mg/dL (2.5-4.9)
[2020-11-30 10:06] LABS: ANION GAP 17.2 mmol/L (8-16); CREATININE - SERUM 1.1 mg/dL (0.6-1.3); POTASSIUM - SERUM 4.3 mmol/L (3.5-5.1)
[2020-11-30 10:22] LABS: BASOPHILS 0.2 % (0-2); EOSINOPHILS 0.2 % (0-7); HEMATOCRIT 24.3 % (42.0-54.0); HEMOGLOBIN 7.8 g/dL (13.5-17.5); IMMATURE GRANULOCYTES 0.4 % (0-5); LYMPHOCYTE ABS# 1.05 10x3/uL (1.32-3.57); LYMPHOCYTES 8.7 % (15-50); MCH 31.1 pg (26.0-34.0); MCHC 32.1 g/dL (31.0-37.0); MCV 96.8 fL (80.0-100.0); MEAN PLATELET VOLUME 10.1 fL (7.4-10.4); MONOCYTES 5.1 % (2-11); NEUTROPHIL ABS# 10.31 10x3/uL (1.78-5.38); NEUTROPHILS 85.4 % (40-80); PLATELET COUNT 218 10x3/uL (130-400); RBC 2.51 10x6/uL (4.20-6.10); WBC 12.1 10x3/uL (4.8-10.8)
--- NOTE | 2020-11-30 11:46 | NUR ---
REHAB PRESCREEN ORDER RECEIVED. PT IS A TRADITIONAL MEDICAID AND WE ARE UNFORTUNATELY UNABLE TO TAKE THEM TO THE INPATIENT REAHB UNIT. I HAVE LEFT A MESSAGE FOR WILEY ZAPIEN RN CM TO LET HER KNOW THIS. THANK YOU FOR THE REFERRAL SAL LAU RN CLINICAL LIAISON, INPATIENT REHAB.
--- NOTE | 2020-11-30 12:40 | OP ---
PATIENT NAME: ZENOBIA TREJO MEDICAL RECORD: [id number] :64 LOCATION:D.MS [id number] ADMISSION DATE:11/13/20 SURGEON: ELADIO NEAL MD DATE OF OPERATION: 11/27/2020 PREOPERATIVE DIAGNOSES: 1. Intra-abdominal abscess. 2. Gallstones. 3. Coloperitoneal fistula. POSTOPERATIVE DIAGNOSES: 1. Intra-abdominal abscess. 2. Gallstones. 3. Coloperitoneal fistula. PROCEDURE: 1. Laparoscopic converted to open right hemicolectomy. 2. Cholecystectomy with intraoperative cholangiogram. 3. Fluoroscopic interpretation. SURGEON: Eladio Neal MD DESCRIPTION OF PROCEDURE: The patient's abdomen was prepped and draped in sterile fashion. A skin incision was made around the umbilicus and electrocautery was used to dissect through the subcutaneous tissues and fascia and we entered the abdominal cavity. A Gelport was inserted with an 11-mm trocar within it. We insufflated the abdomen and placed a 5-mm trocar in the epigastrium and two more 5-mm trocars in the right subcostal region. The patient had a significant amount of inflammatory changes in the patient's right abdomen and near the gallbladder. We tried a tedious dissection of these adhesions, but the tissue was very difficult to maneuver and it made it very difficult to actually determine what structures were what. At this point, I just elected to perform an open laparotomy. A large midline incision was then performed and electrocautery was used to dissect through the subcutaneous tissues and fascia into the abdominal cavity. A manipulation of the tissues was used to take down all of the inflammatory adhesions that were present around the liver and surrounding structures. There was a lot of adhesion on the right pericolic gutter. As we followed the colon, it dip down at its hepatic flexure and became very swollen underneath this abscess pocket. I was able to penetrate into the abscess pocket, which had 2 drains present within it. Both of these drains had been putting out minimal output over the last few days and the cavities appeared to be fairly clean and dry. There was a scant amount of thick white mucousy type material. A tedious dissection was performed of the right colon off its lateral attachments with care taken around the hepatic flexure to elevate the colon off the retroperitoneal structures and the second portion of the duodenum. Upon doing this, there was a small deserosalization on the second portion of the duodenum and this was oversewn with Lemberted 3-0 silks. We could see the patient's appendix, which was normal with no signs of inflammatory changes. I transected the distal small bowel about 5 cm from the terminal ileum using a 55 blue load LALI stapler and the proximal transverse colon was transected with a 55 blue load LALI stapler. The mesentery was taken down with sequential clamp and tie technique using 3-0 silks and eventually the right colon was completely excised. This was sent off for permanent specimen. The 2 ends were left in discontinuity for now. I approached the patient's gallbladder and began a dome down technique using electrocautery to take the dome of the OPERATIVE REPORT [id number] ZENOBIA TREJO gallbladder down off of the gallbladder fossa. I was eventually able to dissect out an arterial structure, which was clipped proximally and distally and ligated. The cystic duct was dissected free. A clamp was placed proximally and a small opening was made in the cystic duct. A Cook cholangiocatheter was placed in the cystic duct and this was tied down. A cholangiogram was performed and it showed some stricturing of the distal common bile duct, but eventually there was emptying out into the duodenum and there were no signs of any filling defects to make us think there was a common bile duct stone. At this point, the Cook cholangiocatheter was removed and the distal common bile duct was clipped twice and was tied off with 3-0 silk. The gallbladder was completely excised at this point and sent off for permanent specimen. We irrigated out the abdomen thoroughly with normal saline and also peroxide and saline solution. Once we had irrigated out the abdomen thoroughly, then we inspected to assure there was no sign of any active bleeding, which there was none. The transverse colon and distal small bowel were reinspected and they showed good viable tissue with no signs of cyanotic changes. Enterotomies were made on both structures and two fires of the 55 blue load LALI stapler were used to make an enterocolonic anastomosis. The enterotomies were then closed off with a 30 blue load TA stapler. We placed the contents back into the abdominal cavity. Then inspected the patient's right pelvis and right gutter, there was some tubular structures that were present that did not appear to be injured, but I went ahead and had anesthesia give the patient methylene blue to assure there was no sign of any ureteral injury and there was no sign of any leakage of blue or blue-green material. At this point, one of the previously placed drains was removed and a new 19-Comoran round drain was inserted in the right lateral abdomen and circled around near the gallbladder fossa and the anastomosis. This passed through the previous abscess pockets. The midline fascia was then closed with running #1 looped PDS times 2. The wounds were irrigated out with normal saline and then reapproximated with interrupted 3-0 Vicryl and the skin incisions were all closed with marcus. COMPLICATIONS: None. CONDITION: Stable. ANESTHESIA: General endotracheal. BLOOD LOSS: 200 mL. TRANSINT:[id number] Voice Confirmation ID: [id number] DOCUMENT ID: [id number] ELADIO NEAL MD at 1240 CC: [id number] DICTATION DATE: 11/27/20 1314 CROSSWORD PUZZLE MAKER: 11/27/20 1620 ADM IN [facility] [id number] [place] [address]
--- NOTE | 2020-11-30 13:00 | NUR ---
ARJUN CAN PER ORDER.
--- NOTE | 2020-11-30 14:10 | NUR ---
NUTRITION FOLLOW UP: COMMENTS: Patient now on Procalamine @ 125 cc/hr and Clear Liquid Diet. No recent nausea/vomiting today per MD note. DIET: Clear Liquid PROCALAMINE PROVIDES: 735 kcal and 90 g protein per 24 hrs Meets: 32% kcal and 100% protein needs WEIGHT: 11/24-206 lbs BM: Small BM recorded 11/29 SIG MEDS: Probiotic, Humalog, Protonix, Lantus, Procalamine @ 125 cc/hr SIG LABS: BUN-23(H), Ca-8.3(L), Albumin-1.7(L) POC Glucose-163,176,196,174,162 RECOMMENDATIONS: -Advance diet when medically feasible/taper off Procalamine -Procalamine per Pharmacy/MD -Offer nutritional supplements with diet advancement -RD available for nutrition support recs if needed RD to follow up on 12/02
[2020-11-30 14:19] VITALS: BP 125/74
--- NOTE | 2020-11-30 16:55 | NUR ---
UNIT 1 OF 1 PRBC'S INITIATED. PATIENT IS WITHOUT REACTIONS.
[2020-11-30 17:30] VITALS: BP 117/69
--- NOTE | 2020-11-30 18:11 | NUR ---
PATIENT ASKING TO BE UNHOOKED FROM BLOOD TO USE NURSE HEAD. NO PO MEDICATIONS FOR BREAKTHROUGH PAIN. CHLOE TREVINO PAGED TO SEE IF CAN GET PO PAIN MEDICATION ORDER FOR NOW.
--- NOTE | 2020-11-30 19:45 | NUR ---
RECEIVED BEDSIDE REPORT. PT LAYING IN BED A&O X4. PIV TO RIGHT HAND, PATENT AND INFUSING, NO REDNESS OR SWELLING. DRAINS X2 TO RIGHT ABD. MIDLINE INCISION TO ABD, DRSG C/D/I. PT ABLE TO AMBUALTE WITH ASSIST X2. EDUCATED PT ON CL AND NEEDS, VERBALIZED UNDERTANDING. BED LOW, ALARM ON, CL IN REACH.
[2020-11-30 20:00] VITALS: BP 138/77
[2020-11-30 20:11] LABS: HEMATOCRIT 26.7 % (42.0-54.0); HEMOGLOBIN 8.8 g/dL (13.5-17.5)
[2020-12-01 04:00] VITALS: BP 136/83
[2020-12-01 06:23] LABS: BASOPHILS 0.2 % (0-2); HEMATOCRIT 25.5 % (42.0-54.0); HEMOGLOBIN 8.2 g/dL (13.5-17.5); IMMATURE GRANULOCYTES 0.2 % (0-5); LYMPHOCYTE ABS# 0.75 10x3/uL (1.32-3.57); MCHC 32.2 g/dL (31.0-37.0); MEAN PLATELET VOLUME 9.8 fL (7.4-10.4); MONOCYTES 6.4 % (2-11); NEUTROPHIL ABS# 5.04 10x3/uL (1.78-5.38); NEUTROPHILS 80.2 % (40-80); PLATELET COUNT 198 10x3/uL (130-400); RBC 2.73 10x6/uL (4.20-6.10)
[2020-12-01 06:27] LABS: ALBUMIN 1.6 g/dL (3.4-5.0); ANION GAP 14.4 mmol/L (8-16); BILIRUBIN - TOTAL 0.33 mg/dL (0.2-1.3); CALCIUM 8.3 mg/dL (8.5-10.1); CARBON DIOXIDE 22.6 mmol/L (21.0-32.0); CREATININE - SERUM 1.1 mg/dL (0.6-1.3); PROTEIN - SERUM 5.8 g/dL (6.4-8.2); VANCOMYCIN - RANDOM 1.8 ug/mL (10.0-20.0)
--- NOTE | 2020-12-01 06:34 | NUR ---
EMPTIED 30ML SEROSSNG FLUID FROM KT DRAIN. NO OUTPUT VIA BILI DRAIN.
[2020-12-01 06:47] LABS: MCV 93.4 fL (80.0-100.0); WBC 6.3 10x3/uL (4.8-10.8)
[2020-12-01 08:19] LABS: INR 1.83 (0.85-1.17); PROTIME 19.7 SECONDS (11.6-15.0)
[2020-12-01 08:52] VITALS: BP 140/79
[2020-12-01 10:12] LABS: AMPHOTERICIN B MIC 1.0 ug/mL (())
--- NOTE | 2020-12-01 15:11 | NUR ---
UNIT 1 OF 1 PRBC'S INITIATED. PATIENT IS WITHOUT REACTIONS. MONITOR FOR NEEDS. FAMILY AT BEDSIDE.
--- NOTE | 2020-12-01 15:27 | NUR ---
PATIENT CLEANED AND GOWN CHANGED. LARGE AMOUNTS OF GREEN BILE EMESIS AFTER COUGHING. SOME SMALL AMOUNTS ON BED,BUT PATIENT WANTS BED PAD CHANGED AFTER BLOOD COMPLETED.
[2020-12-01 16:53] VITALS: BP 147/79
--- NOTE | 2020-12-01 18:32 | NUR ---
PATIENT RECIEVED ZOFRAN FOR VOMITTING. NOT EATING ANYTHING TODAY. CLEAR LIQUIDS. DRINKING WATER AND EATING ICE CHIPS ONLY. STATED NOT FEELING WELL TODAY AFTER PROCEDURE. IV INTACT. BLOOD FINISHED. VS STABLE. CALL LIGHT WITHIN REACH.
[2020-12-01 20:00] VITALS: BP 142/86
--- NOTE | 2020-12-02 02:42 | NUR ---
I have reviewed this patient and I concur with the Shift Assessment completed by the Licensed Practical Nurse today this shift.
[2020-12-02 04:00] VITALS: BP 132/74
[2020-12-02 07:17] LABS: BASOPHILS 0.3 % (0-2); EOSINOPHILS 1.9 % (0-7); HEMATOCRIT 26.8 % (42.0-54.0); HEMOGLOBIN 8.6 g/dL (13.5-17.5); LYMPHOCYTE ABS# 0.52 10x3/uL (1.32-3.57); LYMPHOCYTES 16.4 % (15-50); MCH 29.5 pg (26.0-34.0); MCHC 32.1 g/dL (31.0-37.0); MCV 91.8 fL (80.0-100.0); MEAN PLATELET VOLUME 10.1 fL (7.4-10.4); MONOCYTES 8.2 % (2-11); NEUTROPHIL ABS# 2.33 10x3/uL (1.78-5.38); NEUTROPHILS 73.2 % (40-80); PLATELET COUNT 184 10x3/uL (130-400); RBC 2.92 10x6/uL (4.20-6.10); RDW 14.1 % (11.5-14.5)
[2020-12-02 07:26] LABS: WBC 3.2 10x3/uL (4.8-10.8)
[2020-12-02 07:54] LABS: ALBUMIN 1.6 g/dL (3.4-5.0); ALKALINE PHOSPHATASE 76 U/L (30-120); ALT (SGPT) 13 U/L (10-68); CALC OSMOLALITY 285 mosm/kg (275-300); CALCIUM 8.2 mg/dL (8.5-10.1); CARBON DIOXIDE 21.2 mmol/L (21.0-32.0); CHLORIDE - SERUM 107 mmol/L (98-107); GLUCOSE 169 mg/dL (74-106); PROTEIN - SERUM 5.6 g/dL (6.4-8.2); SODIUM 139 mmol/L (136-145); UREA NITROGEN 25 mg/dL (7-18); VANCOMYCIN - RANDOM 0.8 ug/mL (10.0-20.0); eGFR NON AFRICAN AMERICAN 81 mL/min (90-120)
[2020-12-02 08:29] VITALS: BP 132/68
[2020-12-02 12:04] VITALS: BP 134/71
--- NOTE | 2020-12-02 14:51 | NUR ---
Nutrition Re-Assessment Emesis over night per MD notes. +BM recently. Diet: NPO for abscessogram, previously on Clear Liquids PPN: Procalamine @ 75mL/hr = 441kcal and 52gms protein Meds noted: reglan, probiotics, abx, lantus, SSI Labs noted: Glu 169(H), alb 1.6(L) Wt: 206# (11/24/20); Admit Wt: 199# (11/13/20) Estimated nutrition needs: 2263-2715kcal (25-30kcal/kg), 90-109gms protein (1-1.3), 2263-2715mL fluid (or per MD) Nutrition Diagnosis: Inadequate oral intake r/t altered GI function AEB NPO, unable to advance diet, need for PPN. Goals: -PO diet to advance past clear liquid yoly or within 24-48hrs -Meet fluid needs -Stable weight Recommendations/Interventions: -Recommend advance PO diet as soon as medically feasible. -If unable to advance PO diet consider initiation of trophic feeds and/or jejunal feeds with elemental formula. -Consider advancing procalamine back to 125mL/hr to better meet estimated energy and protein needs while no enteral feeding. -RD will follow-up 12/04/20.
--- NOTE | 2020-12-02 17:37 | NUR ---
OT NOTE: PT COMPLETED BED MOBILITY WITH SBA. PT COMPLETED EOB SITTING BALANCE WITH SBA. PT COMPLETED BUE AROM EXS TOLERATED WITH SPV. [id number] THANK YOU,CHRISTINE GUAMAN
[2020-12-02 17:50] VITALS: BP 117/66
[2020-12-02 20:00] VITALS: BP 142/76
--- NOTE | 2020-12-03 03:40 | NUR ---
PATIENT HAD PAIN MANAGED WITH THE PRESCRIBED PAIN MEDICATION, HIS MOTHER IS AT BEDSIDE, HE APPEARS TO HAVE BEEN RESTING WELL THROUGH THE NIGHT.
[2020-12-03 04:00] VITALS: BP 138/72
[2020-12-03 06:15] LABS: BASOPHILS 0.3 % (0-2); EOSINOPHILS 1.5 % (0-7); HEMOGLOBIN 8.7 g/dL (13.5-17.5); IMMATURE GRANULOCYTES 0.3 % (0-5); LYMPHOCYTE ABS# 0.47 10x3/uL (1.32-3.57); MCH 29.5 pg (26.0-34.0); MCHC 32.2 g/dL (31.0-37.0); MCV 91.5 fL (80.0-100.0); MEAN PLATELET VOLUME 10.2 fL (7.4-10.4); MONOCYTES 8.7 % (2-11); NEUTROPHIL ABS# 3.03 10x3/uL (1.78-5.38); NEUTROPHILS 77.2 % (40-80); PLATELET COUNT 187 10x3/uL (130-400); RBC 2.95 10x6/uL (4.20-6.10); WBC 3.9 10x3/uL (4.8-10.8)
[2020-12-03 06:55] LABS: ALBUMIN 1.7 g/dL (3.4-5.0); ALKALINE PHOSPHATASE 78 U/L (30-120); ALT (SGPT) 11 U/L (10-68); BILIRUBIN - TOTAL 0.25 mg/dL (0.2-1.3); CALC OSMOLALITY 282 mosm/kg (275-300); CALCIUM 8.1 mg/dL (8.5-10.1); CHLORIDE - SERUM 106 mmol/L (98-107); GLUCOSE 179 mg/dL (74-106); PROTEIN - SERUM 5.8 g/dL (6.4-8.2); SODIUM 138 mmol/L (136-145); UREA NITROGEN 20 mg/dL (7-18); VANCOMYCIN - RANDOM 0.6 ug/mL (10.0-20.0); eGFR NON AFRICAN AMERICAN 81 mL/min (90-120)
--- NOTE | 2020-12-03 07:35 | NUR ---
PT IS RESTING IN BED WITH EYES CLOSED. RESPIRATIONS ARE EVEN AND UNLABORED. PT IS AAO X 4 AND ANSWERS ALL QUESTIONS APPROPRIATELY. PT MOTHER AT BEDSIDE. PT IS EASILY AROUSED WITH VERBAL STIMULATION. PIV TO LEFT WRIST INFUSING PER ORDER WITHOUT DIFFICULTY. PT BS ARE HYPOACTIVE X 4. MIDLINE INCISION NOTED WITH DARLIN. KT DRAIN NOTED WITH SEROSANGUINOUS FLUID IN COLLECTION BULB. BULB IS COMPRESSED. DRESSING IS CDI. PT DENIES PRESENCE OF PAIN/N/V AT THIS TIME. SPORTS DIRECTOR DILAUDID AVAILABLE. INCENTIVE SPIROMETER AT BEDSIDE AND ENCOURAGED. PT VERBALIZES UNDERSTANDING. BED IS IN THE LOWEST POSITION. CALL LIGHT AND BEDSIDE TABLE ARE WITHIN REACH. SIDE RAILS X 2. PT AND PT MOTHER DENY FURTHER NEEDS. WILL CONT TO MONITOR.
[2020-12-03 09:12] VITALS: BP 136/80
[2020-12-03 10:16] LABS: % SATURATION 14 % (15-55); IRON 14 ug/dl (35-150); TOTAL IRON BIND CAPACITY 98 ug/dl (260-445); UNSAT IRON BIND CAPACITY 84 ug/dl (150-375)
[2020-12-03 13:46] VITALS: BP 140/79
--- NOTE | 2020-12-03 16:34 | NUR ---
OT NOTE: PT STATED TO TIRED TO PARTICIPATE. OT ATTEMPTED 3 XS ...PT ASLEEP.
[2020-12-03 17:33] VITALS: BP 151/75
--- NOTE | 2020-12-04 02:43 | NUR ---
ASSESSED AT THE BEGINNING OF THE SHIFT. PT IS ALERAT AND ORIENTED, ABLEA TO VERBALIZE NEEDS. HIS MOM HAS BEEN STAYING IN THE ROOM WITH HIM. HE HAS A MIDLINE INCISION AND J P DRAIN WITH DRESSING IN PLACE AND NO DRAINAGE NOTED. HE HAD A 163 AT 2200 FOR A BLOOD SUGAR WHICH WAS TREATED AND HIS LANTUS WAS GIVEN. INFORMED WE WILL NEED A URINE TO SEND TO LAB AND HE STATED HE WOULD GET US ONE.
[2020-12-04 05:38] LABS: BASOPHILS 0.4 % (0-2); EOSINOPHILS 1.8 % (0-7); HEMATOCRIT 28.1 % (42.0-54.0); HEMOGLOBIN 9.1 g/dL (13.5-17.5); IMMATURE GRANULOCYTES 0.6 % (0-5); LYMPHOCYTE ABS# 0.78 10x3/uL (1.32-3.57); LYMPHOCYTES 15.4 % (15-50); MCH 29.9 pg (26.0-34.0); MCHC 32.4 g/dL (31.0-37.0); MCV 92.4 fL (80.0-100.0); MEAN PLATELET VOLUME 10.3 fL (7.4-10.4); MONOCYTES 6.5 % (2-11); NEUTROPHILS 75.3 % (40-80); PLATELET COUNT 165 10x3/uL (130-400); RBC 3.04 10x6/uL (4.20-6.10); RDW 13.9 % (11.5-14.5)
[2020-12-04 05:39] LABS: WBC 5.1 10x3/uL (4.8-10.8)
[2020-12-04 05:54] LABS: ALBUMIN 1.8 g/dL (3.4-5.0); ALKALINE PHOSPHATASE 79 U/L (30-120); ALT (SGPT) 9 U/L (10-68); BILIRUBIN - TOTAL 0.21 mg/dL (0.2-1.3); CALCIUM 7.8 mg/dL (8.5-10.1); CARBON DIOXIDE 20.9 mmol/L (21.0-32.0); CHLORIDE - SERUM 105 mmol/L (98-107); CREATININE - SERUM 0.8 mg/dL (0.6-1.3); GLUCOSE 198 mg/dL (74-106); PROTEIN - SERUM 5.3 g/dL (6.4-8.2); SODIUM 138 mmol/L (136-145); VANCOMYCIN - RANDOM 0.9 ug/mL (10.0-20.0); eGFR NON AFRICAN AMERICAN > 90 mL/min (90-120)
[2020-12-04 06:01] LABS: CALC OSMOLALITY 282 mosm/kg (275-300); UREA NITROGEN 14 mg/dL (7-18)
[2020-12-04 06:03] LABS: KETONE SMALL mg/dL (NEGATIVE); NITRITE NEGATIVE (NEGATIVE)
[2020-12-04 06:04] LABS: BACTERIA NONE SEEN HPF (NONE SEEN); BILIRUBIN NEGATIVE (NEGATIVE); SQUAMOUS EPITHELIAL 0-5 HPF (0-4); UROBILINOGEN NORMAL mg/dL (< 2); WHITE CELLS - URINE 0-5 HPF (0-1)
--- NOTE | 2020-12-04 07:47 | NUR ---
ALERT AND ORIENTED. ASSESSMENT COMPLETE. DENIES NEEDS. BED LOW. CALL QUARLES AND PERSONAL ITEMS IN REACH. WILL CONTINUE TO MONITOR.
--- NOTE | 2020-12-04 10:20 | NUR ---
THANK YOU SO MUCH FOR THIS REFERRAL. WE MUST RESPECTFULLY DECLINE THE [facility] DOES NOT ACCEPT MEDICAID. ANTWON SARMIENTO LPN, PEER SPECIALIST
[2020-12-04 10:42] VITALS: BP 141/81
[2020-12-04] MEDS ORDERED: HYDROCODON-ACE1 EA10 PO (11:03)
--- NOTE | 2020-12-04 11:30 | NUR ---
KT DRAIN DC PER ORDER.
[2020-12-04 13:29] VITALS: BP 145/76
--- NOTE | 2020-12-04 15:44 | NUR ---
IV REMOVED FROM RIGHT HAND FOR DC. WAITING PATIENT'S MOM TO RETURN TO HOSPITAL IN ORDER TO GO OVER DC PAPERWORK PER PATIENT REQUEST.
--- NOTE | 2020-12-04 17:47 | NUR ---
DC EDUCATION PROVIDED BOTH WRITTEN AND VERBAL. VERBALIZED UNDERSTANDING. DENIES FURTHER QUESTIONS. PATIENT DC HOME WITH MOM WITH ALL BELONGINGS.
--- NOTE | 2020-12-04 18:02 | NUR ---
PATIENT DC HOME WITH MOM WITH ALL BELONGINGS.
--- NOTE | 2020-12-07 13:31 | MORECARE ---
CASE MANAGEMENT DISCHARGE SUMMARY PATIENT: ZENOBIA TREJO UNIT: [id number] ADM DATE: 11/13/20 AGE: 60 : 64 SEX: M ROOM/BED: D.2225 AUTHOR: BRETT,DOC PHYSICIAN: REFERRING PHYSICIAN: MICHAEL SAN MD DATE OF SERVICE: 12/07/20 Case Management Discharge Planning Summary COMMENTS ENTERED DATE: 11/25/20 16:03 CT COMMENT TYPE: Discharge Planning REVIEWER: Lela Wall CM met with patient and his mother Randa at bedside after obtaining verbal consent. CM discussed availability / needs of home health, REHAB and medical equipment. States he is having surgery tomorrow and he may need Home health. Unsure until after surgery. Lives at home with his mother. CM will reassess after surgery. DCP REVIEW SUMMARY ANTICIPATED D/C DATE: EXPECTED LOS : CASE STATUS: DCP Initiated INITIAL REVIEW: 11/13/2020 INITIAL REVIEWER: Lela Wall FINAL DISCHARGE DISPOSITION: : FINAL REVIEWER: FINAL REVIEW DATE: DCP Focus Questions & Answers DCP Screen QUESTION: ANSWER High Risk Factors: : None Walking limitation: Patient stated self rated walking limitation present? : No Age: : 47 - 66 Prior living environment: : Lives with others Disability ranking: : Grade 3: Moderate disability DCP Evaluation QUESTION: ANSWER Patient's current cognitive status: : *Oriented to person, place, situation, time and present Patient's ability to cope with chronic illness : d. No chronic illness Family / Caregiver's ability to cope with chronic illness: : a. Adequate (ability to meet patient's medical needs, ensures patient attends medical appts.) Functional screen assessment: : New onset in weakness or paralysis Physical Status: : Independent with ADL's Family / Caregiver's ability to cope with chronic illness: : a. Adequate (ability to meet patient's medical needs, ensures patient attends medical appts.) Is there a likelihood that the patient will require additional services to return to the preadmission environment? : Yes Living Arrangements: : Home with Parents Baseline cognitive status: : *Oriented to person, place, situation, time and present Results of this evaluation have been discussed with: : Family Comments: : MAY NEED HOME HEALTH AT DISCHARGE. Pharmacy name(s): : [facility] Would patient like to participate in any Care Coordination programs (if applicable): : Not applicable Mental health screen: : No mental health history DCP Re-evaluation QUESTION: ANSWER Would patient like to participate in any Care Coordination programs (if applicable): : Not applicable PATIENT: ZENOBIA TREJO ENCOUNTER: [id number] MEDICAL RECORD#: [id number] ADMISSION DATE: 11/13/2020 DISCHARGE DATE: 12/04/2020 ATTENDING MD: KOMAL HAYS : AGE: 60 MARITAL STATUS: D DC PLAN ID: [id number] FACILITY: [facility] PRINTED ON: 12/07/20 13:30 CT All edits/amendments must be made on the electronic document DICTATION DATE: 12/07/201329 BURRING MACHINE OPERATOR: ROBERTO 12/07/20 133 RPT#: [id number] DC DATE:12/04/20 STATUS: DIS IN [facility] [address] [place] [address] END OF REPORT
--- NOTE | 2020-12-07 17:02 | MORECARE ---
CASE MANAGEMENT DISCHARGE SUMMARY PATIENT: ZENOBIA TREJO UNIT: [id number] ADM DATE: 11/13/20 AGE: 60 : 64 SEX: M ROOM/BED: D.2225 AUTHOR: BRETT,DOC PHYSICIAN: REFERRING PHYSICIAN: MICHAEL SAN MD DATE OF SERVICE: 12/07/20 Case Management Discharge Planning Summary COMMENTS ENTERED DATE: 11/25/20 16:03 CT COMMENT TYPE: Discharge Planning REVIEWER: Lela Wall CM met with patient and his mother Randa at bedside after obtaining verbal consent. CM discussed availability / needs of home health, REHAB and medical equipment. States he is having surgery tomorrow and he may need Home health. Unsure until after surgery. Lives at home with his mother. CM will reassess after surgery. DCP REVIEW SUMMARY ANTICIPATED D/C DATE: EXPECTED LOS : CASE STATUS: DCP Initiated INITIAL REVIEW: 11/13/2020 INITIAL REVIEWER: Lela Wall FINAL DISCHARGE DISPOSITION: : FINAL REVIEWER: FINAL REVIEW DATE: DCP Focus Questions & Answers DCP Screen QUESTION: ANSWER High Risk Factors: : None Walking limitation: Patient stated self rated walking limitation present? : No Age: : 47 - 66 Prior living environment: : Lives with others Disability ranking: : Grade 3: Moderate disability DCP Evaluation QUESTION: ANSWER Patient's current cognitive status: : *Oriented to person, place, situation, time and present Patient's ability to cope with chronic illness : d. No chronic illness Family / Caregiver's ability to cope with chronic illness: : a. Adequate (ability to meet patient's medical needs, ensures patient attends medical appts.) Functional screen assessment: : New onset in weakness or paralysis Physical Status: : Independent with ADL's Family / Caregiver's ability to cope with chronic illness: : a. Adequate (ability to meet patient's medical needs, ensures patient attends medical appts.) Is there a likelihood that the patient will require additional services to return to the preadmission environment? : Yes Living Arrangements: : Home with Parents Baseline cognitive status: : *Oriented to person, place, situation, time and present Results of this evaluation have been discussed with: : Family Comments: : MAY NEED HOME HEALTH AT DISCHARGE. Pharmacy name(s): : [facility] Would patient like to participate in any Care Coordination programs (if applicable): : Not applicable Mental health screen: : No mental health history DCP Re-evaluation QUESTION: ANSWER Would patient like to participate in any Care Coordination programs (if applicable): : Not applicable PATIENT: ZENOBIA TREJO ENCOUNTER: [id number] MEDICAL RECORD#: [id number] ADMISSION DATE: 11/13/2020 DISCHARGE DATE: 12/04/2020 ATTENDING MD: KOMAL HAYS : AGE: 60 MARITAL STATUS: D DC PLAN ID: [id number] FACILITY: [facility] PRINTED ON: 12/07/20 17:02 CT All edits/amendments must be made on the electronic document DICTATION DATE: 12/07/201701 METALIZER FIELD OPERATION: ROBERTO 12/07/201701 RPT#: [id number] DC DATE:12/04/20 STATUS: DIS IN [facility] [address] [place] [address] END OF REPORT
== END 2020-12-04 18:02 | disposition home health service (06) | DRG 414 ==
LOC: D.ER 14:39 → D.MS 18:55
PROVIDERS: Emergency Medicine; Family Medicine; General Practice; Internal Medicine Gastroenterology; Radiology Vascular & Interventional Radiology; Specialist; Surgery; ADMIT Emergency Medicine; ATTEND Emergency Medicine
PROC: 0DBN8ZZ Excision of Sigmoid Colon, Via Natural or Artificial Opening Endoscopic (ICD-10-PCS; 2020-11-16)
PROC: 0DBL8ZX Excision of Transverse Colon, Via Natural or Artificial Opening Endoscopic, Diagnostic (ICD-10-PCS; 2020-11-16)
PROC: 0DBM8ZZ Excision of Descending Colon, Via Natural or Artificial Opening Endoscopic (ICD-10-PCS; principal; 2020-11-16 10:36)
PROC: 0F9530Z Drainage of Right Hepatic Duct with Drainage Device, Percutaneous Approach (ICD-10-PCS; 2020-11-18)
PROC: 0FJ03ZZ Inspection of Liver, Percutaneous Approach (ICD-10-PCS; 2020-11-24)
PROC: 0DB78ZX Excision of Stomach, Pylorus, Via Natural or Artificial Opening Endoscopic, Diagnostic (ICD-10-PCS; 2020-11-26)
PROC: 0DTF0ZZ Resection of Right Large Intestine, Open Approach (ICD-10-PCS; 2020-11-27)
PROC: BF131ZZ Fluoroscopy of Gallbladder and Bile Ducts using Low Osmolar Contrast (ICD-10-PCS; 2020-11-27)
PROC: 0FT40ZZ Resection of Gallbladder, Open Approach (ICD-10-PCS; 2020-11-27 08:00)
PROC: 2W53XYZ Removal of Other Device on Abdominal Wall (ICD-10-PCS; 2020-12-01)
DX: K81.0 Acute cholecystitis (principal); K75.0 Abscess of liver; E87.1 Hypo-osmolality and hyponatremia; N17.9 Acute kidney failure, unspecified; F17.203 Nicotine dependence unspecified, with withdrawal; K56.7 Ileus, unspecified; E11.65 Type 2 diabetes mellitus with hyperglycemia; D64.9 Anemia, unspecified; I10 Essential (primary) hypertension; K21.9 Gastro-esophageal reflux disease without esophagitis; E78.5 Hyperlipidemia, unspecified; G89.29 Other chronic pain; K63.5 Polyp of colon; R16.1 Splenomegaly, not elsewhere classified